=== PATIENT | male | born 1985 | race Two or more races ===

== ENCOUNTER 2019-04-28 16:00 | Inpatient (IN) | payer BC ==
[~2019-04-28] VITALS: Ht 160 cm; Wt 54.4 kg
--- NOTE | 2019-04-28 16:18 | EKG ---
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
[2019-04-28 16:35] LABS: BASO % 0 % (0-3); EOS # 0.5 x10^3/uL (0.0-0.7); EOS % 6 % (0-3); HEMATOCRIT 44.9 % (39.0-53.0); HEMOGLOBIN 15.4 g/dL (13.0-17.5); LYMPH # 2.1 x10^3/uL (1.0-4.8); LYMPH % 26 % (24-48); MEAN CORPUSCULAR HEMOGLOBIN 28 pg (25-35); MEAN CORPUSCULAR HGB CONC 34 g/dL (31-37); MEAN CORPUSCULAR VOLUME 81 fL (79-100); MONO # 0.7 x10^3/uL (0.0-1.1); MONO % 8 % (0-9); NEUT # 4.7 x10^3/uL (1.8-7.7); NEUT % 59 % (31-73); PLATELET COUNT 207 x10^3/uL (140-400); RED BLOOD COUNT 5.58 x10^6/uL (4.30-5.70); RED CELL DISTRIBUTION WIDTH 13.8 % (11.5-14.5); WHITE BLOOD COUNT 7.9 x10^3/uL (4.0-11.0)
[2019-04-28 16:44] LABS: PROTHROMBIN TIME PATIENT 12.7 SEC (11.7-14.0)
[2019-04-28 16:50] LABS: CALCIUM 8.7 mg/dL (8.5-10.1); CREATININE 0.8 mg/dL (0.7-1.3); GFR 111.3; POTASSIUM 3.1 mmol/L (3.5-5.1)
--- NOTE | 2019-04-28 16:52 | PHYS DOC ---
Adult General Chief Complaint Chief Complaint: DIZZY/LIGHT HEADED HPI HPI Patient is a 34 year old male who presents with continued from urgent care today because again EKG on him and it has had possible pericarditis. Patient states she's been having frontal lobe and back of the head pain that is more so with movement. He states that times he has tingling on the bottom of both of his feet but this is more so after he's been sitting for a long period of time. Patient states at times the last week he's had dizziness where the room will be spinning that comes and goes. Patient states that nothing causes the dizziness and it just comes at random. Patient states he also has lower back mid lumbar pain without radiation and is more so when he bends over and tries to stand back up. States he's had a history of a heart block a long time ago and he was on medication for it but they took him off the medication. Patient is a poor historian. Review of Systems Review of Systems Musculoskeletal: low back pain or joint pain [] Neurologic: headache, dizziness, denies focal weakness or sensory changes [] All other systems were reviewed and found to be within normal limits, except as documented in this note. Current Medications Current Medications Current Medications Medications (Trade) Dose Ordered Sig/Clif Start Time Stop Time Status Last Admin Dose Admin Acetaminophen (Tylenol) 650 mg PRN Q4HRS PRN 04/28/19 19:30 04/29/19 19:29 Azithromycin 250 ml @ 250 mls/hr 1X ONCE 04/28/19 18:30 04/28/19 19:29 DC 04/28/19 18:47 250 MLS/HR Ceftriaxone Sodium (Rocephin) 1 gm 1X ONCE 04/28/19 18:30 04/28/19 18:31 DC 04/28/19 18:47 1 GM Diphenhydramine HCl (Benadryl) 25 mg 1X ONCE 04/28/19 17:00 04/28/19 17:01 DC 04/28/19 17:24 25 MG Fentanyl Citrate (Fentanyl 2ml Vial) 50 mcg PRN Q1HR PRN 04/28/19 19:30 04/29/19 19:29 Info (CONTRAST GIVEN -- Rx MONITORING) 1 each PRN DAILY PRN 04/28/19 18:45 04/30/19 18:44 Iohexol (Omnipaque 350 Mg/ml) 90 ml 1X ONCE 04/28/19 18:45 04/28/19 18:46 DC 04/28/19 19:30 90 ML Ketorolac Tromethamine (Toradol 30mg Vial) 30 mg 1X ONCE 04/28/19 18:00 04/28/19 18:01 DC 04/28/19 18:46 30 MG Ondansetron HCl (Zofran) 4 mg PRN Q8HRS PRN 04/28/19 19:30 04/29/19 19:29 Potassium Chloride (Klor-Con) 20 meq 1X ONCE 04/28/19 18:00 04/28/19 18:01 DC 04/28/19 18:47 20 MEQ Prochlorperazine Edisylate (Compazine) 10 mg 1X ONCE 04/28/19 17:00 04/28/19 17:01 DC 04/28/19 17:00 10 MG Sodium Chloride 1,000 ml @ 1,000 mls/hr 1X ONCE 04/28/19 17:00 04/28/19 17:59 DC 04/28/19 17:23 1,000 MLS/HR Allergies Allergies Allergies Coded Allergies Type Severity Reaction Last Updated Verified No Known Drug Allergies 04/28/19 No Physical Exam Physical Exam Constitutional: Well developed, well nourished, no acute distress, non-toxic appearance. [] HENT: Normocephalic, atraumatic, bilateral external ears normal, oropharynx moist, no oral exudates, nose normal. [] Eyes: PERRLA, EOMI, conjunctiva normal, no discharge. [] Neck: Normal range of motion, no tenderness, supple, no stridor. [] Cardiovascular:Heart rate regular rhythm, no murmur [] Lungs & Thorax: Bilateral breath sounds clear to auscultation [] Abdomen: Bowel sounds normal, soft, no tenderness, no masses, no pulsatile masses. [] Skin: Warm, dry, no erythema, no rash. [] Back: No tenderness, no CVA tenderness. [] Extremities: No tenderness, no cyanosis, no clubbing, ROM intact, no edema. [] Neurologic: Alert and oriented X 3, normal motor function, normal sensory function, no focal deficits noted. [] Psychologic: Affect normal, judgement normal, mood normal. Normal Physical exam.[] Current Patient Data Vital Signs Vital Signs Date Time Temp Pulse Resp B/P (MAP) Pulse Ox O2 Delivery O2 Flow Rate FiO2 04/28/19 16:00 98.8 85 16 154/96 (115) 97 Room Air 98.8 Lab Values Laboratory Tests Test 04/28/19 16:10 04/28/19 18:30 White Blood Count 7.9 x10^3/uL (4.0-11.0) Red Blood Count 5.58 x10^6/uL (4.30-5.70) Hemoglobin 15.4 g/dL (13.0-17.5) Hematocrit 44.9 % (39.0-53.0) Mean Corpuscular Volume 81 fL (79-100) Mean Corpuscular Hemoglobin 28 pg (25-35) Mean Corpuscular Hemoglobin Concent 34 g/dL (31-37) Red Cell Distribution Width 13.8 % (11.5-14.5) Platelet Count 207 x10^3/uL (140-400) Neutrophils (%) (Auto) 59 % (31-73) Lymphocytes (%) (Auto) 26 % (24-48) Monocytes (%) (Auto) 8 % (0-9) Eosinophils (%) (Auto) 6 % (0-3) H Basophils (%) (Auto) 0 % (0-3) Neutrophils # (Auto) 4.7 x10^3/uL (1.8-7.7) Lymphocytes # (Auto) 2.1 x10^3/uL (1.0-4.8) Monocytes # (Auto) 0.7 x10^3/uL (0.0-1.1) Eosinophils # (Auto) 0.5 x10^3/uL (0.0-0.7) Basophils # (Auto) 0.0 x10^3/uL (0.0-0.2) Erythrocyte Sedimentation Rate 23 (0-15) H Prothrombin Time 12.7 SEC (11.7-14.0) Prothrombin Time INR 1.0 (0.8-1.1) D-Dimer (Alis) 0.31 ug/mlFEU (0.00-0.50) Sodium Level 139 mmol/L (136-145) Potassium Level 3.1 mmol/L (3.5-5.1) L Chloride Level 103 mmol/L (98-107) Carbon Dioxide Level 25 mmol/L (21-32) Anion Gap 11 (6-14) Blood Urea Nitrogen 8 mg/dL (8-26) Creatinine 0.8 mg/dL (0.7-1.3) Estimated GFR (Cockcroft-Gault) 111.3 BUN/Creatinine Ratio 10 (6-20) Glucose Level 102 mg/dL (70-99) H Calcium Level 8.7 mg/dL (8.5-10.1) Total Bilirubin 0.4 mg/dL (0.2-1.0) Aspartate Amino Transferase (AST) 21 U/L (15-37) Alanine Aminotransferase (ALT) 11 U/L (16-63) L Alkaline Phosphatase 105 U/L (46-116) Troponin I Quantitative < 0.017 ng/mL (0.000-0.055) C-Reactive Protein, Quantitative 8.6 mg/L (0-3.3) H Total Protein 7.9 g/dL (6.4-8.2) Albumin 3.2 g/dL (3.4-5.0) L Albumin/Globulin Ratio 0.7 (1.0-1.7) L Lactic Acid Level 1.3 mmol/L (0.4-2.0) Laboratory Tests 04/28/19 16:10 Laboratory Tests 04/28/19 16:10 EKG EKG Sinus Rhythm and no STEMI[] Interpretation Time: [address] Calderon Radiology/Procedures Radiology/Procedures [] Impressions: [facility] [address] [place] [address] IMAGING REPORT Signed PATIENT: EDA CARO ACCOUNT: [id number] : 1985 LOCATION: ER AGE: 34 SEX: M EXAM STATUS: REG ER ORD. PHYSICIAN: SILVESTRE WOOTEN APRN REASON: PAIN PROCEDURE: LUMBAR SPINE MIN 4V Study: LUMBAR SPINE MIN 4V Indication: Pain. Comparison: None. Findings: Mild ventral wedging of L2 without endplate discontinuity to suggest an acute etiology. Disc spaces are maintained. No advanced facet degeneration. L5 pars defects. Focus of ossification along the L4 spinous process with well-corticated margins. Impression: 1. Chronic-appearing mild ventral wedging of the L2 vertebral body though recommend correlation for pinpoint tenderness. 2. Chronic L5 pars defects without spondylolisthesis of L5 on S1. 3. Well-corticated focus of ossification at the L4 spinous process could be the sequela of remote trauma or developmental. Electronically signed by: JUAN SOLANO MD (04/28/2019 5:17 PM) [facility] DICTATED and SIGNED BY: JUAN SOLANO MD DATE: 04/28/19 1717 [facility] [address] [place] [address] IMAGING REPORT Signed PATIENT: EDA CARO ACCOUNT: [id number] : 1985 LOCATION: ER AGE: 34 SEX: M EXAM STATUS: REG ER ORD. PHYSICIAN: SILVESTRE WOOTEN APRN REASON: HEAD PAIN, NECK PAIN, DIZZY PROCEDURE: CT HEAD AND CERVICAL SPINE WO Exam: CT head and cervical spine without contrast INDICATION: Head pain and neck pain TECHNIQUE: Sequential axial images through the head and cervical spine were obtained without the administration of IV contrast. Comparisons: None FINDINGS: Head: No focal parenchymal lesion or hemorrhage is identified. There is no midline shift or sulcal effacement. No acute vascular territory infarction is identified. Kirkpatrick-white distinction is preserved. The ventricular system is within normal limits without compression hydrocephalus. The basal cisterns are well maintained. The visualized portions of the paranasal sinuses and mastoid air cells are well-pneumatized. No acute fractures. Cervical spine: Vertebral body heights and alignment are well-maintained. Fracture to the cervical spine is not identified. No significant spondylotic changes identified in the cervical spine. There is a partially visualized at least 0.9 cm nodule in the right lung apex. IMPRESSION: 1. No acute intracranial abnormality. 2. Negative CT C-spine for acute traumatic injury. 3. Partially visualized at least 9 mm nodule at the right lung apex. Further evaluation with nonemergent chest CT is recommended. Exposure: One or more of the following in the visualized dose reduction techniques were utilized for this examination: 1. Automated exposure control 2. Adjustment of the MA and/or KV according to patient size Use of iterative of reconstructive technique Electronically signed by: Belinda Chiang MD (04/28/2019 5:07 PM) [facility] DICTATED and SIGNED BY: BELINDA CHIANG MD DATE: 04/28/19 17[id number] [place] [address] IMAGING REPORT Signed PATIENT: EDA CARO ACCOUNT: [id number] : 1985 LOCATION: ER AGE: 34 SEX: M EXAM STATUS: REG ER ORD. PHYSICIAN: SILVESTRE WOOTEN APRN REASON: PAIN PROCEDURE: CHEST PA & LATERAL Study: CHEST PA LATERAL Indication: Pain. Comparison: None. Findings: Hazy opacities at the periphery of the right upper lobe extending to the pleura. No pleural effusion or pneumothorax. Somewhat prominent central vasculature. No displaced rib fracture is seen. No free air under the diaphragm. Impression: Hazy opacities at the periphery of the right upper lobe extending to the pleural margin. The radiographic appearance is nonspecific and could represent infectious infiltrates, pulmonary infarcts or the sequela of a prior infectious or inflammatory insult. Correlation with laboratory analysis and patient history is needed. At a minimum, short-term radiographic follow-up is needed to document stability or resolution. Electronically signed by: JUAN SOLANO MD (04/28/2019 5:11 PM) [facility] DICTATED and SIGNED BY: JUAN SOLANO MD DATE: 04/28/[address] [address] IMAGING REPORT Signed PATIENT: EDA CARO ACCOUNT: [id number] : 1985 LOCATION: ER AGE: 34 SEX: M EXAM STATUS: REG ER ORD. PHYSICIAN: SILVESTRE WOOTNE APRN REASON: abnormal chest xray PROCEDURE: CT ANGIOGRAPHY CHEST Exam: CT of chest with contrast INDICATION: Abnormal chest x-ray TECHNIQUE: Sequential axial images through the chest obtained following the administration of 90 mL of Omni 300 IV contrast. Sagittal and coronal reformatted images were reconstructed from the axial data and reviewed. 3-D reformatted images were reconstructed from the axial data and reviewed. Comparisons: Chest x-ray same day FINDINGS: Visualized portions of the thyroid are unremarkable. Several prominent mildly enlarged prevascular and pretracheal lymph nodes are noted. Heart size is normal. No pericardial effusion. Thoracic aorta has a normal course and caliber. Pulmonary artery is not enlarged. No pulmonary embolus is identified within the main, lobar or segmental pulmonary arteries. Airways are patent. There is nodular opacities at the right upper lobe which are clustered. The largest nodule in the right lung apex is cavitary measuring up to 2.2 cm in diameter. No pneumothorax. No pleural effusion or thickening. Partially visualized cystic lesions at the kidneys bilaterally. No suspicious osseous lesions or acute fractures. IMPRESSION: 1. Numerous pulmonary nodules clustered in the right upper lobe one of which is cavitary. Findings are favored to be infectious rather than malignant in etiology, given distribution. Follow-up imaging posttreatment to ensure resolution is recommended. 2. No pulmonary embolus identified within the main, lobar or segmental pulmonary arteries. Exposure: One or more of the following in the visualized dose reduction techniques were utilized for this examination: 1. Automated exposure control 2. Adjustment of the MA and/or KV according to patient size 3. Use of iterative of reconstructive technique Electronically signed by: Belinda Chiang MD (04/28/2019 7:54 PM) [facility] DICTATED and SIGNED BY: BELINDA CHIANG MD DATE: 04/28/191953 Course & Med Decision Making Course & Med Decision Making Alert and oriented. Ambulatory with a steady gait. No neck stiffness and patient has full range of motion of his neck. Patient at first stated that he had upper neck pain but when asked to point to where his neck pain was he pointed to the back base of the skull. No tenderness to palpation to the neck or his back. No spinal any bony back tenderness. No paraspinal back tenderness. Denies injuries. Patient has frontal lobe headache and headache to the lower back of the skull. Patient denies shortness of breath, chest pain, fever, visual changes, weakness, cough, palpitations, recent illness, abdominal pain, nausea, vomiting, diarrhea. Skin pink warm and dry. Speaks in full Sentences. PERRLA. Moves all extremities equally. Family members in the room interpreting for the patient. Patient states at home he had only been taking Tylenol to help with his pain. Patient states his symptoms have been going on for 1 week. Patient's rating his overall pain an 8 out of 10 at this time. Patient denies any dizziness at this time. EKG and emergency room is sinus rhythm and no STEMI. No extremity swelling. Lungs are clear to auscultation all lobes. Heart rate regular rate and rhythm and no murmurs or abnormal heart sounds. No pain to the chest with palpa tion. He denies any pleuritic chest pain. Vital signs are within normal limits. Patient speaks Lao. Chest xray shows Impression: Hazy opacities at the periphery of the right upper lobe extending to the pleural margin. The radiographic appearance is nonspecific and could represent infectious infiltrates, pulmonary infarcts or the sequela of a prior infectious or inflammatory insult. Correlation with laboratory analysis and patient history is needed. At a minimum, short-term radiographic follow-up is needed to document stability or resolution. CT head and cervical spine: IMPRESSION: 1. No acute intracranial abnormality. 2. Negative CT C-spine for acute traumatic injury. 3. Partially visualized at least 9 mm nodule at the right lung apex. Further evaluation with nonemergent chest CT is recommended. Lumbar spine: Impression: 1. Chronic-appearing mild ventral wedging of the L2 vertebral body though recommend correlation for pinpoint tenderness. 2. Chronic L5 pars defects without spondylolisthesis of L5 on S1. 3. Well-corticated focus of ossification at the L4 spinous process could be the sequela of remote trauma or developmental. Sedimentation rate and CRP are elevated. Chest x-ray is negative as stated above. When orthostatics were being done patient was unable to stand because he states that he feels like he is drunk. Patient states he started feeling that way when he sat up. Layin heart rate, 125/74; sitting 88 heart rate, 137/86. I have started the patient on azithromycin and Rocephin due to possible pneumonia. I consulted with Dr Guzman on this patient he has examined the patient. I have spoken to Dr. Jarquin who states to order a quantitative urine cold blood tests on the patient. Patient is placed on TB precautions. Patient is admitted t o the [facility]. Dragon Disclaimer Dragon Disclaimer This electronic medical record was generated, in whole or in part, using a voice recognition dictation system. NIHSS Stroke Scale NIH Stroke Scale: NIH Stroke Scale Response (Comments) Value Level of Consciousness: 0 Alert/Responsive 0 LOC Questions: 0 Answers both correctly 0 LOC Commands: 0 Performs both tasks 0 Best Gaze: 0 Normal 0 Visual: 0 No visual loss 0 Facial Palsy: 0 Normal, symmetrical 0 Motor - Left Arm 0 No drift 0 Motor - Right Arm 0 No drift 0 Motor - Left Leg 0 No drift 0 Motor: Right Leg 0 No drift 0 Limb Ataxia: 0 Absent 0 Sensory: 0 No loss 0 Best Language: 0 Normal 0 Dysathria: 0 Normal 0 Extinction and Inattention: 0 Normal 0 Total 0 Departure Departure Impression: Primary Impression: Dizziness Additional Impression: Head pain Disposition: 09 ADMITTED INPATIENT Admitting Physician: LEILANI BENÍTEZ) Condition: STABLE Referrals: UNKNOWN PCP NAME (PCP) Problem Qualifiers Additional Impression: Head pain Headache type: unspecified Headache chronicity pattern: acute headache Intractability: not intractable Qualified Codes: R51 - Headache SILVESTRE WOOTEN COUN[employer] Apr 28, 2019 16:52
[2019-04-28] MEDS ORDERED: diphenhydrAMINE 50 MG/ML VIAL IVP ONE (17:00)
[2019-04-28] MEDS ORDERED: PROCHLORPERAZINE 10 MG/2 ML VIAL. IV ONE (17:00)
[2019-04-28] MEDS ORDERED: IV NORMAL SALINE 1000ML BAG 1,000 ML IV ONE (17:00)
[2019-04-28 17:03] LABS: ALBUMIN 3.2 g/dL (3.4-5.0); ALBUMIN/GLOBULIN RATIO 0.7 (1.0-1.7); TOTAL BILIRUBIN 0.4 mg/dL (0.2-1.0); TOTAL PROTEIN 7.9 g/dL (6.4-8.2)
--- NOTE | 2019-04-28 17:10 | RAD ---
Exam: CT head and cervical spine without contrast INDICATION: Head pain and neck pain TECHNIQUE: Sequential axial images through the head and cervical spine were obtained without the administration of IV contrast. Comparisons: None FINDINGS: Head: No focal parenchymal lesion or hemorrhage is identified. There is no midline shift or sulcal effacement. No acute vascular territory infarction is identified. Kirkpatrick-white distinction is preserved. The ventricular system is within normal limits without compression hydrocephalus. The basal cisterns are well maintained. The visualized portions of the paranasal sinuses and mastoid air cells are well-pneumatized. No acute fractures. Cervical spine: Vertebral body heights and alignment are well-maintained. Fracture to the cervical spine is not identified. No significant spondylotic changes identified in the cervical spine. There is a partially visualized at least 0.9 cm nodule in the right lung apex. IMPRESSION: 1. No acute intracranial abnormality. 2. Negative CT C-spine for acute traumatic injury. 3. Partially visualized at least 9 mm nodule at the right lung apex. Further evaluation with nonemergent chest CT is recommended. Exposure: One or more of the following in the visualized dose reduction techniques were utilized for this examination: 1. Automated exposure control 2. Adjustment of the MA and/or KV according to patient size Use of iterative of reconstructive technique Electronically signed by: Belinda Thornton MD (04/28/2019 5:07 PM) [facility]
--- NOTE | 2019-04-28 17:14 | RAD ---
Study: CHEST PA LATERAL Indication: Pain. Comparison: None. Findings: Hazy opacities at the periphery of the right upper lobe extending to the pleura. No pleural effusion or pneumothorax. Somewhat prominent central vasculature. No displaced rib fracture is seen. No free air under the diaphragm. Impression: Hazy opacities at the periphery of the right upper lobe extending to the pleural margin. The radiographic appearance is nonspecific and could represent infectious infiltrates, pulmonary infarcts or the sequela of a prior infectious or inflammatory insult. Correlation with laboratory analysis and patient history is needed. At a minimum, short-term radiographic follow-up is needed to document stability or resolution. Electronically signed by: JUAN SOLANO MD (04/28/2019 5:11 PM) [facility]
--- NOTE | 2019-04-28 17:20 | RAD ---
Study: LUMBAR SPINE MIN 4V Indication: Pain. Comparison: None. Findings: Mild ventral wedging of L2 without endplate discontinuity to suggest an acute etiology. Disc spaces are maintained. No advanced facet degeneration. L5 pars defects. Focus of ossification along the L4 spinous process with well-corticated margins. Impression: 1. Chronic-appearing mild ventral wedging of the L2 vertebral body though recommend correlation for pinpoint tenderness. 2. Chronic L5 pars defects without spondylolisthesis of L5 on S1. 3. Well-corticated focus of ossification at the L4 spinous process could be the sequela of remote trauma or developmental. Electronically signed by: JUAN SOLANO MD (04/28/2019 5:17 PM) [facility]
[2019-04-28] MEDS ORDERED: POTASSIUM CHLORIDE 20 MEQ TABLET.ER. PO ONE (18:00)
[2019-04-28] MEDS ORDERED: KETOROLAC 30 MG/ML VIAL. IVP ONE (18:00)
[2019-04-28] MEDS ORDERED: AZITHRMYCN 500MG IVPB FOR OMNI 250 ML IV ONE (18:30)
[2019-04-28] MEDS ORDERED: cefTRIAXone IV Push 1 GM VIAL. IVP ONE (18:30)
[2019-04-28] MEDS ORDERED: CONTRAST GIVEN. MC PRN (18:45)
[2019-04-28] MEDS ORDERED: IOHEXOL 350 MG/ML 100 ML VIAL. IV ONE (18:45)
[2019-04-28] MEDS ORDERED: fentaNYL PF VIAL 100 MCG/2 ML VIAL IV PRN (19:30)
[2019-04-28] MEDS ORDERED: ONDANSETRON PF 4 MG/2 ML VIAL. IV PRN (19:30)
[2019-04-28] MEDS ORDERED: ACETAMINOPHEN 325 MG TABLET. PO PRN (19:30)
--- NOTE | 2019-04-28 19:57 | RAD ---
Exam: CT of chest with contrast INDICATION: Abnormal chest x-ray TECHNIQUE: Sequential axial images through the chest obtained following the administration of 90 mL of Omni 300 IV contrast. Sagittal and coronal reformatted images were reconstructed from the axial data and reviewed. 3-D reformatted images were reconstructed from the axial data and reviewed. Comparisons: Chest x-ray same day FINDINGS: Visualized portions of the thyroid are unremarkable. Several prominent mildly enlarged prevascular and pretracheal lymph nodes are noted. Heart size is normal. No pericardial effusion. Thoracic aorta has a normal course and caliber. Pulmonary artery is not enlarged. No pulmonary embolus is identified within the main, lobar or segmental pulmonary arteries. Airways are patent. There is nodular opacities at the right upper lobe which are clustered. The largest nodule in the right lung apex is cavitary measuring up to 2.2 cm in diameter. No pneumothorax. No pleural effusion or thickening. Partially visualized cystic lesions at the kidneys bilaterally. No suspicious osseous lesions or acute fractures. IMPRESSION: 1. Numerous pulmonary nodules clustered in the right upper lobe one of which is cavitary. Findings are favored to be infectious rather than malignant in etiology, given distribution. Follow-up imaging posttreatment to ensure resolution is recommended. 2. No pulmonary embolus identified within the main, lobar or segmental pulmonary arteries. Exposure: One or more of the following in the visualized dose reduction techniques were utilized for this examination: 1. Automated exposure control 2. Adjustment of the MA and/or KV according to patient size 3. Use of iterative of reconstructive technique Electronically signed by: Belinda Thornton MD (04/28/2019 7:54 PM) [facility]
[2019-04-28 22:25] VITALS: BP 136/89
[2019-04-29 03:50] VITALS: BP 131/77
[2019-04-29 07:00] VITALS: BP 140/93
--- NOTE | 2019-04-29 07:52 | PDOC1 ---
History and Physical Date of Admission Date of Admission DATE: 04/29/19 TIME: 07:50 Identification/Chief Complaint Chief Complaint SEEN IN ER ,patient denies shortness of breath, chest pain, fever, visual changes, weakness, cough, palpitations, recent illness, abdominal pain, nausea, vomiting, diarrhea. Skin pink warm and dry. Speaks in full Sentences. PERRLA. Moves all extremities equally. Family members in the room interpreting for the patient. Patient states at home he had only been taking Tylenol to help with his pain symptoms have been going on for 1 week. pain an 8 out of 10 at this time. Family History Family History: Hypertension Social History Smoke: No ALCOHOL: none Drugs: None Current Problem List Problem List Problems Medical Problems: (1) Dizziness Status: Acute (2) Head pain Status: Acute Current Medications Current Medications Current Medications Prochlorperazine Edisylate (Compazine) 10 mg 1X ONCE IV Last administered on 04/28/19at 17:00; Start 04/28/19 at 17:00; Stop 04/28/19 at 17:01; Status DC Diphenhydramine HCl (Benadryl) 25 mg 1X ONCE IVP Last administered on 04/28/19at 17:24; Start 04/28/19 at 17:00; Stop 04/28/19 at 17:01; Status DC Sodium Chloride 1,000 ml @ 1,000 mls/hr 1X ONCE IV Last administered on 04/28/19at 17:23; Start 04/28/19 at 17:00; Stop 04/28/19 at 17:59; Status DC Potassium Chloride (Klor-Con) 20 meq 1X ONCE PO Last administered on 04/28/19at 18:47; Start 04/28/19 at 18:00; Stop 04/28/19 at 18:01; Status DC Ketorolac Tromethamine (Toradol 30mg Vial) 30 mg 1X ONCE IVP Last administered on 04/28/19at 18:46; Start 04/28/19 at 18:00; Stop 04/28/19 at 18:01; Status DC Azithromycin 250 ml @ 250 mls/hr 1X ONCE IV Last administered on 04/28/19at 18:47; Start 04/28/19 at 18:30; Stop 04/28/19 at 19:29; Status DC Ceftriaxone Sodium (Rocephin) 1 gm 1X ONCE IVP Last administered on 04/28/19at 18:47; Start 04/28/19 at 18:30; Stop 04/28/19 at 18:31; Status DC Iohexol (Omnipaque 350 Mg/ml) 90 ml 1X ONCE IV Last administered on 04/28/19at 19:30; Start 04/28/19 at 18:45; Stop 04/28/19 at 18:46; Status DC Info (CONTRAST GIVEN -- Rx MONITORING) 1 each PRN DAILY PRN MC SEE COMMENTS; Start 04/28/19 at 18:45; Stop 04/30/19 at 18:44 Ondansetron HCl (Zofran) 4 mg PRN Q8HRS PRN IV NAUSEA/VOMITING; Start 04/28/19 at 19:30; Stop 04/29/19 at 19:29 Fentanyl Citrate (Fentanyl 2ml Vial) 50 mcg PRN Q1HR PRN IV PAIN; Start 04/28/19 at 19:30; Stop 04/29/19 at 19:29 Acetaminophen (Tylenol) 650 mg PRN Q4HRS PRN PO FEVER; Start 04/28/19 at 19:30; Stop 04/29/19 at 19:29 Magnesium Sulfate 100 ml @ 25 mls/hr 1X ONCE IV ; Start 04/29/19 at 09:00; Stop 04/29/19 at 12:59 Allergies Allergies: Coded Allergies: No Known Drug Allergies (Unverified , 04/28/19) ROS Review of System Review of Systems Review of Systems Musculoskeletal: low back pain or joint pain [] Neurologic: headache, dizziness, denies focal weakness or sensory changes [] All other systems were reviewed and found to be within normal limits, except as documented in this note. General: YES: Fatigue Hematological and Lymphatic: No: Bleeding Problems, Blood Clots, Blood Transfusions, Brusing, Night Sweats, Pallor, Swollen Lymph Nodes, Other Respiratory: No: Cough, Hemoptysis, Orthopnea, Pleuritic Pain, Shortness of breath, SOB with excertion, Sputum Changes, Stridor, Tachypnea, Wheezing, Other Gastrointestinal: No Nausea, No Vomiting, No Abdominal Pain, No Diarrhea, No Constipation, No Melena, No Hematochezia, No Other Physical Exam Physical Exam Physical Exam Physical Exam Constitutional: Well developed, well nourished, no acute distress, non-toxic appearance. [] HENT: Normocephalic, atraumatic, bilateral external ears normal, oropharynx mo ist, no oral exudates, nose normal. [] Eyes: PERRLA, EOMI, conjunctiva normal, no discharge. [] Neck: Normal range of motion, no tenderness, supple, no stridor. [] Cardiovascular:Heart rate regular rhythm, no murmur [] Lungs & Thorax: Bilateral breath sounds clear to auscultation [] Abdomen: Bowel sounds normal, soft, no tenderness, no masses, no pulsatile masses. [] Skin: Warm, dry, no erythema, no rash. [] Back: No tenderness, no CVA tenderness. [] Extremities: No tenderness, no cyanosis, no clubbing, ROM intact, no edema. [] Neurologic: Alert and oriented X 3, normal motor function, normal sensory function, no focal deficits noted. [] Psychologic: Affect normal, judgement normal, mood normal. General: No acute distress HEENT: EOMI, Mucous membr. moist/pink Abdomen: Soft Neuro: Normal speech, Cranial nerves 3-12 NL Psych/Mental Status: Mental status NL, Mood NL Vitals Vitals Vital Signs Date Time Temp Pulse Resp B/P (MAP) Pulse Ox O2 Delivery O2 Flow Rate FiO2 04/29/19 03:50 98.2 66 17 131/77 (95) 98 Room Air 98.2 Labs Labs Laboratory Tests Test 04/28/19 16:10 04/28/19 18:30 White Blood Count 7.9 x10^3/uL (4.0-11.0) Red Blood Count 5.58 x10^6/uL (4.30-5.70) Hemoglobin 15.4 g/dL (13.0-17.5) Hematocrit 44.9 % (39.0-53.0) Mean Corpuscular Volume 81 fL (79-100) Mean Corpuscular Hemoglobin 28 pg (25-35) Mean Corpuscular Hemoglobin Concent 34 g/dL (31-37) Red Cell Distribution Width 13.8 % (11.5-14.5) Platelet Count 207 x10^3/uL (140-400) Neutrophils (%) (Auto) 59 % (31-73) Lymphocytes (%) (Auto) 26 % (24-48) Monocytes (%) (Auto) 8 % (0-9) Eosinophils (%) (Auto) 6 % (0-3) Basophils (%) (Auto) 0 % (0-3) Neutrophils # (Auto) 4.7 x10^3/uL (1.8-7.7) Lymphocytes # (Auto) 2.1 x10^3/uL (1.0-4.8) Monocytes # (Auto) 0.7 x10^3/uL (0.0-1.1) Eosinophils # (Auto) 0.5 x10^3/uL (0.0-0.7) Basophils # (Auto) 0.0 x10^3/uL (0.0-0.2) Erythrocyte Sedimentation Rate 23 (0-15) Prothrombin Time 12.7 SEC (11.7-14.0) Prothromb Time International Ratio 1.0 (0.8-1.1) D-Dimer (Alis) 0.31 ug/mlFEU (0.00-0.50) Sodium Level 139 mmol/L (136-145) Potassium Level 3.1 mmol/L (3.5-5.1) Chloride Level 103 mmol/L (98-107) Carbon Dioxide Level 25 mmol/L (21-32) Anion Gap 11 (6-14) Blood Urea Nitrogen 8 mg/dL (8-26) Creatinine 0.8 mg/dL (0.7-1.3) Estimated GFR (Cockcroft-Gault) 111.3 BUN/Creatinine Ratio 10 (6-20) Glucose Level 102 mg/dL (70-99) Calcium Level 8.7 mg/dL (8.5-10.1) Magnesium Level 1.7 mg/dL (1.8-2.4) Total Bilirubin 0.4 mg/dL (0.2-1.0) Aspartate Amino Transf (AST/SGOT) 21 U/L (15-37) Alanine Aminotransferase (ALT/SGPT) 11 U/L (16-63) Alkaline Phosphatase 105 U/L (46-116) Troponin I Quantitative < 0.017 ng/mL (0.000-0.055) C-Reactive Protein, Quantitative 8.6 mg/L (0-3.3) Total Protein 7.9 g/dL (6.4-8.2) Albumin 3.2 g/dL (3.4-5.0) Albumin/Globulin Ratio 0.7 (1.0-1.7) Lactic Acid Level 1.3 mmol/L (0.4-2.0) Laboratory Tests Test 04/28/19 16:10 04/28/19 18:30 White Blood Count 7.9 x10^3/uL (4.0-11.0) Red Blood Count 5.58 x10^6/uL (4.30-5.70) Hemoglobin 15.4 g/dL (13.0-17.5) Hematocrit 44.9 % (39.0-53.0) Mean Corpuscular Volume 81 fL (79-100) Mean Corpuscular Hemoglobin 28 pg (25-35) Mean Corpuscular Hemoglobin Concent 34 g/dL (31-37) Red Cell Distribution Width 13.8 % (11.5-14.5) Platelet Count 207 x10^3/uL (140-400) Neutrophils (%) (Auto) 59 % (31-73) Lymphocytes (%) (Auto) 26 % (24-48) Monocytes (%) (Auto) 8 % (0-9) Eosinophils (%) (Auto) 6 % (0-3) Basophils (%) (Auto) 0 % (0-3) Neutrophils # (Auto) 4.7 x10^3/uL (1.8-7.7) Lymphocytes # (Auto) 2.1 x10^3/uL (1.0-4.8) Monocytes # (Auto) 0.7 x10^3/uL (0.0-1.1) Eosinophils # (Auto) 0.5 x10^3/uL (0.0-0.7) Basophils # (Auto) 0.0 x10^3/uL (0.0-0.2) Erythrocyte Sedimentation Rate 23 (0-15) Prothrombin Time 12.7 SEC (11.7-14.0) Prothromb Time International Ratio 1.0 (0.8-1.1) D-Dimer (Alis) 0.31 ug/mlFEU (0.00-0.50) Sodium Level 139 mmol/L (136-145) Potassium Level 3.1 mmol/L (3.5-5.1) Chloride Level 103 mmol/L (98-107) Carbon Dioxide Level 25 mmol/L (21-32) Anion Gap 11 (6-14) Blood Urea Nitrogen 8 mg/dL (8-26) Creatinine 0.8 mg/dL (0.7-1.3) Estimated GFR (Cockcroft-Gault) 111.3 BUN/Creatinine Ratio 10 (6-20) Glucose Level 102 mg/dL (70-99) Calcium Level 8.7 mg/dL (8.5-10.1) Magnesium Level 1.7 mg/dL (1.8-2.4) Total Bilirubin 0.4 mg/dL (0.2-1.0) Aspartate Amino Transf (AST/SGOT) 21 U/L (15-37) Alanine Aminotransferase (ALT/SGPT) 11 U/L (16-63) Alkaline Phosphatase 105 U/L (46-116) Troponin I Quantitative < 0.017 ng/mL (0.000-0.055) C-Reactive Protein, Quantitative 8.6 mg/L (0-3.3) Total Protein 7.9 g/dL (6.4-8.2) Albumin 3.2 g/dL (3.4-5.0) Albumin/Globulin Ratio 0.7 (1.0-1.7) Lactic Acid Level 1.3 mmol/L (0.4-2.0) Images Images Study: CHEST PA LATERAL Indication: Pain. Comparison: None. Findings: Hazy opacities at the periphery of the right upper lobe extending to the pleura. No pleural effusion or pneumothorax. Somewhat prominent central vasculature. No displaced rib fracture is seen. No free air under the diaphragm. Impression: Hazy opacities at the periphery of the right upper lobe extending to the pleural margin. The radiographic appearance is nonspecific and could represent infectious infiltrates, pulmonary infarcts or the sequela of a prior infectious or inflammatory insult. Correlation with laboratory analysis and patient history is needed. At a minimum, short-term radiographic follow-up is needed to document stability or resolution. Electronically signed by: JUAN SOLANO MD (04/28/2019 5:11 PM) [facility] DICTATED and SIGNED BY: JUAN SOLANO MD DATE: 04/28/19 1711 Exam: CT of chest with contrast INDICATION: Abnormal chest x-ray TECHNIQUE: Sequential axial images through the chest obtained following the administration of 90 mL of Omni 300 IV contrast. Sagittal and coronal reformatted images were reconstructed from the axial data and reviewed. 3-D reformatted images were reconstructed from the axial data and reviewed. Comparisons: Chest x-ray same day FINDINGS: Visualized portions of the thyroid are unremarkable. Several prominent mildly enlarged prevascular and pretracheal lymph nodes are noted. Heart size is normal. No pericardial effusion. Thoracic aorta has a normal course and caliber. Pulmonary artery is not enlarged. No pulmonary embolus is identified within the main, lobar or segmental pulmonary arteries. Airways are patent. There is nodular opacities at the right upper lobe which are clustered. The largest nodule in the right lung apex is cavitary measuring up to 2.2 cm in diameter. No pneumothorax. No pleural effusion or thickening. Partially visualized cystic lesions at the kidneys bilaterally. No suspicious osseous lesions or acute fractures. IMPRESSION: 1. Numerous pulmonary nodules clustered in the right upper lobe one of which is cavitary. Findings are favored to be infectious rather than malignant in etiology, given distribution. Follow-up imaging posttreatment to ensure resolution is recommended. 2. No pulmonary embolus identified within the main, lobar or segmental pulmonary arteries. VTE Prophylaxis Ordered VTE Prophylaxis Devices: No VTE Pharmacological Prophylaxi: Yes Assessment/Plan Assessment/Plan IMPRESSION: 1. pulmonary nodules clustered in the right upper lobe one of which is cavitary. //favored to be infectious PLAN ADMIT ID CONSULT PULM CONSULT TB TESTING BRONCHOSCOPY CT CHESt/ ABD/ PELVIS dvt prophylaxis iv rocephin, zithromax 74 MIN PT EXAM, CHART REVIEW, > 50% OF TIME spent with pt exam, chart review, pt care coordination NASRA GAN MD Apr 29, 2019 07:52
[2019-04-29 08:29] LABS: CALCIUM 8.1 mg/dL (8.5-10.1); CREATININE 0.7 mg/dL (0.7-1.3); GFR 129.9; POTASSIUM 3.7 mmol/L (3.5-5.1)
[2019-04-29] MEDS ORDERED: MAGNESIUM SULFATE 4GM 100 ML IV ONE (09:00)
[2019-04-29] MEDS ORDERED: POTASSIUM CHLORIDE 20 MEQ TABLET.ER. PO ONE (09:00)
[2019-04-29] MEDS ORDERED: IOHEXOL 300 MG/ML 100ML VIAL. IV ONE (09:30)
[2019-04-29] MEDS ORDERED: IOHEXOL 240 MG/ML 50ML VIAL. PO ONE (09:30)
[2019-04-29] MEDS ORDERED: CONTRAST GIVEN. MC PRN (09:30)
--- NOTE | 2019-04-29 09:36 | CONS ---
DATE OF CONSULTATION: PULMONARY CONSULTATION ATTENDING PHYSICIAN: Vinicio Morris MD REASON FOR CONSULTATION: Abnormal CT chest, pneumonia, cavitary nodules. HISTORY OF PRESENT ILLNESS: The patient is a 34-year-old male from [facility] who does not speak [place]. It was difficult to obtain much history from the patient and I was able to get hold of his attending anesthesiologist who can speak a little bit [place]. According to him, the patient was brought into the hospital as he was complaining of dizziness. He does not complain of much cough, fever or night sweats. He does not know whether he had a PPD done when he arrived in [place] 3 years ago. There are no obvious TB exposures. The patient underwent chest x-ray, which was abnormal with infiltrate in the right upper lobe. As a result, he underwent CTA chest. He had numerous nodules in the right upper lobe, largest of them is in the right lung apex, which is cavitary in about 2.2 cm in size. The patient was started on antibiotic Rocephin along with Zithromax. I have been asked to see him for further evaluation. PAST MEDICAL HISTORY: Significant for some chronic low back pain. PAST SURGICAL HISTORY: No surgeries. ALLERGIES: None. MEDICATIONS: Reviewed as listed in the MRAD. REVIEW OF SYSTEMS: Ten-point systems were obtained. Pertinent positives discussed in my history of present illness, otherwise noncontributory. SOCIAL HISTORY: No significant tobacco history. PHYSICAL EXAMINATION: VITAL SIGNS: Reviewed. He is afebrile. Blood pressure is stable. HEENT: Sclerae nonicteric. NECK: Supple. LUNGS: Clear. CARDIOVASCULAR: Regular rate and rhythm. ABDOMEN: Soft. EXTREMITIES: With no pitting edema. LABORATORY DATA: Reviewed. White cell count 7.9, hemoglobin 15.4, platelets are 207. Sed rate is 23. BUN and creatinine normal. Sodium 143. Troponin less than 0.017. C-reactive protein is 8.6. D-dimer 0.31. IMPRESSION: Multiple right upper lobe nodules, largest of them is 2.2 cm in size and is cavitary. This is a patient who presents with dizziness and headache. There is a paucity of detailed history due to language barrier. However, the differential diagnosis would certainly include infectious etiology such as tuberculosis, cavitary Staph pneumonia, etc.; however, noninfectious etiologies would also include pulmonary vasculitis/Tiffanie's granulomatosis. At this time, he would benefit from bronchoscopy to obtain cultures and I would recommend keep him in respiratory isolation. Alternate option would be to do a CT-guided biopsy of the cavitary nodule. RECOMMENDATIONS: 1. Continue respiratory isolation. 2. Discussed with the patient's landcare facilitator and then he agrees to proceed with bronchoscopy. 3. Would recommend connective tissue workup as an outpatient as it is not permitted while in the hospital. 4. Obtain CT abdomen and pelvis . CT of the head with no malignancy. 5. Continue broad-spectrum antibiotics. 6. ID consult.d/w DR EDUARDO 7. Discussed with RN. We will follow along with you. GENEVIEVE CHAIREZ MD DR: LATOYA/nelly JOB#: [id number] / [id number] TOMMY
[2019-04-29 11:00] VITALS: BP 146/92
--- NOTE | 2019-04-29 11:40 | PDOC ---
Infectious Disease Note Vital Sign Vital Signs Vital Signs Date Time Temp Pulse Resp B/P (MAP) Pulse Ox O2 Delivery O2 Flow Rate FiO2 04/29/19 11:00 98.5 72 16 146/92 (110) 98 Room Air 98.5 Labs Lab Laboratory Tests Test 04/28/19 16:10 04/28/19 18:30 04/29/19 04:45 White Blood Count 7.9 x10^3/uL (4.0-11.0) Red Blood Count 5.58 x10^6/uL (4.30-5.70) Hemoglobin 15.4 g/dL (13.0-17.5) Hematocrit 44.9 % (39.0-53.0) Mean Corpuscular Volume 81 fL (79-100) Mean Corpuscular Hemoglobin 28 pg (25-35) Mean Corpuscular Hemoglobin Concent 34 g/dL (31-37) Red Cell Distribution Width 13.8 % (11.5-14.5) Platelet Count 207 x10^3/uL (140-400) Neutrophils (%) (Auto) 59 % (31-73) Lymphocytes (%) (Auto) 26 % (24-48) Monocytes (%) (Auto) 8 % (0-9) Eosinophils (%) (Auto) 6 % (0-3) Basophils (%) (Auto) 0 % (0-3) Neutrophils # (Auto) 4.7 x10^3/uL (1.8-7.7) Lymphocytes # (Auto) 2.1 x10^3/uL (1.0-4.8) Monocytes # (Auto) 0.7 x10^3/uL (0.0-1.1) Eosinophils # (Auto) 0.5 x10^3/uL (0.0-0.7) Basophils # (Auto) 0.0 x10^3/uL (0.0-0.2) Erythrocyte Sedimentation Rate 23 (0-15) Prothrombin Time 12.7 SEC (11.7-14.0) Prothromb Time International Ratio 1.0 (0.8-1.1) D-Dimer (Alis) 0.31 ug/mlFEU (0.00-0.50) Sodium Level 139 mmol/L (136-145) 143 mmol/L (136-145) Potassium Level 3.1 mmol/L (3.5-5.1) 3.7 mmol/L (3.5-5.1) Chloride Level 103 mmol/L (98-107) 109 mmol/L (98-107) Carbon Dioxide Level 25 mmol/L (21-32) 26 mmol/L (21-32) Anion Gap 11 (6-14) 8 (6-14) Blood Urea Nitrogen 8 mg/dL (8-26) 8 mg/dL (8-26) Creatinine 0.8 mg/dL (0.7-1.3) 0.7 mg/dL (0.7-1.3) Estimated GFR (Cockcroft-Gault) 111.3 129.9 BUN/Creatinine Ratio 10 (6-20) Glucose Level 102 mg/dL (70-99) 89 mg/dL (70-99) Calcium Level 8.7 mg/dL (8.5-10.1) 8.1 mg/dL (8.5-10.1) Magnesium Level 1.7 mg/dL (1.8-2.4) Total Bilirubin 0.4 mg/dL (0.2-1.0) Aspartate Amino Transf (AST/SGOT) 21 U/L (15-37) Alanine Aminotransferase (ALT/SGPT) 11 U/L (16-63) Alkaline Phosphatase 105 U/L (46-116) Troponin I Quantitative < 0.017 ng/mL (0.000-0.055) C-Reactive Protein, Quantitative 8.6 mg/L (0-3.3) Total Protein 7.9 g/dL (6.4-8.2) Albumin 3.2 g/dL (3.4-5.0) Albumin/Globulin Ratio 0.7 (1.0-1.7) Lactic Acid Level 1.3 mmol/L (0.4-2.0) Objective Assessment pt seen, consult dictated Plan Plan of Care / ALISA EDUARDO MD Apr 29, 2019 11:40
[2019-04-29] MEDS ORDERED: LIDOCAINE 1% Multi-Dose 20 ML VIAL. INJ PRN (11:45)
[2019-04-29] MEDS ORDERED: LIDOCAINE 4% TOPICAL 50 ML SOLUTION. MM PRN (11:45)
[2019-04-29] MEDS ORDERED: EPINEPHrine 1 MG/ML VIAL INJ PRN (11:45)
[2019-04-29] MEDS ORDERED: LIDOCAINE 2% VISCOUS 100 ML BOTTLE. MM PRN (11:45)
[2019-04-29] MEDS ORDERED: ALBUTEROL SULFATE 2.5 MG/3 ML NEBU. NEB PRN (11:45)
[2019-04-29] MEDS ORDERED: guaiFENesin ORAL 200 MG/10 ML LIQUID. PO PRN (13:30)
[2019-04-29] MEDS ORDERED: LORazepam 0.5 MG TABLET PO PRN (13:30)
[2019-04-29] MEDS ORDERED: DOCUSATE SODIUM 100 MG CAPSULE. PO PRN (13:30)
[2019-04-29] MEDS ORDERED: ONDANSETRON PF 4 MG/2 ML VIAL. IV PRN (13:30)
[2019-04-29] MEDS ORDERED: ZOLPIDEM 5 MG TABLET. PO PRN (13:30)
[2019-04-29] MEDS ORDERED: cloNIDine HCL 0.1 MG TABLET PO PRN (13:30)
[2019-04-29] MEDS: IPRATRPIUM/ALBUTEROL 0.5/2.5MG 3 ML NEBU. NEB SCH ×3 (13:30→19:59)
[2019-04-29] MEDS ORDERED: 0.9 % SODIUM CHLORIDE 10 ML DISP.SYRIN. IV PRN (13:30)
[2019-04-29] MEDS ORDERED: MAG HYDROX/ALUMINUM HYD/SIMETH 30 ML ORAL.SUSP PO PRN (13:30)
--- NOTE | 2019-04-29 14:37 | RAD ---
EXAM: CT Abdomen and Pelvis with IV contrast CLINICAL HISTORY: Lung nodules, evaluate for malignancy COMPARISON: none TECHNIQUE: Helical CT of the abdomen and pelvis was performed following the administration of intravenous contrast. Axial, coronal and sagittal reformatted images were generated. PQRS compliance statement - One or more of the following individualized dose reduction techniques were utilized for this study: 1. Automated exposure control 2. Adjustment of the mA and/or kV according to patient size 3. Use of iterative reconstruction technique FINDINGS: Lower chest: Lung bases are essentially clear accounting for motion degradation. Abdomen and Pelvis: Subcentimeter hypodense hepatic lesions are too small to accurately characterize. Gallbladder is normal. No biliary ductal dilatation. Pancreas is unremarkable. Adrenal glands are normal. Symmetric nephrograms. Multiple bilateral renal cystic lesions are seen. Additional and numerous bilateral hypodense renal lesions are too small to characterize. Punctate calcifications left upper pole likely scarring/atelectasis. No hydronephrosis or hydroureter. Bladder is unremarkable. Moderate colonic stool content is seen. Appendix is normal. No small or large bowel dilatation. No evidence of bowel obstruction. No abdominal or pelvic lymphadenopathy. No abdominal or pelvic ascites. Bones: Mild wedging of the L2 vertebral body may represent physiologic wedging. Otherwise osseous structures are grossly unremarkable. IMPRESSION: 1. Numerous bilateral hypodense renal lesions are seen, the larger lesions represent cysts, the smaller lesions are too small to accurately characterize. Findings may be seen with polycystic kidney disease. 2. No abdominal or pelvic lymphadenopathy. Electronically signed by: Dannie He MD (04/29/2019 2:34 PM) [id number]
[2019-04-29 15:00] VITALS: BP 139/90
--- NOTE | 2019-04-29 16:25 | NUR ---
SW following pt for dc planning. Chart reviewed. Pt lives at home with family. ID and Pulmonary following. SW will be available as needed.
[2019-04-29] MEDS: IV NORMAL SALINE 1000ML BAG 1,000 ML IV SCH (17:21)
[2019-04-29 19:25] VITALS: BP 137/90
--- NOTE | 2019-04-29 23:24 | CONS ---
DATE OF CONSULTATION: 04/29/2019 REQUESTING PHYSICIAN: Dr. Collado. REASON FOR CONSULTATION: Pulmonary cavitary nodular lesion or pneumonia. HISTORY OF PRESENT ILLNESS: This is a 34-year-old gentleman from [facility]. He is originally [place] who is living in [facility], now he is [place] the [place], presented to the Urgent Care with neck pain, some shortness of breath. The patient was asked to come to the hospital and he got admitted. The patient was found to have a cavitary nodular lesions in the lung, the patient has weight loss. The patient denies any fever, denies any nausea, vomiting, diarrhea. The patient has been now admitted and workup has been ordered. The patient also is supposed to get a bronchoscopy, and the patient has been put on Rocephin and azithromycin. The patient is not able to say how much weight loss he has. In [facility], the patient was told that he had lung, liver and kidney problem, although there is no specific diagnosis that he knows that was given. PAST MEDICAL HISTORY: As I mentioned in the HPI. SOCIAL HISTORY: Negative for smoking, alcohol or drug use. 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 CURRENT MEDICATIONS: Reviewed. PHYSICAL EXAMINATION: GENERAL: Alert and oriented gentleman, not in any distress. VITAL SIGNS: Stable, afebrile. HEENT: NAD. NECK: Supple, no JVP, no lymphadenopathy. LUNGS: Clear. HEART: S1, S2 regular. ABDOMEN: Benign. EXTREMITIES: No edema, cyanosis. SKIN: Unremarkable. NEUROLOGIC: The patient is neurologically alert, awake and appropriate. No focal neurologic deficit. LABORATORY DATA: White count is 7.9, hemoglobin 15.4, platelets are normal. Eosinophils 6%. ESR is 23, BUN and creatinine is normal. Liver functions normal. CT scan of the chest showed multiple pulmonary nodules cluster in the right upper lobe with cavitation. CT abdomen and pelvis is done, results are pending. IMPRESSION: 1. 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 2. Weight loss. 3. Neck and back problems, chronic. RECOMMENDATIONS: Bronchoscopy with bacterial, fungal and AFB stain and culture. Supportive care and we will continue to follow. Discussed with Dr. Nicolas. Thank you very much, Dr. Collado, for giving me the opportunity to participate in this patient's care. ALISA EDUARDO MD DR: MOHAMUD/nelly JOB#: [id number] / [id number] TOMMY
[2019-04-29 23:30] VITALS: BP 139/92
[2019-04-30] MEDS: IV NORMAL SALINE 1000ML BAG 1,000 ML IV SCH ×3 (03:13→21:30)
[2019-04-30 03:35] VITALS: BP 131/87
[2019-04-30 04:02] LABS: BASO % 0 % (0-3); EOS # 0.3 x10^3/uL (0.0-0.7); EOS % 5 % (0-3); HEMATOCRIT 42.1 % (39.0-53.0); HEMOGLOBIN 14.3 g/dL (13.0-17.5); LYMPH # 1.7 x10^3/uL (1.0-4.8); LYMPH % 25 % (24-48); MEAN CORPUSCULAR HEMOGLOBIN 27 pg (25-35); MEAN CORPUSCULAR HGB CONC 34 g/dL (31-37); MEAN CORPUSCULAR VOLUME 81 fL (79-100); MONO # 0.5 x10^3/uL (0.0-1.1); MONO % 7 % (0-9); NEUT # 4.1 x10^3/uL (1.8-7.7); NEUT % 62 % (31-73); PLATELET COUNT 181 x10^3/uL (140-400); RED CELL DISTRIBUTION WIDTH 13.7 % (11.5-14.5); WHITE BLOOD COUNT 6.5 x10^3/uL (4.0-11.0)
[2019-04-30 04:21] LABS: ALBUMIN 2.8 g/dL (3.4-5.0)
[2019-04-30 04:22] LABS: ALBUMIN/GLOBULIN RATIO 0.7 (1.0-1.7); CALCIUM 7.9 mg/dL (8.5-10.1); CREATININE 0.8 mg/dL (0.7-1.3); GFR 111.3; POTASSIUM 3.5 mmol/L (3.5-5.1); TOTAL BILIRUBIN 0.5 mg/dL (0.2-1.0)
[2019-04-30 07:00] VITALS: BP 124/83
[2019-04-30] MEDS ORDERED: IV RINGERS,LACTATED 1000ML 1,000 ML IV SCH (07:00)
[2019-04-30] MEDS ORDERED: EPINEPHrine 1 MG/ML VIAL ONE (07:15)
[2019-04-30] MEDS ORDERED: LIDOCAINE 2% VISCOUS 100 ML BOTTLE. ONE (07:15)
[2019-04-30] MEDS ORDERED: LIDOCAINE 1% Multi-Dose 20 ML VIAL. ONE (07:15)
[2019-04-30] MEDS ORDERED: LIDOCAINE 4% TOPICAL 50 ML SOLUTION. ONE (07:15)
--- NOTE | 2019-04-30 07:22 | PDOC ---
PROGRESS NOTES History of Present Illness History of Present Illness VTE Prophylaxis Ordered VTE Prophylaxis Devices: No VTE Pharmacological Prophylaxi: Yes Assessment/Plan Assessment/Plan IMPRESSION: 1. pulmonary nodules clustered in the right upper lobe one of which is cavitary. //favored to be infectious r/o TB 2. severe protein-caloric malnutrition PLAN ADMIT ID CONSULT PULM CONSULT TB TESTING BRONCHOSCOPY planned CT CHESt/ ABD/ PELVIS dvt prophylaxis iv rocephin, zithromax 38 MIN PT EXAM, CHART REVIEW, > 50% OF TIME spent with pt exam, chart review, pt care coordination Vitals Vitals Vital Signs Date Time Temp Pulse Resp B/P (MAP) Pulse Ox O2 Delivery O2 Flow Rate FiO2 04/30/19 03:35 98.4 64 18 131/87 (102) 98 Room Air 98.4 Physical Exam General: Alert, Oriented X3, Cooperative, No acute distress Heart: Regular rate, Normal S1 Abdomen: Normal bowel sounds, Soft, No tenderness, No hepatosplenomegaly Extremities: No cyanosis Labs LABS PATIENT: EDA CARO ACCOUNT: [id number] : 1985 LOCATION: [address] [place] [address] AGE: 34 SEX: M EXAM STATUS: ADM IN ORD. PHYSICIAN: GENEVIEVE CHAIREZ MD REASON: lung nodules, r/o malignancy PROCEDURE: CT ABD PELV W/ IV CONTRST ONLY EXAM: CT Abdomen and Pelvis with IV contrast CLINICAL HISTORY: Lung nodules, evaluate for malignancy COMPARISON: none TECHNIQUE: Helical CT of the abdomen and pelvis was performed following the administration of intravenous contrast. Axial, coronal and sagittal reformatted images were generated. PQRS compliance statement - One or more of the following individualized dose reduction techniques were utilized for this study: 1. Automated exposure control 2. Adjustment of the mA and/or kV according to patient size 3. Use of iterative reconstruction technique FINDINGS: Lower chest: Lung bases are essentially clear accounting for motion degradation. Abdomen and Pelvis: Subcentimeter hypodense hepatic lesions are too small to accurately characterize. Gallbladder is normal. No biliary ductal dilatation. Pancreas is unremarkable. Adrenal glands are normal. Symmetric nephrograms. Multiple bilateral renal cystic lesions are seen. Additional and numerous bilateral hypodense renal lesions are too small to characterize. Punctate calcifications left upper pole likely scarring/atelectasis. No hydronephrosis or hydroureter. Bladder is unremarkable. Moderate colonic stool content is seen. Appendix is normal. No small or large bowel dilatation. No evidence of bowel obstruction. No abdominal or pelvic lymphadenopathy. No abdominal or pelvic ascites. Bones: Mild wedging of the L2 vertebral body may represent physiologic wedging. Otherwise osseous structures are grossly unremarkable. IMPRESSION: 1. Numerous bilateral hypodense renal lesions are seen, the larger lesions represent cysts, the smaller lesions are too small to accurately characterize. Findings may be seen with polycystic kidney disease. 2. No abdominal or pelvic lymphadenopathy. Electronically signed by: Dannie He MD (04/29/2019 2:34 PM) [id number] PATIENT: EDA CARO ACCOUNT: [id number] : 1985 LOC: [address] [place] [address] AGE: 34 SEX: M STATUS: ADM IN LOCATION: [address] [place] [address] DATE OF SURGERY: BRONCHOSCOPY NOTE INDICATIONS: Possible TB. DESCRIPTION OF PROCEDURE: Informed consent was obtained from the patient's family and consent was obtained. Propofol was used by Anesthesia for sedation. Bronch was introduced through the left nostril. The upper airway was passed. Vocal cords moves equally with respiration. Trachea was entered. No tracheal lesions seen. Right lung was examined, no endobronchial lesions or purulent secretions seen in the right upper lobe, lower lobe or right middle lobe. Bronchoalveolar lavage performed from multiple subsegments of the right upper lobe. Bronch was introduced in the left lung. No purulent secretions seen. No endobronchial lesion seen. IMPRESSION: 1. No endobronchial lesion seen. 2. No mucosal abnormality seen. 3. Bronchoalveolar lavage performed from multiple subsegments of right upper lobe and sent for appropriate studies. GENEVIEVE CHAIREZ MD DR: LATOYA/nelly JOB#: [id number] / [id number] Laboratory Tests Test 04/30/19 03:40 White Blood Count 6.5 x10^3/uL (4.0-11.0) Red Blood Count 5.20 x10^6/uL (4.30-5.70) Hemoglobin 14.3 g/dL (13.0-17.5) Hematocrit 42.1 % (39.0-53.0) Mean Corpuscular Volume 81 fL (79-100) Mean Corpuscular Hemoglobin 27 pg (25-35) Mean Corpuscular Hemoglobin Concent 34 g/dL (31-37) Red Cell Distribution Width 13.7 % (11.5-14.5) Platelet Count 181 x10^3/uL (140-400) Neutrophils (%) (Auto) 62 % (31-73) Lymphocytes (%) (Auto) 25 % (24-48) Monocytes (%) (Auto) 7 % (0-9) Eosinophils (%) (Auto) 5 % (0-3) Basophils (%) (Auto) 0 % (0-3) Neutrophils # (Auto) 4.1 x10^3/uL (1.8-7.7) Lymphocytes # (Auto) 1.7 x10^3/uL (1.0-4.8) Monocytes # (Auto) 0.5 x10^3/uL (0.0-1.1) Eosinophils # (Auto) 0.3 x10^3/uL (0.0-0.7) Basophils # (Auto) 0.0 x10^3/uL (0.0-0.2) Sodium Level 139 mmol/L (136-145) Potassium Level 3.5 mmol/L (3.5-5.1) Chloride Level 105 mmol/L (98-107) Carbon Dioxide Level 24 mmol/L (21-32) Anion Gap 10 (6-14) Blood Urea Nitrogen 11 mg/dL (8-26) Creatinine 0.8 mg/dL (0.7-1.3) Estimated GFR (Cockcroft-Gault) 111.3 BUN/Creatinine Ratio 14 (6-20) Glucose Level 91 mg/dL (70-99) Calcium Level 7.9 mg/dL (8.5-10.1) Total Bilirubin 0.5 mg/dL (0.2-1.0) Aspartate Amino Transf (AST/SGOT) 14 U/L (15-37) Alanine Aminotransferase (ALT/SGPT) 14 U/L (16-63) Alkaline Phosphatase 85 U/L (46-116) Total Protein 7.0 g/dL (6.4-8.2) Albumin 2.8 g/dL (3.4-5.0) Albumin/Globulin Ratio 0.7 (1.0-1.7) Assessment and Plan Assessmemt and Plan Problems Medical Problems: (1) Dizziness Status: Acute (2) Head pain Status: Acute Comment Review of Relevant I have reviewed the following items analilia (where applicable) has been applied. Labs Laboratory Tests Test 04/28/19 16:10 04/28/19 18:30 04/29/19 04:45 04/30/19 03:40 White Blood Count 7.9 x10^3/uL (4.0-11.0) 6.5 x10^3/uL (4.0-11.0) Red Blood Count 5.58 x10^6/uL (4.30-5.70) 5.20 x10^6/uL (4.30-5.70) Hemoglobin 15.4 g/dL (13.0-17.5) 14.3 g/dL (13.0-17.5) Hematocrit 44.9 % (39.0-53.0) 42.1 % (39.0-53.0) Mean Corpuscular Volume 81 fL (79-100) 81 fL (79-100) Mean Corpuscular Hemoglobin 28 pg (25-35) 27 pg (25-35) Mean Corpuscular Hemoglobin Concent 34 g/dL (31-37) 34 g/dL (31-37) Red Cell Distribution Width 13.8 % (11.5-14.5) 13.7 % (11.5-14.5) Platelet Count 207 x10^3/uL (140-400) 181 x10^3/uL (140-400) Neutrophils (%) (Auto) 59 % (31-73) 62 % (31-73) Lymphocytes (%) (Auto) 26 % (24-48) 25 % (24-48) Monocytes (%) (Auto) 8 % (0-9) 7 % (0-9) Eosinophils (%) (Auto) 6 % (0-3) 5 % (0-3) Basophils (%) (Auto) 0 % (0-3) 0 % (0-3) Neutrophils # (Auto) 4.7 x10^3/uL (1.8-7.7) 4.1 x10^3/uL (1.8-7.7) Lymphocytes # (Auto) 2.1 x10^3/uL (1.0-4.8) 1.7 x10^3/uL (1.0-4.8) Monocytes # (Auto) 0.7 x10^3/uL (0.0-1.1) 0.5 x10^3/uL (0.0-1.1) Eosinophils # (Auto) 0.5 x10^3/uL (0.0-0.7) 0.3 x10^3/uL (0.0-0.7) Basophils # (Auto) 0.0 x10^3/uL (0.0-0.2) 0.0 x10^3/uL (0.0-0.2) Erythrocyte Sedimentation Rate 23 (0-15) Prothrombin Time 12.7 SEC (11.7-14.0) Prothromb Time International Ratio 1.0 (0.8-1.1) D-Dimer (Alis) 0.31 ug/mlFEU (0.00-0.50) Sodium Level 139 mmol/L (136-145) 143 mmol/L (136-145) 139 mmol/L (136-145) Potassium Level 3.1 mmol/L (3.5-5.1) 3.7 mmol/L (3.5-5.1) 3.5 mmol/L (3.5-5.1) Chloride Level 103 mmol/L (98-107) 109 mmol/L (98-107) 105 mmol/L (98-107) Carbon Dioxide Level 25 mmol/L (21-32) 26 mmol/L (21-32) 24 mmol/L (21-32) Anion Gap 11 (6-14) 8 (6-14) 10 (6-14) Blood Urea Nitrogen 8 mg/dL (8-26) 8 mg/dL (8-26) 11 mg/dL (8-26) Creatinine 0.8 mg/dL (0.7-1.3) 0.7 mg/dL (0.7-1.3) 0.8 mg/dL (0.7-1.3) Estimated GFR (Cockcroft-Gault) 111.3 129.9 111.3 BUN/Creatinine Ratio 10 (6-20) 14 (6-20) Glucose Level 102 mg/dL (70-99) 89 mg/dL (70-99) 91 mg/dL (70-99) Calcium Level 8.7 mg/dL (8.5-10.1) 8.1 mg/dL (8.5-10.1) 7.9 mg/dL (8.5-10.1) Magnesium Level 1.7 mg/dL (1.8-2.4) Total Bilirubin 0.4 mg/dL (0.2-1.0) 0.5 mg/dL (0.2-1.0) Aspartate Amino Transf (AST/SGOT) 21 U/L (15-37) 14 U/L (15-37) Alanine Aminotransferase (ALT/SGPT) 11 U/L (16-63) 14 U/L (16-63) Alkaline Phosphatase 105 U/L (46-116) 85 U/L (46-116) Troponin I Quantitative < 0.017 ng/mL (0.000-0.055) C-Reactive Protein, Quantitative 8.6 mg/L (0-3.3) Total Protein 7.9 g/dL (6.4-8.2) 7.0 g/dL (6.4-8.2) Albumin 3.2 g/dL (3.4-5.0) 2.8 g/dL (3.4-5.0) Albumin/Globulin Ratio 0.7 (1.0-1.7) 0.7 (1.0-1.7) Lactic Acid Level 1.3 mmol/L (0.4-2.0) Laboratory Tests Test 04/30/19 03:40 White Blood Count 6.5 x10^3/uL (4.0-11.0) Red Blood Count 5.20 x10^6/uL (4.30-5.70) Hemoglobin 14.3 g/dL (13.0-17.5) Hematocrit 42.1 % (39.0-53.0) Mean Corpuscular Volume 81 fL (79-100) Mean Corpuscular Hemoglobin 27 pg (25-35) Mean Corpuscular Hemoglobin Concent 34 g/dL (31-37) Red Cell Distribution Width 13.7 % (11.5-14.5) Platelet Count 181 x10^3/uL (140-400) Neutrophils (%) (Auto) 62 % (31-73) Lymphocytes (%) (Auto) 25 % (24-48) Monocytes (%) (Auto) 7 % (0-9) Eosinophils (%) (Auto) 5 % (0-3) Basophils (%) (Auto) 0 % (0-3) Neutrophils # (Auto) 4.1 x10^3/uL (1.8-7.7) Lymphocytes # (Auto) 1.7 x10^3/uL (1.0-4.8) Monocytes # (Auto) 0.5 x10^3/uL (0.0-1.1) Eosinophils # (Auto) 0.3 x10^3/uL (0.0-0.7) Basophils # (Auto) 0.0 x10^3/uL (0.0-0.2) Sodium Level 139 mmol/L (136-145) Potassium Level 3.5 mmol/L (3.5-5.1) Chloride Level 105 mmol/L (98-107) Carbon Dioxide Level 24 mmol/L (21-32) Anion Gap 10 (6-14) Blood Urea Nitrogen 11 mg/dL (8-26) Creatinine 0.8 mg/dL (0.7-1.3) Estimated GFR (Cockcroft-Gault) 111.3 BUN/Creatinine Ratio 14 (6-20) Glucose Level 91 mg/dL (70-99) Calcium Level 7.9 mg/dL (8.5-10.1) Total Bilirubin 0.5 mg/dL (0.2-1.0) Aspartate Amino Transf (AST/SGOT) 14 U/L (15-37) Alanine Aminotransferase (ALT/SGPT) 14 U/L (16-63) Alkaline Phosphatase 85 U/L (46-116) Total Protein 7.0 g/dL (6.4-8.2) Albumin 2.8 g/dL (3.4-5.0) Albumin/Globulin Ratio 0.7 (1.0-1.7) Microbiology 04/28/19 Blood Culture - Preliminary, Resulted NO GROWTH AFTER 1 DAY Medications Current Medications Prochlorperazine Edisylate (Compazine) 10 mg 1X ONCE IV Last administered on 04/28/19at 17:00; Start 04/28/19 at 17:00; Stop 04/28/19 at 17:01; Status DC Diphenhydramine HCl (Benadryl) 25 mg 1X ONCE IVP Last administered on 04/28/19at 17:24; Start 04/28/19 at 17:00; Stop 04/28/19 at 17:01; Status DC Sodium Chloride 1,000 ml @ 1,000 mls/hr 1X ONCE IV Last administered on 04/28/19at 17:23; Start 04/28/19 at 17:00; Stop 04/28/19 at 17:59; Status DC Potassium Chloride (Klor-Con) 20 meq 1X ONCE PO Last administered on 04/28/19at 18:47; Start 04/28/19 at 18:00; Stop 04/28/19 at 18:01; Status DC Ketorolac Tromethamine (Toradol 30mg Vial) 30 mg 1X ONCE IVP Last administered on 04/28/19at 18:46; Start 04/28/19 at 18:00; Stop 04/28/19 at 18:01; Status DC Azithromycin 250 ml @ 250 mls/hr 1X ONCE IV Last administered on 04/28/19at 18:47; Start 04/28/19 at 18:30; Stop 04/28/19 at 19:29; Status DC Ceftriaxone Sodium (Rocephin) 1 gm 1X ONCE IVP Last administered on 04/28/19at 18:47; Start 04/28/19 at 18:30; Stop 04/28/19 at 18:31; Status DC Iohexol (Omnipaque 350 Mg/ml) 90 ml 1X ONCE IV Last administered on 04/28/19at 19:30; Start 04/28/19 at 18:45; Stop 04/28/19 at 18:46; Status DC Info (CONTRAST GIVEN -- Rx MONITORING) 1 each PRN DAILY PRN MC SEE COMMENTS; Start 04/28/19 at 18:45; Stop 04/29/19 at 09:29; Status DC Ondansetron HCl (Zofran) 4 mg PRN Q8HRS PRN IV NAUSEA/VOMITING; Start 04/28/19 at 19:30; Stop 04/29/19 at 13:28; Status DC Fentanyl Citrate (Fentanyl 2ml Vial) 50 mcg PRN Q1HR PRN IV PAIN; Start 04/28/19 at 19:30; Stop 04/29/19 at 19:29; Status DC Acetaminophen (Tylenol) 650 mg PRN Q4HRS PRN PO FEVER; Start 04/28/19 at 19:30; Stop 04/29/19 at 19:29; Status DC Magnesium Sulfate 100 ml @ 25 mls/hr 1X ONCE IV Last administered on at 08:59; Start 04/29/19 at 09:00; Stop 04/29/19 at 12:59; Status DC Potassium Chloride (Klor-Con) 40 meq 1X ONCE PO Last administered on 04/29/19at 08:56; Start 04/29/19 at 09:00; Stop 04/29/19 at 09:01; Status DC Iohexol (Omnipaque 300 Mg/ml) 75 ml 1X ONCE IV Last administered on 04/29/19at 09:30; Start 04/29/19 at 09:30; Stop 04/29/19 at 09:31; Status DC Iohexol (Omnipaque 240 Mg/ml) 30 ml 1X ONCE PO ; Start 04/29/19 at 09:30; Stop 04/29/19 at 09:31; Status DC Info (CONTRAST GIVEN -- Rx MONITORING) 1 each PRN DAILY PRN MC SEE COMMENTS; Start 04/29/19 at 09:30; Stop 05/01/19 at 09:29 Albuterol Sulfate (Ventolin Neb Soln) 2.5 mg PRN 1X PRN NEB SHORTNESS OF BREATH; Start 04/29/19 at 11:45; Stop 04/30/19 at 11:44 Lidocaine HCl (Lidocaine 2% Viscous) 100 ml PRN 1X PRN MM MOUTH PAIN; Start 04/29/19 at 11:45; Stop 04/30/19 at 11:44 Lidocaine HCl (Lidocaine 1% 20ml Vial) 20 ml PRN 1X PRN INJ SEE COMMENTS; Start 04/29/19 at 11:45; Stop 04/30/19 at 11:44 Epinephrine HCl (Adrenalin) 1 mg PRN 1X PRN INJ SEE COMMENTS; Start 04/29/19 at 11:45; Stop 04/30/19 at 11:44 Lidocaine HCl 50 ml PRN 1X PRN MM SEE COMMENTS; Start 04/29/19 at 11:45; Stop 04/30/19 at 11:44 Ringer's Solution 1,000 ml @ 50 mls/hr Q20H IV ; Start 04/30/19 at 07:00; Stop 04/30/19 at 18:59 Sodium Chloride (Normal Saline Flush) 3 ml QSHIFT PRN IV AFTER MEDS AND BLOOD DRAWS; Start 04/29/19 at 13:30 Sodium Chloride 1,000 ml @ 100 mls/hr Q10H IV Last administered on 04/30/19at 03:13; Start 04/29/19 at 13:20 Ondansetron HCl (Zofran) 4 mg PRN Q4HRS PRN IV NAUSEA/VOMITING; Start 04/29/19 at 13:30 Zolpidem Tartrate (Ambien) 5 mg PRN QHS PRN PO INSOMNIA; Start 04/29/19 at 13:30 Acetaminophen (Tylenol) 650 mg PRN Q4HRS PRN PO TEMP OVER 100.4F OR MILD PAIN; Start 04/29/19 at 13:30 Al Hydroxide/Mg Hydroxide (Mylanta Plus Xs) 30 ml PRN DAILY PRN PO HEARTBURN / GAS; Start 04/29/19 at 13:30 Clonidine HCl (Catapres) 0.1 mg PRN Q6HRS PRN PO SBP>160 OR DBP>90; Start 04/29/19 at 13:30 Docusate Sodium (Colace) 100 mg PRN BID PRN PO HARD STOOLS; Start 04/29/19 at 13:30 Albuterol/ Ipratropium (Duoneb) 3 ml Q4H NEB Last administered on 04/29/19at 19:59; Start 04/29/19 at 13:30; Stop 04/29/19 at 20:06; Status DC Guaifenesin (Robitussin) 200 mg PRN Q4HRS PRN PO COUGH; Start 04/29/19 at 13:30 Lorazepam (Ativan) 0.5 mg PRN Q4HRS PRN PO ANXIETY / AGITATION; Start 04/29/19 at 13:30 Enoxaparin Sodium (Lovenox 40mg Syringe) 40 mg DAILY SQ ; Start 04/30/19 at 09:00 Albuterol/ Ipratropium (Duoneb) 3 ml QID NEB ; Start 04/30/19 at 09:00 Epinephrine HCl (Adrenalin) 1 mg STK-MED ONCE .ROUTE ; Start 04/30/19 at 07:15; Stop 04/30/19 at 07:15; Status DC Lidocaine HCl (Lidocaine 1% 20ml Vial) 20 ml STK-MED ONCE .ROUTE ; Start 04/30/19 at 07:15; Stop 04/30/19 at 07:15; Status DC Lidocaine HCl (Lidocaine 2% Viscous) 100 ml STK-MED ONCE .ROUTE ; Start 04/30/19 at 07:15; Stop 04/30/19 at 07:15; Status DC Lidocaine HCl 50 ml STK-MED ONCE .ROUTE ; Start 04/30/19 at 07:15; Stop 04/30/19 at 07:15; Status DC Vitals/I & O Vital Sign - Last 24 Hours 04/29/19 04/29/19 04/29/19 04/29/19 08:00 11:00 15:00 15:56 Temp 98.5 98.8 98.5 98.8 Pulse 72 80 Resp 16 B/P (MAP) 146/92 (110) 139/90 (106) Pulse Ox 98 98 98 O2 Delivery Room Air Room Air Room Air Room Air 04/29/19 04/29/19 04/29/19 04/29/19 19:25 20:00 20:30 23:30 Temp 98.5 98.3 98.5 98.3 Pulse 75 66 Resp 18 18 B/P (MAP) 137/90 (106) 139/92 (108) Pulse Ox 99 99 99 O2 Delivery Room Air Room Air Room Air Room Air 04/30/19 03:35 Temp 98.4 98.4 Pulse 64 Resp 18 B/P (MAP) 131/87 (102) Pulse Ox 98 O2 Delivery Room Air Intake and Output 04/29/19 04/29/19 04/30/19 15:00 23:00 07:00 Intake Total 300 ml 1434 ml Output Total 800 ml 750 ml Balance 300 ml -800 ml 684 ml NASRA GAN MD Apr 30, 2019 07:22
[2019-04-30] MEDS: IPRATRPIUM/ALBUTEROL 0.5/2.5MG 3 ML NEBU. NEB SCH ×4 (08:09→21:00)
[2019-04-30] MEDS: ENOXAPARIN 40 MG/0.4 ML SYRINGE. SQ SCH (09:00)
--- NOTE | 2019-04-30 09:58 | OP ---
DATE OF SURGERY: BRONCHOSCOPY NOTE INDICATIONS: Possible TB. DESCRIPTION OF PROCEDURE: Informed consent was obtained from the patient's family and consent was obtained. Propofol was used by Anesthesia for sedation. Bronch was introduced through the left nostril. The upper airway was passed. Vocal cords moves equally with respiration. Trachea was entered. No tracheal lesions seen. Right lung was examined, no endobronchial lesions or purulent secretions seen in the right upper lobe, lower lobe or right middle lobe. Bronchoalveolar lavage performed from multiple subsegments of the right upper lobe. Bronch was introduced in the left lung. No purulent secretions seen. No endobronchial lesion seen. IMPRESSION: 1. No endobronchial lesion seen. 2. No mucosal abnormality seen. 3. Bronchoalveolar lavage performed from multiple subsegments of right upper lobe and sent for appropriate studies. GENEVIEVE CHAIREZ MD DR: LATOYA/nelly JOB#: [id number] / [id number]
[2019-04-30 11:00] VITALS: BP 137/87
--- NOTE | 2019-04-30 11:40 | PDOC ---
PULMONARY PROGRESS NOTES Subjective no soa no fever Vitals Vital Signs Date Time Temp Pulse Resp B/P (MAP) Pulse Ox O2 Delivery O2 Flow Rate FiO2 04/30/19 10:00 115 16 136/92 95 Room Air 04/30/19 09:45 98.2 6 98.2 General: Alert, No acute distress Lungs: Clear Cardiovascular: S1 Abdomen: Soft Neuro Exam: Alert Extremities: No Edema Skin: Warm Labs Laboratory Tests Test 04/28/19 16:10 04/28/19 18:30 04/29/19 04:45 04/30/19 03:40 White Blood Count 7.9 x10^3/uL (4.0-11.0) 6.5 x10^3/uL (4.0-11.0) Red Blood Count 5.58 x10^6/uL (4.30-5.70) 5.20 x10^6/uL (4.30-5.70) Hemoglobin 15.4 g/dL (13.0-17.5) 14.3 g/dL (13.0-17.5) Hematocrit 44.9 % (39.0-53.0) 42.1 % (39.0-53.0) Mean Corpuscular Volume 81 fL (79-100) 81 fL (79-100) Mean Corpuscular Hemoglobin 28 pg (25-35) 27 pg (25-35) Mean Corpuscular Hemoglobin Concent 34 g/dL (31-37) 34 g/dL (31-37) Red Cell Distribution Width 13.8 % (11.5-14.5) 13.7 % (11.5-14.5) Platelet Count 207 x10^3/uL (140-400) 181 x10^3/uL (140-400) Neutrophils (%) (Auto) 59 % (31-73) 62 % (31-73) Lymphocytes (%) (Auto) 26 % (24-48) 25 % (24-48) Monocytes (%) (Auto) 8 % (0-9) 7 % (0-9) Eosinophils (%) (Auto) 6 % (0-3) 5 % (0-3) Basophils (%) (Auto) 0 % (0-3) 0 % (0-3) Neutrophils # (Auto) 4.7 x10^3/uL (1.8-7.7) 4.1 x10^3/uL (1.8-7.7) Lymphocytes # (Auto) 2.1 x10^3/uL (1.0-4.8) 1.7 x10^3/uL (1.0-4.8) Monocytes # (Auto) 0.7 x10^3/uL (0.0-1.1) 0.5 x10^3/uL (0.0-1.1) Eosinophils # (Auto) 0.5 x10^3/uL (0.0-0.7) 0.3 x10^3/uL (0.0-0.7) Basophils # (Auto) 0.0 x10^3/uL (0.0-0.2) 0.0 x10^3/uL (0.0-0.2) Erythrocyte Sedimentation Rate 23 (0-15) Prothrombin Time 12.7 SEC (11.7-14.0) Prothromb Time International Ratio 1.0 (0.8-1.1) D-Dimer (Alis) 0.31 ug/mlFEU (0.00-0.50) Sodium Level 139 mmol/L (136-145) 143 mmol/L (136-145) 139 mmol/L (136-145) Potassium Level 3.1 mmol/L (3.5-5.1) 3.7 mmol/L (3.5-5.1) 3.5 mmol/L (3.5-5.1) Chloride Level 103 mmol/L (98-107) 109 mmol/L (98-107) 105 mmol/L (98-107) Carbon Dioxide Level 25 mmol/L (21-32) 26 mmol/L (21-32) 24 mmol/L (21-32) Anion Gap 11 (6-14) 8 (6-14) 10 (6-14) Blood Urea Nitrogen 8 mg/dL (8-26) 8 mg/dL (8-26) 11 mg/dL (8-26) Creatinine 0.8 mg/dL (0.7-1.3) 0.7 mg/dL (0.7-1.3) 0.8 mg/dL (0.7-1.3) Estimated GFR (Cockcroft-Gault) 111.3 129.9 111.3 BUN/Creatinine Ratio 10 (6-20) 14 (6-20) Glucose Level 102 mg/dL (70-99) 89 mg/dL (70-99) 91 mg/dL (70-99) Calcium Level 8.7 mg/dL (8.5-10.1) 8.1 mg/dL (8.5-10.1) 7.9 mg/dL (8.5-10.1) Magnesium Level 1.7 mg/dL (1.8-2.4) Total Bilirubin 0.4 mg/dL (0.2-1.0) 0.5 mg/dL (0.2-1.0) Aspartate Amino Transf (AST/SGOT) 21 U/L (15-37) 14 U/L (15-37) Alanine Aminotransferase (ALT/SGPT) 11 U/L (16-63) 14 U/L (16-63) Alkaline Phosphatase 105 U/L (46-116) 85 U/L (46-116) Troponin I Quantitative < 0.017 ng/mL (0.000-0.055) C-Reactive Protein, Quantitative 8.6 mg/L (0-3.3) Total Protein 7.9 g/dL (6.4-8.2) 7.0 g/dL (6.4-8.2) Albumin 3.2 g/dL (3.4-5.0) 2.8 g/dL (3.4-5.0) Albumin/Globulin Ratio 0.7 (1.0-1.7) 0.7 (1.0-1.7) Lactic Acid Level 1.3 mmol/L (0.4-2.0) Laboratory Tests Test 04/30/19 03:40 White Blood Count 6.5 x10^3/uL (4.0-11.0) Red Blood Count 5.20 x10^6/uL (4.30-5.70) Hemoglobin 14.3 g/dL (13.0-17.5) Hematocrit 42.1 % (39.0-53.0) Mean Corpuscular Volume 81 fL (79-100) Mean Corpuscular Hemoglobin 27 pg (25-35) Mean Corpuscular Hemoglobin Concent 34 g/dL (31-37) Red Cell Distribution Width 13.7 % (11.5-14.5) Platelet Count 181 x10^3/uL (140-400) Neutrophils (%) (Auto) 62 % (31-73) Lymphocytes (%) (Auto) 25 % (24-48) Monocytes (%) (Auto) 7 % (0-9) Eosinophils (%) (Auto) 5 % (0-3) Basophils (%) (Auto) 0 % (0-3) Neutrophils # (Auto) 4.1 x10^3/uL (1.8-7.7) Lymphocytes # (Auto) 1.7 x10^3/uL (1.0-4.8) Monocytes # (Auto) 0.5 x10^3/uL (0.0-1.1) Eosinophils # (Auto) 0.3 x10^3/uL (0.0-0.7) Basophils # (Auto) 0.0 x10^3/uL (0.0-0.2) Sodium Level 139 mmol/L (136-145) Potassium Level 3.5 mmol/L (3.5-5.1) Chloride Level 105 mmol/L (98-107) Carbon Dioxide Level 24 mmol/L (21-32) Anion Gap 10 (6-14) Blood Urea Nitrogen 11 mg/dL (8-26) Creatinine 0.8 mg/dL (0.7-1.3) Estimated GFR (Cockcroft-Gault) 111.3 BUN/Creatinine Ratio 14 (6-20) Glucose Level 91 mg/dL (70-99) Calcium Level 7.9 mg/dL (8.5-10.1) Total Bilirubin 0.5 mg/dL (0.2-1.0) Aspartate Amino Transf (AST/SGOT) 14 U/L (15-37) Alanine Aminotransferase (ALT/SGPT) 14 U/L (16-63) Alkaline Phosphatase 85 U/L (46-116) Total Protein 7.0 g/dL (6.4-8.2) Albumin 2.8 g/dL (3.4-5.0) Albumin/Globulin Ratio 0.7 (1.0-1.7) Impression . IMPRESSION: Multiple right upper lobe nodules, largest of them is 2.2 cm in size and is cavitary. This is a patient who presents with dizziness and headache. There is a paucity of detailed history due to language barrier. However, the differential diagnosis would certainly include infectious etiology such as tuberculosis, cavitary Staph pneumonia, etc.; however, noninfectious etiologies would also include pulmonary vasculitis/Tiffanie's granulomatosis. At this time, he would benefit from bronchoscopy to obtain cultures and I would recommend keep him in respiratory isolation. Alternate option would be to do a CT-guided biopsy of the cavitary nodule. Plan . 1. Continue respiratory isolation. 2. 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 3. Would recommend connective tissue workup as an outpatient as it is not permitted while in the hospital. 4. CT abdomen and pelvis with renal cysts. ? polycystic kidney disease. consider renal consult . will leave up to PCP 5. Continue broad-spectrum antibiotics. 6. ID consult.d/w DR EDUARDO 7. Discussed with RN. We will follow along with you. GENEVIEVE CHAIREZ MD Apr 30, 2019 11:40
--- NOTE | 2019-04-30 11:58 | PDOC ---
Infectious Disease Note Subjective Subjective pt is feeling good ROS ROS no n/v/d/ Vital Sign Vital Signs Vital Signs Date Time Temp Pulse Resp B/P (MAP) Pulse Ox O2 Delivery O2 Flow Rate FiO2 04/30/19 10:00 115 16 136/92 95 Room Air 04/30/19 09:45 98.2 6 98.2 Physical Exam PHYSICAL EXAM GENERAL: Alert and oriented gentleman, not in any distress. VITAL SIGNS: Stable, afebrile. HEENT: NAD. NECK: Supple, no JVP, no lymphadenopathy. LUNGS: Clear. HEART: S1, S2 regular. ABDOMEN: Benign. EXTREMITIES: No edema, cyanosis. SKIN: Unremarkable. NEUROLOGIC: The patient is neurologically alert, awake and appropriate. No focal neurologic deficit. Labs Lab Laboratory Tests Test 04/30/19 03:40 White Blood Count 6.5 x10^3/uL (4.0-11.0) Red Blood Count 5.20 x10^6/uL (4.30-5.70) Hemoglobin 14.3 g/dL (13.0-17.5) Hematocrit 42.1 % (39.0-53.0) Mean Corpuscular Volume 81 fL (79-100) Mean Corpuscular Hemoglobin 27 pg (25-35) Mean Corpuscular Hemoglobin Concent 34 g/dL (31-37) Red Cell Distribution Width 13.7 % (11.5-14.5) Platelet Count 181 x10^3/uL (140-400) Neutrophils (%) (Auto) 62 % (31-73) Lymphocytes (%) (Auto) 25 % (24-48) Monocytes (%) (Auto) 7 % (0-9) Eosinophils (%) (Auto) 5 % (0-3) Basophils (%) (Auto) 0 % (0-3) Neutrophils # (Auto) 4.1 x10^3/uL (1.8-7.7) Lymphocytes # (Auto) 1.7 x10^3/uL (1.0-4.8) Monocytes # (Auto) 0.5 x10^3/uL (0.0-1.1) Eosinophils # (Auto) 0.3 x10^3/uL (0.0-0.7) Basophils # (Auto) 0.0 x10^3/uL (0.0-0.2) Sodium Level 139 mmol/L (136-145) Potassium Level 3.5 mmol/L (3.5-5.1) Chloride Level 105 mmol/L (98-107) Carbon Dioxide Level 24 mmol/L (21-32) Anion Gap 10 (6-14) Blood Urea Nitrogen 11 mg/dL (8-26) Creatinine 0.8 mg/dL (0.7-1.3) Estimated GFR (Cockcroft-Gault) 111.3 BUN/Creatinine Ratio 14 (6-20) Glucose Level 91 mg/dL (70-99) Calcium Level 7.9 mg/dL (8.5-10.1) Total Bilirubin 0.5 mg/dL (0.2-1.0) Aspartate Amino Transf (AST/SGOT) 14 U/L (15-37) Alanine Aminotransferase (ALT/SGPT) 14 U/L (16-63) Alkaline Phosphatase 85 U/L (46-116) Total Protein 7.0 g/dL (6.4-8.2) Albumin 2.8 g/dL (3.4-5.0) Albumin/Globulin Ratio 0.7 (1.0-1.7) Micro Microbiology 04/28/19 Blood Culture - Preliminary, Resulted NO GROWTH AFTER 1 DAY Objective Assessment 1. Multiple nodular cavitary lesion in the right upper lobe etiology, possibilities are tuberculosis versus melioidosis, especially [place]. 2. Weight loss. 3. Neck and back problems, chronic. Plan Plan of Care bronch done, culture pending d/w ALISA Mata MD Apr 30, 2019 11:58
[2019-04-30] MEDS ORDERED: PROPOFOL 10 MG/ML (20ML) VIAL. IV ONE (12:00)
[2019-04-30 15:00] VITALS: BP 139/91
[2019-04-30] MEDS: AZITHROMYCIN 500 MG in IV NORMAL SALINE 250ML 250 ML IV SCH (16:00)
[2019-04-30] MEDS: cefTRIAXone IV Push 1 GM VIAL. IVP SCH (16:00)
[2019-04-30 20:00] VITALS: BP 147/85
[2019-04-30 23:49] VITALS: BP 144/92
[2019-05-01 03:00] VITALS: BP 141/95
[2019-05-01 07:50] VITALS: BP 135/82
[2019-05-01] MEDS: IPRATRPIUM/ALBUTEROL 0.5/2.5MG 3 ML NEBU. NEB SCH ×4 (07:50→20:59)
--- NOTE | 2019-05-01 07:54 | PDOC ---
PROGRESS NOTES History of Present Illness History of Present Illness VTE Prophylaxis Ordered VTE Prophylaxis Devices: No VTE Pharmacological Prophylaxi: Yes Assessment/Plan Assessment/Plan IMPRESSION: 1. pulmonary nodules clustered in the right upper lobe one of which is cavitary. //favored to be infectious r/o TB 2. severe protein-caloric malnutrition 3. POSSIBLE POLYCYSTIC KIDNEY DISEASE PLAN ADMIT ID CONSULT PULM CONSULT TB TESTING BRONCHOSCOPY 04/30 CT CHESt/ ABD/ PELVIS dvt prophylaxis iv rocephin, zithromax NEPHROLOGY consult 28 MIN PT EXAM, CHART REVIEW, > 50% OF TIME spent with pt exam, chart review, pt care coordination Vitals Vitals Vital Signs Date Time Temp Pulse Resp B/P (MAP) Pulse Ox O2 Delivery O2 Flow Rate FiO2 05/01/19 03:00 98.7 84 16 141/95 (110) 97 Room Air 98.7 04/30/19 09:45 6 Physical Exam Physical Exam GENERAL: Alert and oriented gentleman, not in any distress. VITAL SIGNS: Stable, afebrile. HEENT: NAD. NECK: Supple, no JVP, no lymphadenopathy. LUNGS: Clear. HEART: S1, S2 regular. ABDOMEN: Benign. EXTREMITIES: No edema, cyanosis. SKIN: Unremarkable. NEUROLOGIC: The patient is neurologically alert, awake and appropriate. No focal neurologic deficit. General: Alert, Oriented X3, Cooperative, No acute distress Heart: Regular rate, Normal S1 Lungs: Clear Abdomen: Normal bowel sounds, Soft, No tenderness, No hepatosplenomegaly Extremities: No cyanosis Assessment and Plan Assessmemt and Plan Problems Medical Problems: (1) Dizziness Status: Acute (2) Head pain Status: Acute Comment Review of Relevant I have reviewed the following items analilia (where applicable) has been applied. Labs Laboratory Tests Test 04/30/19 03:40 White Blood Count 6.5 x10^3/uL (4.0-11.0) Red Blood Count 5.20 x10^6/uL (4.30-5.70) Hemoglobin 14.3 g/dL (13.0-17.5) Hematocrit 42.1 % (39.0-53.0) Mean Corpuscular Volume 81 fL (79-100) Mean Corpuscular Hemoglobin 27 pg (25-35) Mean Corpuscular Hemoglobin Concent 34 g/dL (31-37) Red Cell Distribution Width 13.7 % (11.5-14.5) Platelet Count 181 x10^3/uL (140-400) Neutrophils (%) (Auto) 62 % (31-73) Lymphocytes (%) (Auto) 25 % (24-48) Monocytes (%) (Auto) 7 % (0-9) Eosinophils (%) (Auto) 5 % (0-3) Basophils (%) (Auto) 0 % (0-3) Neutrophils # (Auto) 4.1 x10^3/uL (1.8-7.7) Lymphocytes # (Auto) 1.7 x10^3/uL (1.0-4.8) Monocytes # (Auto) 0.5 x10^3/uL (0.0-1.1) Eosinophils # (Auto) 0.3 x10^3/uL (0.0-0.7) Basophils # (Auto) 0.0 x10^3/uL (0.0-0.2) Sodium Level 139 mmol/L (136-145) Potassium Level 3.5 mmol/L (3.5-5.1) Chloride Level 105 mmol/L (98-107) Carbon Dioxide Level 24 mmol/L (21-32) Anion Gap 10 (6-14) Blood Urea Nitrogen 11 mg/dL (8-26) Creatinine 0.8 mg/dL (0.7-1.3) Estimated GFR (Cockcroft-Gault) 111.3 BUN/Creatinine Ratio 14 (6-20) Glucose Level 91 mg/dL (70-99) Calcium Level 7.9 mg/dL (8.5-10.1) Total Bilirubin 0.5 mg/dL (0.2-1.0) Aspartate Amino Transf (AST/SGOT) 14 U/L (15-37) Alanine Aminotransferase (ALT/SGPT) 14 U/L (16-63) Alkaline Phosphatase 85 U/L (46-116) Total Protein 7.0 g/dL (6.4-8.2) Albumin 2.8 g/dL (3.4-5.0) Albumin/Globulin Ratio 0.7 (1.0-1.7) Microbiology 04/30/19 - Final, Complete 04/28/19 Blood Culture - Preliminary, Resulted NO GROWTH AFTER 2 DAYS Medications Current Medications Prochlorperazine Edisylate (Compazine) 10 mg 1X ONCE IV Last administered on 04/28/19 17:00; Start 04/28/19 at 17:00; Stop 04/28/19 at 17:01; Status DC Diphenhydramine HCl (Benadryl) 25 mg 1X ONCE IVP Last administered on 04/28/19 17:24; Start 04/28/19 at 17:00; Stop 04/28/19 at 17:01; Status DC Sodium Chloride 1,000 ml @ 1,000 mls/hr 1X ONCE IV Last administered on at 17:23; Start 04/28/19 at 17:00; Stop 04/28/19 at 17:59; Status DC Potassium Chloride (Klor-Con) 20 meq 1X ONCE PO Last administered on 04/28/19 18:47; Start 04/28/19 at 18:00; Stop 04/28/19 at 18:01; Status DC Ketorolac Tromethamine (Toradol 30mg Vial) 30 mg 1X ONCE IVP Last administered on 04/28/19at 18:46; Start 04/28/19 at 18:00; Stop 04/28/19 at 18:01; Status DC Azithromycin 250 ml @ 250 mls/hr 1X ONCE IV Last administered on 04/28/19at 18:47; Start 04/28/19 at 18:30; Stop 04/28/19 at 19:29; Status DC Ceftriaxone Sodium (Rocephin) 1 gm 1X ONCE IVP Last administered on 04/28/19at 18:47; Start 04/28/19 at 18:30; Stop 04/28/19 at 18:31; Status DC Iohexol (Omnipaque 350 Mg/ml) 90 ml 1X ONCE IV Last administered on 04/28/19 19:30; Start 04/28/19 at 18:45; Stop 04/28/19 at 18:46; Status DC Info (CONTRAST GIVEN -- Rx MONITORING) 1 each PRN DAILY PRN MC SEE COMMENTS; Start 04/28/19 at 18:45; Stop 04/29/19 at 09:29; Status DC Ondansetron HCl (Zofran) 4 mg PRN Q8HRS PRN IV NAUSEA/VOMITING; Start 04/28/19 at 19:30; Stop 04/29/19 at 13:28; Status DC Fentanyl Citrate (Fentanyl 2ml Vial) 50 mcg PRN Q1HR PRN IV PAIN; Start 04/28/19 at 19:30; Stop 04/29/19 at 19:29; Status DC Acetaminophen (Tylenol) 650 mg PRN Q4HRS PRN PO FEVER; Start 04/28/19 at 19:30; Stop 04/29/19 at 19:29; Status DC Magnesium Sulfate 100 ml @ 25 mls/hr 1X ONCE IV Last administered on 04/29/19at 08:59; Start 04/29/19 at 09:00; Stop 04/29/19 at 12:59; Status DC Potassium Chloride (Klor-Con) 40 meq 1X ONCE PO Last administered on 04/29/19at 08:56; Start 04/29/19 at 09:00; Stop 04/29/19 at 09:01; Status DC Iohexol (Omnipaque 300 Mg/ml) 75 ml 1X ONCE IV Last administered on 04/29/19at 09:30; Start 04/29/19 at 09:30; Stop 04/29/19 at 09:31; Status DC Iohexol (Omnipaque 240 Mg/ml) 30 ml 1X ONCE PO ; Start 04/29/19 at 09:30; Stop 04/29/19 at 09:31; Status DC Info (CONTRAST GIVEN -- Rx MONITORING) 1 each PRN DAILY PRN MC SEE COMMENTS; Start 04/29/19 at 09:30; Stop 05/01/19 at 09:29 Albuterol Sulfate (Ventolin Neb Soln) 2.5 mg PRN 1X PRN NEB SHORTNESS OF BREATH Last administered on 04/30/19at 08:59; Start 04/29/19 at 11:45; Stop 04/30/19 at 11:44; Status DC Lidocaine HCl (Lidocaine 2% Viscous) 100 ml PRN 1X PRN MM MOUTH PAIN Last administered on 04/30/19at 09:00; Start 04/29/19 at 11:45; Stop 04/30/19 at 11:44; Status DC Lidocaine HCl (Lidocaine 1% 20ml Vial) 20 ml PRN 1X PRN INJ SEE COMMENTS Last administered on 04/30/19at 09:00; Start 04/29/19 at 11:45; Stop 04/30/19 at 11:44; Status DC Epinephrine HCl (Adrenalin) 1 mg PRN 1X PRN INJ SEE COMMENTS; Start 04/29/19 at 11:45; Stop 04/30/19 at 11:44; Status DC Lidocaine HCl 50 ml PRN 1X PRN MM SEE COMMENTS Last administered on 04/30/19at 09:00; Start 04/29/19 at 11:45; Stop 04/30/19 at 11:44; Status DC Ringer's Solution 1,000 ml @ 50 mls/hr Q20H IV Last administered on 04/30/19at 08:00; Start 04/30/19 at 07:00; Stop 04/30/19 at 18:59; Status DC Sodium Chloride (Normal Saline Flush) 3 ml QSHIFT PRN IV AFTER MEDS AND BLOOD DRAWS; Start 04/29/19 at 13:30 Sodium Chloride 1,000 ml @ 100 mls/hr Q10H IV Last administered on 04/30/19at 21:30; Start 04/29/19 at 13:20 Ondansetron HCl (Zofran) 4 mg PRN Q4HRS PRN IV NAUSEA/VOMITING; Start 04/29/19 at 13:30 Zolpidem Tartrate (Ambien) 5 mg PRN QHS PRN PO INSOMNIA; Start 04/29/19 at 13:30 Acetaminophen (Tylenol) 650 mg PRN Q4HRS PRN PO TEMP OVER 100.4F OR MILD PAIN; Start 04/29/19 at 13:30 Al Hydroxide/Mg Hydroxide (Mylanta Plus Xs) 30 ml PRN DAILY PRN PO HEARTBURN / GAS; Start 04/29/19 at 13:30 Clonidine HCl (Catapres) 0.1 mg PRN Q6HRS PRN PO SBP>160 OR DBP>90; Start 04/29/19 at 13:30 Docusate Sodium (Colace) 100 mg PRN BID PRN PO HARD STOOLS; Start 04/29/19 at 13:30 Albuterol/ Ipratropium (Duoneb) 3 ml Q4H NEB Last administered on 04/29/19at 19:59; Start 04/29/19 at 13:30; Stop 04/29/19 at 20:06; Status DC Guaifenesin (Robitussin) 200 mg PRN Q4HRS PRN PO COUGH; Start 04/29/19 at 13:30 Lorazepam (Ativan) 0.5 mg PRN Q4HRS PRN PO ANXIETY / AGITATION; Start 04/29/19 at 13:30 Enoxaparin Sodium (Lovenox 40mg Syringe) 40 mg DAILY SQ Last administered on 04/30/19at 09:00; Start 04/30/19 at 09:00 Albuterol/ Ipratropium (Duoneb) 3 ml QID NEB Last administered on 05/01/19at 07:50; Start 04/30/19 at 09:00 Epinephrine HCl (Adrenalin) 1 mg STK-MED ONCE .ROUTE ; Start 04/30/19 at 07:15; Stop 04/30/19 at 07:15; Status DC Lidocaine HCl (Lidocaine 1% 20ml Vial) 20 ml STK-MED ONCE .ROUTE ; Start 04/30/19 at 07:15; Stop 04/30/19 at 07:15; Status DC Lidocaine HCl (Lidocaine 2% Viscous) 100 ml STK-MED ONCE .ROUTE ; Start 04/30/19 at 07:15; Stop 04/30/19 at 07:15; Status DC Lidocaine HCl 50 ml STK-MED ONCE .ROUTE ; Start 04/30/19 at 07:15; Stop 04/30/19 at 07:15; Status DC Propofol (Diprivan) 400 mg STK-MED ONCE IV ; Start 04/30/19 at 12:00; Stop 04/30/19 at 13:32; Status DC Azithromycin 500 mg/Sodium Chloride 250 ml @ 250 mls/hr Q24H IV Last administered on 04/30/19at 16:00; Start 04/30/19 at 16:00 Ceftriaxone Sodium (Rocephin) 1 gm Q24H IVP Last administered on 04/30/19at 16:00; Start 04/30/19 at 16:00 Vitals/I & O Vital Sign - Last 24 Hours 04/30/19 04/30/19 04/30/19 04/30/19 08:09 08:26 09:10 09:45 Temp 97.9 98.2 97.9 98.2 Pulse 68 108 Resp 20 16 B/P (MAP) 113/69 Pulse Ox 99 96 99 O2 Delivery Room Air Room Air Simple Mask O2 Flow Rate 6 04/30/19 04/30/19 04/30/19 04/30/19 10:00 11:00 12:04 15:00 Temp 98.3 98.5 98.3 98.5 Pulse 115 81 74 Resp 16 17 18 B/P (MAP) 136/92 137/87 (104) 139/91 (107) Pulse Ox 95 98 98 O2 Delivery Room Air Room Air Room Air Room Air 04/30/19 04/30/19 04/30/19 04/30/19 15:38 20:00 20:00 21:15 Temp 98.5 98.5 Pulse 76 Resp 16 B/P (MAP) 147/85 (105) Pulse Ox 97 98 O2 Delivery Room Air Room Air Room Air Room Air 04/30/19 05/01/19 23:49 03:00 Temp 98.3 98.7 98.3 98.7 Pulse 61 84 Resp 16 16 B/P (MAP) 144/92 (109) 141/95 (110) Pulse Ox 96 97 O2 Delivery Room Air Room Air Intake and Output 04/30/19 04/30/19 05/01/19 15:00 23:00 07:00 Intake Total 500 ml 900 ml 500 ml Output Total 1000 ml Balance 500 ml 900 ml -500 ml NASRA GAN MD May 01, 2019 07:54
[2019-05-01] MEDS: ENOXAPARIN 40 MG/0.4 ML SYRINGE. SQ SCH (09:00)
[2019-05-01] MEDS: IV NORMAL SALINE 1000ML BAG 1,000 ML IV SCH ×2 (09:00→21:25)
--- NOTE | 2019-05-01 10:42 | PDOC ---
PULMONARY PROGRESS NOTES Subjective no soa no fever Vitals Vital Signs Date Time Temp Pulse Resp B/P (MAP) Pulse Ox O2 Delivery O2 Flow Rate FiO2 05/01/19 07:54 97 Room Air 05/01/19 07:50 98.1 99 18 135/82 (99) 98.1 04/30/19 09:45 6 General: Alert, No acute distress Lungs: Clear Cardiovascular: S1 Abdomen: Soft Neuro Exam: Alert Extremities: No Edema Skin: Warm Labs Laboratory Tests Test 04/30/19 03:40 White Blood Count 6.5 x10^3/uL (4.0-11.0) Red Blood Count 5.20 x10^6/uL (4.30-5.70) Hemoglobin 14.3 g/dL (13.0-17.5) Hematocrit 42.1 % (39.0-53.0) Mean Corpuscular Volume 81 fL (79-100) Mean Corpuscular Hemoglobin 27 pg (25-35) Mean Corpuscular Hemoglobin Concent 34 g/dL (31-37) Red Cell Distribution Width 13.7 % (11.5-14.5) Platelet Count 181 x10^3/uL (140-400) Neutrophils (%) (Auto) 62 % (31-73) Lymphocytes (%) (Auto) 25 % (24-48) Monocytes (%) (Auto) 7 % (0-9) Eosinophils (%) (Auto) 5 % (0-3) Basophils (%) (Auto) 0 % (0-3) Neutrophils # (Auto) 4.1 x10^3/uL (1.8-7.7) Lymphocytes # (Auto) 1.7 x10^3/uL (1.0-4.8) Monocytes # (Auto) 0.5 x10^3/uL (0.0-1.1) Eosinophils # (Auto) 0.3 x10^3/uL (0.0-0.7) Basophils # (Auto) 0.0 x10^3/uL (0.0-0.2) Sodium Level 139 mmol/L (136-145) Potassium Level 3.5 mmol/L (3.5-5.1) Chloride Level 105 mmol/L (98-107) Carbon Dioxide Level 24 mmol/L (21-32) Anion Gap 10 (6-14) Blood Urea Nitrogen 11 mg/dL (8-26) Creatinine 0.8 mg/dL (0.7-1.3) Estimated GFR (Cockcroft-Gault) 111.3 BUN/Creatinine Ratio 14 (6-20) Glucose Level 91 mg/dL (70-99) Calcium Level 7.9 mg/dL (8.5-10.1) Total Bilirubin 0.5 mg/dL (0.2-1.0) Aspartate Amino Transf (AST/SGOT) 14 U/L (15-37) Alanine Aminotransferase (ALT/SGPT) 14 U/L (16-63) Alkaline Phosphatase 85 U/L (46-116) Total Protein 7.0 g/dL (6.4-8.2) Albumin 2.8 g/dL (3.4-5.0) Albumin/Globulin Ratio 0.7 (1.0-1.7) Impression . IMPRESSION: 1. Multiple right upper lobe nodules, largest of them is 2.2 cm in size and is cavitary. differential diagnosis would certainly include infectious etiology such as tuberculosis ( Although I doubt it in the absence of any fevers), cavitary pneumonia, ? melioidosis etc.; however, noninfectious etiologies would also include pulmonary vasculitis/Tiffanie's granulomatosis etc 2. s/p bronchoscopy , follow cultures and I would recommend keep him in respiratory isolation till AFB smear neg. Plan . 1. Continue respiratory isolation till AFB smear negative 2. s/p bronchoscopy. P results 3. Would recommend connective tissue workup as an outpatient as it is not permitted while in the hospital if diagnosis is still not established. 4. CT abdomen and pelvis with renal cysts. ? polycystic kidney disease. consider renal consult . will leave up to PCP 5. Continue broad-spectrum antibiotics per ID 6. repeat ct chest Sunday. If no improvement, consider ct guided bx of cavitary nodule 7. Discussed with RN / GENEVIEVE Nolen MD May 01, 2019 10:42
--- NOTE | 2019-05-01 11:19 | PDOC2 ---
CONSULT Date of Consult Date of Consult DATE: 05/01/19 TIME: 11:18 Reason for Consult Reason for Consult: Possible polycystic kidney disease Referring Physician Referring Physician: Tobias Source Source: Chart review History of Present Illness Reason for Visit: Patient is a 34-year-old gentleman who is off [place] descent is a poor historian and is not aware of his health issues. I reviewed his electronic records. It appears to be a suspicion for ongoing pneumonia and TB's been ruled out. He initially presented from urgent care with EKG changes suggestive of pericarditis. He also had headache. He received Toradol in the ER. Abdominal CT was done which showed : 1. Numerous bilateral hypodense renal lesions are seen, the larger lesions represent cysts, the smaller lesions are too small to accurately characterize. Findings may be seen with polycystic kidney disease. 2. No abdominal or pelvic lymphadenopathy. In this setting we were asked to see him for possible polycystic kidney disease and patient is not aware of family history of polycystic kidney disease Past Medical History Past Medical History Patient denies any known health problems other than chronic low back pain Family History Family History: Hypertension Social History No ALCOHOL: none Drugs: None Current Problem List Problem List Problems Medical Problems: (1) Dizziness Status: Acute (2) Head pain Status: Acute Current Medications Current Medications Current Medications Prochlorperazine Edisylate (Compazine) 10 mg 1X ONCE IV Last administered on 04/28/19at 17:00; Start 04/28/19 at 17:00; Stop 04/28/19 at 17:01; Status DC Diphenhydramine HCl (Benadryl) 25 mg 1X ONCE IVP Last administered on 04/28/19at 17:24; Start 04/28/19 at 17:00; Stop 04/28/19 at 17:01; Status DC Sodium Chloride 1,000 ml @ 1,000 mls/hr 1X ONCE IV Last administered on 04/28/19at 17:23; Start 04/28/19 at 17:00; Stop 04/28/19 at 17:59; Status DC Potassium Chloride (Klor-Con) 20 meq 1X ONCE PO Last administered on 04/28/19at 18:47; Start 04/28/19 at 18:00; Stop 04/28/19 at 18:01; Status DC Ketorolac Tromethamine (Toradol 30mg Vial) 30 mg 1X ONCE IVP Last administered on 04/28/19at 18:46; Start 04/28/19 at 18:00; Stop 04/28/19 at 18:01; Status DC Azithromycin 250 ml @ 250 mls/hr 1X ONCE IV Last administered on 04/28/19at 18:47; Start 04/28/19 at 18:30; Stop 04/28/19 at 19:29; Status DC Ceftriaxone Sodium (Rocephin) 1 gm 1X ONCE IVP Last administered on 04/28/19at 18:47; Start 04/28/19 at 18:30; Stop 04/28/19 at 18:31; Status DC Iohexol (Omnipaque 350 Mg/ml) 90 ml 1X ONCE IV Last administered on 04/28/19at 19:30; Start 04/28/19 at 18:45; Stop 04/28/19 at 18:46; Status DC Info (CONTRAST GIVEN -- Rx MONITORING) 1 each PRN DAILY PRN MC SEE COMMENTS; Start 04/28/19 at 18:45; Stop 04/29/19 at 09:29; Status DC Ondansetron HCl (Zofran) 4 mg PRN Q8HRS PRN IV NAUSEA/VOMITING; Start 04/28/19 at 19:30; Stop 04/29/19 at 13:28; Status DC Fentanyl Citrate (Fentanyl 2ml Vial) 50 mcg PRN Q1HR PRN IV PAIN; Start 04/28/19 at 19:30; Stop 04/29/19 at 19:29; Status DC Acetaminophen (Tylenol) 650 mg PRN Q4HRS PRN PO FEVER; Start 04/28/19 at 19:30; Stop 04/29/19 at 19:29; Status DC Magnesium Sulfate 100 ml @ 25 mls/hr 1X ONCE IV Last administered on 04/29/19at 08:59; Start 04/29/19 at 09:00; Stop 04/29/19 at 12:59; Status DC Potassium Chloride (Klor-Con) 40 meq 1X ONCE PO Last administered on 04/29/19at 08:56; Start 04/29/19 at 09:00; Stop 04/29/19 at 09:01; Status DC Iohexol (Omnipaque 300 Mg/ml) 75 ml 1X ONCE IV Last administered on 04/29/19at 09:30; Start 04/29/19 at 09:30; Stop 04/29/19 at 09:31; Status DC Iohexol (Omnipaque 240 Mg/ml) 30 ml 1X ONCE PO ; Start 04/29/19 at 09:30; Stop 04/29/19 at 09:31; Status DC Info (CONTRAST GIVEN -- Rx MONITORING) 1 each PRN DAILY PRN MC SEE COMMENTS; Start 04/29/19 at 09:30; Stop 05/01/19 at 09:29; Status DC Albuterol Sulfate (Ventolin Neb Soln) 2.5 mg PRN 1X PRN NEB SHORTNESS OF BREATH Last administered on 04/30/19at 08:59; Start 04/29/19 at 11:45; Stop 04/30/19 at 11:44; Status DC Lidocaine HCl (Lidocaine 2% Viscous) 100 ml PRN 1X PRN MM MOUTH PAIN Last administered on 04/30/19at 09:00; Start 04/29/19 at 11:45; Stop 04/30/19 at 11:44; Status DC Lidocaine HCl (Lidocaine 1% 20ml Vial) 20 ml PRN 1X PRN INJ SEE COMMENTS Last administered on 04/30/19at 09:00; Start 04/29/19 at 11:45; Stop 04/30/19 at 11:44; Status DC Epinephrine HCl (Adrenalin) 1 mg PRN 1X PRN INJ SEE COMMENTS; Start 04/29/19 at 11:45; Stop 04/30/19 at 11:44; Status DC Lidocaine HCl 50 ml PRN 1X PRN MM SEE COMMENTS Last administered on 04/30/19at 09:00; Start 04/29/19 at 11:45; Stop 04/30/19 at 11:44; Status DC Ringer's Solution 1,000 ml @ 50 mls/hr Q20H IV Last administered on 04/30/19at 08:00; Start 04/30/19 at 07:00; Stop 04/30/19 at 18:59; Status DC Sodium Chloride (Normal Saline Flush) 3 ml QSHIFT PRN IV AFTER MEDS AND BLOOD DRAWS; Start 04/29/19 at 13:30 Sodium Chloride 1,000 ml @ 100 mls/hr Q10H IV Last administered on 04/30/19at 21:30; Start 04/29/19 at 13:20 Ondansetron HCl (Zofran) 4 mg PRN Q4HRS PRN IV NAUSEA/VOMITING; Start 04/29/19 at 13:30 Zolpidem Tartrate (Ambien) 5 mg PRN QHS PRN PO INSOMNIA; Start 04/29/19 at 13:30 Acetaminophen (Tylenol) 650 mg PRN Q4HRS PRN PO TEMP OVER 100.4F OR MILD PAIN; Start 04/29/19 at 13:30 Al Hydroxide/Mg Hydroxide (Mylanta Plus Xs) 30 ml PRN DAILY PRN PO HEARTBURN / GAS; Start 04/29/19 at 13:30 Clonidine HCl (Catapres) 0.1 mg PRN Q6HRS PRN PO SBP>160 OR DBP>90; Start 04/29/19 at 13:30 Docusate Sodium (Colace) 100 mg PRN BID PRN PO HARD STOOLS; Start 04/29/19 at 13:30 Albuterol/ Ipratropium (Duoneb) 3 ml Q4H NEB Last administered on 04/29/19at 19:59; Start 04/29/19 at 13:30; Stop 04/29/19 at 20:06; Status DC Guaifenesin (Robitussin) 200 mg PRN Q4HRS PRN PO COUGH; Start 04/29/19 at 13:30 Lorazepam (Ativan) 0.5 mg PRN Q4HRS PRN PO ANXIETY / AGITATION; Start 04/29/19 at 13:30 Enoxaparin Sodium (Lovenox 40mg Syringe) 40 mg DAILY SQ Last administered on 04/30/19at 09:00; Start 04/30/19 at 09:00 Albuterol/ Ipratropium (Duoneb) 3 ml QID NEB Last administered on 05/01/19at 07:50; Start 04/30/19 at 09:00 Epinephrine HCl (Adrenalin) 1 mg STK-MED ONCE .ROUTE ; Start 04/30/19 at 07:15; Stop 04/30/19 at 07:15; Status DC Lidocaine HCl (Lidocaine 1% 20ml Vial) 20 ml STK-MED ONCE .ROUTE ; Start 04/30/19 at 07:15; Stop 04/30/19 at 07:15; Status DC Lidocaine HCl (Lidocaine 2% Viscous) 100 ml STK-MED ONCE .ROUTE ; Start 04/30/19 at 07:15; Stop 04/30/19 at 07:15; Status DC Lidocaine HCl 50 ml STK-MED ONCE .ROUTE ; Start 04/30/19 at 07:15; Stop 04/30/19 at 07:15; Status DC Propofol (Diprivan) 400 mg STK-MED ONCE IV ; Start 04/30/19 at 12:00; Stop 04/30/19 at 13:32; Status DC Azithromycin 500 mg/Sodium Chloride 250 ml @ 250 mls/hr Q24H IV Last administered on 04/30/19at 16:00; Start 04/30/19 at 16:00 Ceftriaxone Sodium (Rocephin) 1 gm Q24H IVP Last administered on 04/30/19at 16:00; Start 04/30/19 at 16:00 Lactobacillus Rhamnosus (Culturelle) 1 cap BID PO ; Start 05/01/19 at 10:00 Allergies Allergies: Coded Allergies: No Known Drug Allergies (Unverified , 04/30/19) ROS Review of System Negative review of systems Physical Exam Physical Exam GEN: Awake, Oriented x ?, In no distress EYES: Vision Unchanged, Conjunctiva Normal EN: No EN Drainage, Mucous Membranes moist NECK: no JVD, no JVP, Supple, no Thyromegaly CVS: S1S2, no Murmur, No Gallop, No Rub,no Edema RESP: no Rales, no Rhonchi,no Acc. Muscle Use GI: BS + ve, NO Bruit, Non Tender, Non Distended : no CVA tenderness, no Suprapubic Tenderness Vital Signs Vital Signs Date Time Temp Pulse Resp B/P (MAP) Pulse Ox O2 Delivery O2 Flow Rate FiO2 05/01/19 08:00 Room Air 05/01/19 07:54 97 05/01/19 07:50 98.1 99 18 135/82 (99) 98.1 04/30/19 09:45 6 Assessment & Plan CT abdomen and pelvis appearance of possible polycystic kidney disease. Patient is not aware of family history of the same. No intervention required at this time. Renal function is good. He will need serial imaging to confirm these findings, monitor size of kidneys and will benefit from outpatient follow-up with us. Please call with questions concerns Labs Labs Laboratory Tests Test 04/30/19 03:40 White Blood Count 6.5 x10^3/uL (4.0-11.0) Red Blood Count 5.20 x10^6/uL (4.30-5.70) Hemoglobin 14.3 g/dL (13.0-17.5) Hematocrit 42.1 % (39.0-53.0) Mean Corpuscular Volume 81 fL (79-100) Mean Corpuscular Hemoglobin 27 pg (25-35) Mean Corpuscular Hemoglobin Concent 34 g/dL (31-37) Red Cell Distribution Width 13.7 % (11.5-14.5) Platelet Count 181 x10^3/uL (140-400) Neutrophils (%) (Auto) 62 % (31-73) Lymphocytes (%) (Auto) 25 % (24-48) Monocytes (%) (Auto) 7 % (0-9) Eosinophils (%) (Auto) 5 % (0-3) Basophils (%) (Auto) 0 % (0-3) Neutrophils # (Auto) 4.1 x10^3/uL (1.8-7.7) Lymphocytes # (Auto) 1.7 x10^3/uL (1.0-4.8) Monocytes # (Auto) 0.5 x10^3/uL (0.0-1.1) Eosinophils # (Auto) 0.3 x10^3/uL (0.0-0.7) Basophils # (Auto) 0.0 x10^3/uL (0.0-0.2) Sodium Level 139 mmol/L (136-145) Potassium Level 3.5 mmol/L (3.5-5.1) Chloride Level 105 mmol/L (98-107) Carbon Dioxide Level 24 mmol/L (21-32) Anion Gap 10 (6-14) Blood Urea Nitrogen 11 mg/dL (8-26) Creatinine 0.8 mg/dL (0.7-1.3) Estimated GFR (Cockcroft-Gault) 111.3 BUN/Creatinine Ratio 14 (6-20) Glucose Level 91 mg/dL (70-99) Calcium Level 7.9 mg/dL (8.5-10.1) Total Bilirubin 0.5 mg/dL (0.2-1.0) Aspartate Amino Transf (AST/SGOT) 14 U/L (15-37) Alanine Aminotransferase (ALT/SGPT) 14 U/L (16-63) Alkaline Phosphatase 85 U/L (46-116) Total Protein 7.0 g/dL (6.4-8.2) Albumin 2.8 g/dL (3.4-5.0) Albumin/Globulin Ratio 0.7 (1.0-1.7) Review All relevant outside records, renal labs, imaging studies, telemetry/EKG's were reviewed. Images Images IMPRESSION: 1. Numerous bilateral hypodense renal lesions are seen, the larger lesions represent cysts, the smaller lesions are too small to accurately characterize. Findings may be seen with polycystic kidney disease. 2. No abdominal or pelvic lymphadenopathy. CARRIE EDUARDO MD May 01, 2019 11:18
[2019-05-01 11:40] VITALS: BP 143/89
[2019-05-01] MEDS: LACTOBACILLUS RHAMNOSUS GG 1 CAPSULE. PO SCH ×2 (15:00→21:25)
[2019-05-01 15:13] VITALS: BP 138/93
[2019-05-01] MEDS: AZITHROMYCIN 500 MG in IV NORMAL SALINE 250ML 250 ML IV SCH (16:30)
[2019-05-01] MEDS: cefTRIAXone IV Push 1 GM VIAL. IVP SCH (16:30)
[2019-05-01 19:45] VITALS: BP 143/94
[2019-05-01 23:00] VITALS: BP 147/93
--- NOTE | 2019-05-01 23:03 | NUR ---
Patient transferred to room 402. Report given to MIGUELINA Avelar. All patient's belongings with patient at time to transfer. No complaints from patient at this time.
--- NOTE | 2019-05-01 23:07 | NUR ---
Pt. arrived on unit at 2245 from 6S. Pt. is A&O, on room air and is pleasant. Does not complain of anything.
[2019-05-02] MEDS: ACETAMINOPHEN 325 MG TABLET. PO PRN ×3 (00:26→20:57)
[2019-05-02] MEDS: IV NORMAL SALINE 1000ML BAG 1,000 ML IV SCH ×3 (01:20→14:58)
[2019-05-02 03:00] VITALS: BP 128/78
--- NOTE | 2019-05-02 05:03 | NUR ---
Blue phone is being used for better patient care.
[2019-05-02 07:15] VITALS: BP 131/84
--- NOTE | 2019-05-02 07:36 | PDOC ---
PROGRESS NOTES Chief Complaint Chief Complaint Assessment/Plan 1. pulmonary nodules clustered in the right upper lobe one of which is cavitary. 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 severe protein-caloric malnutrition 3. POSSIBLE POLYCYSTIC KIDNEY DISEASE PLAN ADMIT ID CONSULT PULM CONSULT TB TESTING BRONCHOSCOPY 04/30 CT CHESt/ ABD/ PELVIS dvt prophylaxis iv rocephin, zithromax NEPHROLOGY consult 28 MIN PT EXAM, CHART REVIEW, > 50% OF TIME spent with pt exam, chart review, pt care coordination History of Present Illness History of Present Illness Mr Belcher is a 34-year-old male from [facility] who does not speak [place]. It was difficult to obtain much history from the patient and I was able to get hold of his rn medical inpatient services who can speak a little bit [place]. According to him, the patient was brought into the hospital as he was complaining of dizziness. He does not complain of much cough, fever or night sweats. He does not know whether he had a PPD done when he arrived in [place] 3 years ago. There are no obvious TB exposures. The patient underwent chest x-ray, which was abnormal with infiltrate in the right upper lobe. As a result, he underwent CTA chest. He had numerous nodules in the right upper lobe, largest of them is in the right lung apex, which is cavitary in about 2.2 cm in size. The patient was started on antibiotic Rocephin along with Zithromax. He underwent bronchoscopy 04/30/19 with acid fast staining, being seen by pulmonology and ID. He states he has been told he has kidney, liver, and lung disease previously. Feeling somewhat better today. Still with cough and headache as well as abdominal pain. Vitals Vitals Vital Signs Date Time Temp Pulse Resp B/P (MAP) Pulse Ox O2 Delivery O2 Flow Rate FiO2 05/02/19 03:00 98.3 72 18 128/78 (95) 96 Room Air 98.3 Physical Exam Physical Exam GENERAL: Alert and oriented gentleman, not in any distress. VITAL SIGNS: Stable, afebrile. HEENT: NAD. NECK: Supple, no JVP, no lymphadenopathy. LUNGS: Clear. HEART: S1, S2 regular. ABDOMEN: Benign. EXTREMITIES: No edema, cyanosis. SKIN: Unremarkable. NEUROLOGIC: The patient is neurologically alert, awake and appropriate. No focal neurologic deficit. General: Alert, Oriented X3, Cooperative, No acute distress Heart: Regular rate, Normal S1 Lungs: Clear Abdomen: Normal bowel sounds, Soft, No tenderness, No hepatosplenomegaly Extremities: No cyanosis Assessment and Plan Assessmemt and Plan Problems Medical Problems: (1) Dizziness Status: Acute (2) Head pain Status: Acute Comment Review of Relevant I have reviewed the following items analilia (where applicable) has been applied. Labs Microbiology 04/30/19 - Final, Complete 04/28/19 Blood Culture - Preliminary, Resulted NO GROWTH AFTER 3 DAYS Medications Current Medications Prochlorperazine Edisylate (Compazine) 10 mg 1X ONCE IV Last administered on 04/28/19at 17:00; Start 04/28/19 at 17:00; Stop 04/28/19 at 17:01; Status DC Diphenhydramine HCl (Benadryl) 25 mg 1X ONCE IVP Last administered on 04/28/19at 17:24; Start 04/28/19 at 17:00; Stop 04/28/19 at 17:01; Status DC Sodium Chloride 1,000 ml @ 1,000 mls/hr 1X ONCE IV Last administered on 04/28/19at 17:23; Start 04/28/19 at 17:00; Stop 04/28/19 at 17:59; Status DC Potassium Chloride (Klor-Con) 20 meq 1X ONCE PO Last administered on 04/28/19at 18:47; Start 04/28/19 at 18:00; Stop 04/28/19 at 18:01; Status DC Ketorolac Tromethamine (Toradol 30mg Vial) 30 mg 1X ONCE IVP Last administered on 04/28/19at 18:46; Start 04/28/19 at 18:00; Stop 04/28/19 at 18:01; Status DC Azithromycin 250 ml @ 250 mls/hr 1X ONCE IV Last administered on 04/28/19at 18:47; Start 04/28/19 at 18:30; Stop 04/28/19 at 19:29; Status DC Ceftriaxone Sodium (Rocephin) 1 gm 1X ONCE IVP Last administered on 04/28/19at 18:47; Start 04/28/19 at 18:30; Stop 04/28/19 at 18:31; Status DC Iohexol (Omnipaque 350 Mg/ml) 90 ml 1X ONCE IV Last administered on 04/28/19at 19:30; Start 04/28/19 at 18:45; Stop 04/28/19 at 18:46; Status DC Info (CONTRAST GIVEN -- Rx MONITORING) 1 each PRN DAILY PRN MC SEE COMMENTS; Start 04/28/19 at 18:45; Stop 04/29/19 at 09:29; Status DC Ondansetron HCl (Zofran) 4 mg PRN Q8HRS PRN IV NAUSEA/VOMITING; Start 04/28/19 at 19:30; Stop 04/29/19 at 13:28; Status DC Fentanyl Citrate (Fentanyl 2ml Vial) 50 mcg PRN Q1HR PRN IV PAIN; Start 04/28/19 at 19:30; Stop 04/29/19 at 19:29; Status DC Acetaminophen (Tylenol) 650 mg PRN Q4HRS PRN PO FEVER; Start 04/28/19 at 19:30; Stop 04/29/19 at 19:29; Status DC Magnesium Sulfate 100 ml @ 25 mls/hr 1X ONCE IV Last administered on 04/29/19at 08:59; Start 04/29/19 at 09:00; Stop 04/29/19 at 12:59; Status DC Potassium Chloride (Klor-Con) 40 meq 1X ONCE PO Last administered on 04/29/19at 08:56; Start 04/29/19 at 09:00; Stop 04/29/19 at 09:01; Status DC Iohexol (Omnipaque 300 Mg/ml) 75 ml 1X ONCE IV Last administered on 04/29/19at 09:30; Start 04/29/19 at 09:30; Stop 04/29/19 at 09:31; Status DC Iohexol (Omnipaque 240 Mg/ml) 30 ml 1X ONCE PO ; Start 04/29/19 at 09:30; Stop 04/29/19 at 09:31; Status DC Info (CONTRAST GIVEN -- Rx MONITORING) 1 each PRN DAILY PRN MC SEE COMMENTS; Start 04/29/19 at 09:30; Stop 05/01/19 at 09:29; Status DC Albuterol Sulfate (Ventolin Neb Soln) 2.5 mg PRN 1X PRN NEB SHORTNESS OF BREATH Last administered on 04/30/19at 08:59; Start 04/29/19 at 11:45; Stop 04/30/19 at 11:44; Status DC Lidocaine HCl (Lidocaine 2% Viscous) 100 ml PRN 1X PRN MM MOUTH PAIN Last administered on 04/30/19at 09:00; Start 04/29/19 at 11:45; Stop 04/30/19 at 11 :44; Status DC Lidocaine HCl (Lidocaine 1% 20ml Vial) 20 ml PRN 1X PRN INJ SEE COMMENTS Last administered on 04/30/19at 09:00; Start 04/29/19 at 11:45; Stop 04/30/19 at 11:44; Status DC Epinephrine HCl (Adrenalin) 1 mg PRN 1X PRN INJ SEE COMMENTS; Start 04/29/19 at 11:45; Stop 04/30/19 at 11:44; Status DC Lidocaine HCl 50 ml PRN 1X PRN MM SEE COMMENTS Last administered on 04/30/19at 09:00; Start 04/29/19 at 11:45; Stop 04/30/19 at 11:44; Status DC Ringer's Solution 1,000 ml @ 50 mls/hr Q20H IV Last administered on 04/30/19at 08:00; Start 04/30/19 at 07:00; Stop 04/30/19 at 18:59; Status DC Sodium Chloride (Normal Saline Flush) 3 ml QSHIFT PRN IV AFTER MEDS AND BLOOD DRAWS; Start 04/29/19 at 13:30 Sodium Chloride 1,000 ml @ 100 mls/hr Q10H IV Last administered on 05/01/19at 21:25; Start 04/29/19 at 13:20 Ondansetron HCl (Zofran) 4 mg PRN Q4HRS PRN IV NAUSEA/VOMITING; Start 04/29/19 at 13:30 Zolpidem Tartrate (Ambien) 5 mg PRN QHS PRN PO INSOMNIA; Start 04/29/19 at 13:30 Acetaminophen (Tylenol) 650 mg PRN Q4HRS PRN PO TEMP OVER 100.4F OR MILD PAIN Last administered on 05/02/19at 00:26; Start 04/29/19 at 13:30 Al Hydroxide/Mg Hydroxide (Mylanta Plus Xs) 30 ml PRN DAILY PRN PO HEARTBURN / GAS; Start 04/29/19 at 13:30 Clonidine HCl (Catapres) 0.1 mg PRN Q6HRS PRN PO SBP>160 OR DBP>90; Start 04/29/19 at 13:30 Docusate Sodium (Colace) 100 mg PRN BID PRN PO HARD STOOLS; Start 04/29/19 at 13:30 Albuterol/ Ipratropium (Duoneb) 3 ml Q4H NEB Last administered on 04/29/19at 19:59; Start 04/29/19 at 13:30; Stop 04/29/19 at 20:06; Status DC Guaifenesin (Robitussin) 200 mg PRN Q4HRS PRN PO COUGH; Start 04/29/19 at 13:30 Lorazepam (Ativan) 0.5 mg PRN Q4HRS PRN PO ANXIETY / AGITATION; Start 04/29/19 at 13:30 Enoxaparin Sodium (Lovenox 40mg Syringe) 40 mg DAILY SQ Last administered on 05/01/19at 09:00; Start 04/30/19 at 09:00 Albuterol/ Ipratropium (Duoneb) 3 ml QID NEB Last administered on 05/01/19at 20:59; Start 04/30/19 at 09:00 Epinephrine HCl (Adrenalin) 1 mg STK-MED ONCE .ROUTE ; Start 04/30/19 at 07:15; Stop 04/30/19 at 07:15; Status DC Lidocaine HCl (Lidocaine 1% 20ml Vial) 20 ml STK-MED ONCE .ROUTE ; Start 04/30/19 at 07:15; Stop 04/30/19 at 07:15; Status DC Lidocaine HCl (Lidocaine 2% Viscous) 100 ml STK-MED ONCE .ROUTE ; Start 04/30/19 at 07:15; Stop 04/30/19 at 07:15; Status DC Lidocaine HCl 50 ml STK-MED ONCE .ROUTE ; Start 04/30/19 at 07:15; Stop 04/30/19 at 07:15; Status DC Propofol (Diprivan) 400 mg STK-MED ONCE IV ; Start 04/30/19 at 12:00; Stop 04/30/19 at 13:32; Status DC Azithromycin 500 mg/Sodium Chloride 250 ml @ 250 mls/hr Q24H IV Last administered on 05/01/19at 16:30; Start 04/30/19 at 16:00 Ceftriaxone Sodium (Rocephin) 1 gm Q24H IVP Last administered on 05/01/19at 16:30; Start 04/30/19 at 16:00 Lactobacillus Rhamnosus (Culturelle) 1 cap BID PO Last administered on 05/01/19at 21:25; Start 05/01/19 at 10:00 Vitals/I & O Vital Sign - Last 24 Hours 05/01/19 05/01/19 05/01/19 05/01/19 07:50 07:54 08:00 11:40 Temp 98.1 98.6 98.1 98.6 Pulse 99 99 Resp 18 18 B/P (MAP) 135/82 (99) 143/89 (107) Pulse Ox 99 97 97 O2 Delivery Room Air Room Air Room Air Room Air 05/01/19 05/01/19 05/01/19 05/01/19 11:46 15:13 15:33 19:45 Temp 98.5 98.3 98.5 98.3 Pulse 103 74 Resp 18 20 B/P (MAP) 138/93 (108) 143/94 (110) Pulse Ox 98 98 98 98 O2 Delivery Room Air Room Air Room Air Room Air 05/01/19 05/01/19 05/01/19 05/02/19 20:05 21:07 23:00 03:00 Temp 98.5 98.3 98.5 98.3 Pulse 81 72 Resp 18 18 B/P (MAP) 147/93 (111) 128/78 (95) Pulse Ox 100 98 96 O2 Delivery Room Air Room Air Room Air Room Air Intake and Output 05/01/19 05/01/19 05/02/19 15:00 23:00 07:00 Intake Total 800 ml 850 ml 120 ml Output Total 1600 ml 600 ml Balance -800 ml 250 ml 120 ml MARTHA MARCOS MD May 02, 2019 07:36
[2019-05-02] MEDS: LACTOBACILLUS RHAMNOSUS GG 1 CAPSULE. PO SCH ×2 (07:58→20:57)
[2019-05-02] MEDS: ENOXAPARIN 40 MG/0.4 ML SYRINGE. SQ SCH (07:58)
--- NOTE | 2019-05-02 08:30 | RAD ---
Indication: Lung nodules. Pneumonia. TECHNIQUE:Portable AP chest X-ray COMPARISON: CT from 04/28/2019. FINDINGS: Heart is normal in size. Cavitating mass and focal opacity is seen in the right upper lobe better seen on CT from 04/28 2019. Heart is normal in size. Left lung is clear. No pneumothorax or pleural effusion. Visualized bony thorax within normal limits. IMPRESSION: Stable right upper lobe cavitating mass and small area of consolidation when compared to previous CT from 04/28/2019. Electronically signed by: Homero Fajardo DO (05/02/2019 8:27 AM) [id number]
--- NOTE | 2019-05-02 08:51 | PDOC ---
Infectious Disease Note Subjective Subjective pt is feeling good ROS ROS no n/v/d/ Vital Sign Vital Signs Vital Signs Date Time Temp Pulse Resp B/P (MAP) Pulse Ox O2 Delivery O2 Flow Rate FiO2 05/02/19 08:00 Room Air 05/02/19 07:15 98.3 72 20 131/84 (100) 97 98.3 Physical Exam PHYSICAL EXAM GENERAL: Alert and oriented gentleman, not in any distress. VITAL SIGNS: Stable, afebrile. HEENT: NAD. NECK: Supple, no JVP, no lymphadenopathy. LUNGS: Clear. HEART: S1, S2 regular. ABDOMEN: Benign. EXTREMITIES: No edema, cyanosis. SKIN: Unremarkable. NEUROLOGIC: The patient is neurologically alert, awake and appropriate. No focal neurologic deficit. Labs Micro Microbiology 04/28/19 Blood Culture - Preliminary, Resulted NO GROWTH AFTER 1 DAY Objective Assessment 1. Multiple nodular cavitary lesion in the right upper lobe etiology, possibilities are tuberculosis versus melioidosis, especially [place] is [place]. 2. Weight loss. 3. Neck and back problems, chronic. Plan Plan of Care bronch done, culture pending, AFB stain pending d/w dr Nicolas cont antibiotics ALISA EDUARDO MD May 02, 2019 08:51
[2019-05-02] MEDS: IPRATRPIUM/ALBUTEROL 0.5/2.5MG 3 ML NEBU. NEB SCH ×4 (09:00→19:41)
[2019-05-02 11:15] VITALS: BP 128/79
--- NOTE | 2019-05-02 11:31 | PDOC ---
PULMONARY PROGRESS NOTES Subjective no soa no fever Vitals Vital Signs Date Time Temp Pulse Resp B/P (MAP) Pulse Ox O2 Delivery O2 Flow Rate FiO2 05/02/19 11:27 Room Air 05/02/19 11:15 97.6 70 18 128/79 (95) 96 97.6 General: Alert, No acute distress Lungs: Clear Cardiovascular: S1 Abdomen: Soft Neuro Exam: Alert Extremities: No Edema Skin: Warm Impression . IMPRESSION: 1. Multiple right upper lobe nodules, largest of them is 2.2 cm in size and is cavitary. differential diagnosis would certainly include infectious etiology such as tuberculosis ( Although I doubt it in the absence of any fevers), cavitary pneumonia, ? melioidosis etc.; however, noninfectious etiologies would also include pulmonary vasculitis/Tiffanie's granulomatosis etc 2. s/p bronchoscopy , follow cultures and I would recommend keep him in respiratory isolation till AFB smear neg. Plan . 1. Continue respiratory isolation till AFB smear negative 2. s/p bronchoscopy. P results 3. Would recommend connective tissue workup as an outpatient as it is not permitted while in the hospital if diagnosis is still not established. 4. CT abdomen and pelvis with renal cysts. ? polycystic kidney disease. consider renal consult . will leave up to PCP 5. Continue broad-spectrum antibiotics per ID 6. repeat ct chest Sunday. If no improvement, consider ct guided bx of cavitary nodule. cxr today with no change 7. Discussed with RN / GENEVIEVE Nolen MD May 02, 2019 11:31
[2019-05-02] MEDS: AZITHROMYCIN 500 MG in IV NORMAL SALINE 250ML 250 ML IV SCH (14:56)
[2019-05-02] MEDS: cefTRIAXone IV Push 1 GM VIAL. IVP SCH (14:56)
[2019-05-02 15:15] VITALS: BP 126/84
--- NOTE | 2019-05-02 19:06 | PATHOLOGY ---
Note [facility] Accession Number: [id number] TESTS RESULT FLAG UNITS REF RANGE LAB Clinician Provided Cytology Information No. of containers..01 Other (Miscellaneous) Source: RUL BAL DIAGNOSIS: 02 RUL BAL NEGATIVE FOR MALIGNANT CELLS. BRONCHIAL EPITHELIAL CELLS AND PULMONARY MACROPHAGES PRESENT. Signed out by: Nestor Reyes MD, Pathologist NPI- [id number] Performed by: Sallie Campos, [employer] ([facility]) Gross description: 01 3 ML, COLORLESS, CLEAR /LCS 06/03/1840 0000 Local FLAG LEGEND: L-Low Normal,H-High Normal,LL-Alert Low,HH-Alert High <-Panic Low,>-Panic High,A-Abnormal,AA-Critical Abnormal Performed at: [address] [place] [address] Henry Chopra MD, 02 [facility] [address] [place] [address] Nestor Reyes MD, Specimen Comment: A courtesy copy of this report has been sent to [phone] Specimen Comment: [id number] Specimen Comment: Report sent to / DR MARCOS Specimen Comment: Report sent to Performed at: [address] [place] [address] [address], [place], [place] [id number] MD Henry Chopra MD Phone: [phone]
[2019-05-02 19:15] VITALS: BP 130/78
[2019-05-02 23:03] VITALS: BP 118/78
[2019-05-03 03:01] VITALS: BP 110/70
[2019-05-03] MEDS: IV NORMAL SALINE 1000ML BAG 1,000 ML IV SCH ×2 (03:30→13:03)
[2019-05-03] MEDS: IPRATRPIUM/ALBUTEROL 0.5/2.5MG 3 ML NEBU. NEB SCH ×4 (06:58→20:44)
[2019-05-03 07:00] VITALS: BP 142/86
[2019-05-03] MEDS: ACETAMINOPHEN 325 MG TABLET. PO PRN (07:56)
[2019-05-03] MEDS: LACTOBACILLUS RHAMNOSUS GG 1 CAPSULE. PO SCH ×2 (07:56→20:58)
[2019-05-03] MEDS: ENOXAPARIN 40 MG/0.4 ML SYRINGE. SQ SCH (08:01)
--- NOTE | 2019-05-03 08:25 | PDOC ---
PROGRESS NOTES Chief Complaint Chief Complaint Assessment/Plan 1. pulmonary nodules clustered in the right upper lobe one of which is cavitary. 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 severe protein-caloric malnutrition 3. POSSIBLE POLYCYSTIC KIDNEY DISEASE PLAN ADMIT ID CONSULT PULM CONSULT TB TESTING BRONCHOSCOPY 04/30 CT CHESt/ ABD/ PELVIS dvt prophylaxis iv rocephin, zithromax NEPHROLOGY consult 28 MIN PT EXAM, CHART REVIEW, > 50% OF TIME spent with pt exam, chart review, pt care coordination History of Present Illness History of Present Illness Mr Belcher is a 34-year-old male from [facility] who does not speak [place]. It was difficult to obtain much history from the patient and I was able to get hold of his steeler who can speak a little bit [place]. According to him, the patient was brought into the hospital as he was complaining of dizziness. He does not complain of much cough, fever or night sweats. He does not know whether he had a PPD done when he arrived in [place] 3 years ago. There are no obvious TB exposures. The patient underwent chest x-ray, which was abnormal with infiltrate in the right upper lobe. As a result, he underwent CTA chest. He had numerous nodules in the right upper lobe, largest of them is in the right lung apex, which is cavitary in about 2.2 cm in size. The patient was started on antibiotic Rocephin along with Zithromax. He underwent bronchoscopy 04/30/19 with acid fast staining, being seen by pulmonology and ID. He states he has been told he has kidney, liver, and lung disease previously. Feeling somewhat better today. Still with cough and headache as well as abdominal pain. Vitals Vitals Vital Signs Date Time Temp Pulse Resp B/P (MAP) Pulse Ox O2 Delivery O2 Flow Rate FiO2 05/03/19 08:00 Room Air 05/03/19 07:00 98.4 85 16 142/86 (104) 96 98.4 Physical Exam Physical Exam GENERAL: Alert and oriented gentleman, not in any distress. VITAL SIGNS: Stable, afebrile. HEENT: NAD. NECK: Supple, no JVP, no lymphadenopathy. LUNGS: Clear. HEART: S1, S2 regular. ABDOMEN: Benign. EXTREMITIES: No edema, cyanosis. SKIN: Unremarkable. NEUROLOGIC: The patient is neurologically alert, awake and appropriate. No focal neurologic deficit. General: Alert, Oriented X3, Cooperative, No acute distress Heart: Regular rate, Normal S1 Lungs: Clear Abdomen: Normal bowel sounds, Soft, No tenderness, No hepatosplenomegaly Extremities: No cyanosis Assessment and Plan Assessmemt and Plan Problems Medical Problems: (1) Dizziness Status: Acute (2) Head pain Status: Acute Comment Review of Relevant I have reviewed the following items analilia (where applicable) has been applied. Labs Microbiology 04/30/19 - Final, Complete 04/28/19 Blood Culture - Preliminary, Resulted NO GROWTH AFTER 4 DAYS Medications Current Medications Prochlorperazine Edisylate (Compazine) 10 mg 1X ONCE IV Last administered on 04/28/19at 17:00; Start 04/28/19 at 17:00; Stop 04/28/19 at 17:01; Status DC Diphenhydramine HCl (Benadryl) 25 mg 1X ONCE IVP Last administered on 04/28/19at 17:24; Start 04/28/19 at 17:00; Stop 04/28/19 at 17:01; Status DC Sodium Chloride 1,000 ml @ 1,000 mls/hr 1X ONCE IV Last administered on 04/28/19at 17:23; Start 04/28/19 at 17:00; Stop 04/28/19 at 17:59; Status DC Potassium Chloride (Klor-Con) 20 meq 1X ONCE PO Last administered on 04/28/19at 18:47; Start 04/28/19 at 18:00; Stop 04/28/19 at 18:01; Status DC Ketorolac Tromethamine (Toradol 30mg Vial) 30 mg 1X ONCE IVP Last administered on 04/28/19at 18:46; Start 04/28/19 at 18:00; Stop 04/28/19 at 18:01; Status DC Azithromycin 250 ml @ 250 mls/hr 1X ONCE IV Last administered on 04/28/19at 18:47; Start 04/28/19 at 18:30; Stop 04/28/19 at 19:29; Status DC Ceftriaxone Sodium (Rocephin) 1 gm 1X ONCE IVP Last administered on 04/28/19at 18:47; Start 04/28/19 at 18:30; Stop 04/28/19 at 18:31; Status DC Iohexol (Omnipaque 350 Mg/ml) 90 ml 1X ONCE IV Last administered on 04/28/19at 19:30; Start 04/28/19 at 18:45; Stop 04/28/19 at 18:46; Status DC Info (CONTRAST GIVEN -- Rx MONITORING) 1 each PRN DAILY PRN MC SEE COMMENTS; Start 04/28/19 at 18:45; Stop 04/29/19 at 09:29; Status DC Ondansetron HCl (Zofran) 4 mg PRN Q8HRS PRN IV NAUSEA/VOMITING; Start 04/28/19 at 19:30; Stop 04/29/19 at 13:28; Status DC Fentanyl Citrate (Fentanyl 2ml Vial) 50 mcg PRN Q1HR PRN IV PAIN; Start 04/28/19 at 19:30; Stop 04/29/19 at 19:29; Status DC Acetaminophen (Tylenol) 650 mg PRN Q4HRS PRN PO FEVER; Start 04/28/19 at 19:30; Stop 04/29/19 at 19:29; Status DC Magnesium Sulfate 100 ml @ 25 mls/hr 1X ONCE IV Last administered on 04/29/19at 08:59; Start 04/29/19 at 09:00; Stop 04/29/19 at 12:59; Status DC Potassium Chloride (Klor-Con) 40 meq 1X ONCE PO Last administered on 04/29/19at 08:56; Start 04/29/19 at 09:00; Stop 04/29/19 at 09:01; Status DC Iohexol (Omnipaque 300 Mg/ml) 75 ml 1X ONCE IV Last administered on 04/29/19at 09:30; Start 04/29/19 at 09:30; Stop 04/29/19 at 09:31; Status DC Iohexol (Omnipaque 240 Mg/ml) 30 ml 1X ONCE PO ; Start 04/29/19 at 09:30; Stop 04/29/19 at 09:31; Status DC Info (CONTRAST GIVEN -- Rx MONITORING) 1 each PRN DAILY PRN MC SEE COMMENTS; Start 04/29/19 at 09:30; Stop 05/01/19 at 09:29; Status DC Albuterol Sulfate (Ventolin Neb Soln) 2.5 mg PRN 1X PRN NEB SHORTNESS OF BREATH Last administered on 04/30/19at 08:59; Start 04/29/19 at 11:45; Stop 04/30/19 at 11:44; Status DC Lidocaine HCl (Lidocaine 2% Viscous) 100 ml PRN 1X PRN MM MOUTH PAIN Last administered on 04/30/19at 09:00; Start 04/29/19 at 11:45; Stop 04/30/19 at 11:44; Status DC Lidocaine HCl (Lidocaine 1% 20ml Vial) 20 ml PRN 1X PRN INJ SEE COMMENTS Last administered on 04/30/19at 09:00; Start 04/29/19 at 11:45; Stop 04/30/19 at 11:44; Status DC Epinephrine HCl (Adrenalin) 1 mg PRN 1X PRN INJ SEE COMMENTS; Start 04/29/19 at 11:45; Stop 04/30/19 at 11:44; Status DC Lidocaine HCl 50 ml PRN 1X PRN MM SEE COMMENTS Last administered on 04/30/19at 09:00; Start 04/29/19 at 11:45; Stop 04/30/19 at 11:44; Status DC Ringer's Solution 1,000 ml @ 50 mls/hr Q20H IV Last administered on 04/30/19at 08:00; Start 04/30/19 at 07:00; Stop 04/30/19 at 18:59; Status DC Sodium Chloride (Normal Saline Flush) 3 ml QSHIFT PRN IV AFTER MEDS AND BLOOD DRAWS; Start 04/29/19 at 13:30 Sodium Chloride 1,000 ml @ 100 mls/hr Q10H IV Last administered on 05/03/19at 03:30; Start 04/29/19 at 13:20 Ondansetron HCl (Zofran) 4 mg PRN Q4HRS PRN IV NAUSEA/VOMITING; Start 04/29/19 at 13:30 Zolpidem Tartrate (Ambien) 5 mg PRN QHS PRN PO INSOMNIA; Start 04/29/19 at 13:30 Acetaminophen (Tylenol) 650 mg PRN Q4HRS PRN PO TEMP OVER 100.4F OR MILD PAIN Last administered on 05/03/19at 07:56; Start 04/29/19 at 13:30 Al Hydroxide/Mg Hydroxide (Mylanta Plus Xs) 30 ml PRN DAILY PRN PO HEARTBURN / GAS; Start 04/29/19 at 13:30 Clonidine HCl (Catapres) 0.1 mg PRN Q6HRS PRN PO SBP>160 OR DBP>90; Start 04/29/19 at 13:30 Docusate Sodium (Colace) 100 mg PRN BID PRN PO HARD STOOLS; Start 04/29/19 at 13:30 Albuterol/ Ipratropium (Duoneb) 3 ml Q4H NEB Last administered on 04/29/19at 19:59; Start 04/29/19 at 13:30; Stop 04/29/19 at 20:06; Status DC Guaifenesin (Robitussin) 200 mg PRN Q4HRS PRN PO COUGH; Start 04/29/19 at 13:30 Lorazepam (Ativan) 0.5 mg PRN Q4HRS PRN PO ANXIETY / AGITATION; Start 04/29/19 at 13:30 Enoxaparin Sodium (Lovenox 40mg Syringe) 40 mg DAILY SQ Last administered on 05/03/19at 08:01; Start 04/30/19 at 09:00 Albuterol/ Ipratropium (Duoneb) 3 ml QID NEB Last administered on 05/03/19at 06:58; Start 04/30/19 at 09:00 Epinephrine HCl (Adrenalin) 1 mg STK-MED ONCE .ROUTE ; Start 04/30/19 at 07:15; Stop 04/30/19 at 07:15; Status DC Lidocaine HCl (Lidocaine 1% 20ml Vial) 20 ml STK-MED ONCE .ROUTE ; Start 04/30/19 at 07:15; Stop 04/30/19 at 07:15; Status DC Lidocaine HCl (Lidocaine 2% Viscous) 100 ml STK-MED ONCE .ROUTE ; Start 04/30/19 at 07:15; Stop 04/30/19 at 07:15; Status DC Lidocaine HCl 50 ml STK-MED ONCE .ROUTE ; Start 04/30/19 at 07:15; Stop 04/30/19 at 07:15; Status DC Propofol (Diprivan) 400 mg STK-MED ONCE IV ; Start 04/30/19 at 12:00; Stop 04/30/19 at 13:32; Status DC Azithromycin 500 mg/Sodium Chloride 250 ml @ 250 mls/hr Q24H IV Last administered on 05/02/19at 14:56; Start 04/30/19 at 16:00 Ceftriaxone Sodium (Rocephin) 1 gm Q24H IVP Last administered on 05/02/19at 14:56; Start 04/30/19 at 16:00 Lactobacillus Rhamnosus (Culturelle) 1 cap BID PO Last administered on 05/03/19at 07:56; Start 05/01/19 at 10:00 Vitals/I & O Vital Sign - Last 24 Hours 05/02/19 05/02/19 05/02/19 05/02/19 09:09 11:15 11:27 15:15 Temp 97.6 98.2 97.6 98.2 Pulse 70 74 Resp 18 20 B/P (MAP) 128/79 (95) 126/84 (98) Pulse Ox 99 96 99 O2 Delivery Room Air Room Air Room Air Room Air 05/02/19 05/02/19 05/02/19 05/02/19 15:47 19:15 19:42 20:02 Temp 98.2 98.2 Pulse 77 Resp 16 B/P (MAP) 130/78 (95) Pulse Ox 97 O2 Delivery Room Air Room Air Room Air Room Air 05/02/19 05/02/19 05/03/19 05/03/19 22:35 23:03 03:01 06:59 Temp 98.7 97.8 98.7 97.8 Pulse 77 63 Resp 18 16 B/P (MAP) 118/78 (91) 110/70 (83) Pulse Ox 96 96 O2 Delivery Room Air Room Air Room Air Room Air 05/03/19 05/03/19 07:00 08:00 Temp 98.4 98.4 Pulse 85 Resp 16 B/P (MAP) 142/86 (104) Pulse Ox 96 O2 Delivery Room Air Room Air Intake and Output0 05/02/19 05/02/19 05/03/19 15:00 23:00 07:00 Intake Total 520 ml 360 ml 1510 ml Output Total 300 ml 200 ml 750 ml Balance 220 ml 160 ml 760 ml MARTHA MARCOS MD May 03, 2019 08:25
--- NOTE | 2019-05-03 10:32 | PDOC ---
Infectious Disease Note Subjective Subjective Doing ok No N/V/SOA/F/C Vital Sign Vital Signs Vital Signs Date Time Temp Pulse Resp B/P (MAP) Pulse Ox O2 Delivery O2 Flow Rate FiO2 05/03/19 08:00 Room Air 05/03/19 07:00 98.4 85 16 142/86 (104) 96 98.4 Physical Exam PHYSICAL EXAM GENERAL: Propped up in bed, alert, NAD HEENT: Pupils equal, oral cavity pink, mosist. No lesions NECK: Supple, no JVP, no lymphadenopathy. LUNGS: Diminished aeration right lung hendrickson, nonlabored HEART: S1, S2 regular. ABDOMEN: Soft and nontender EXTREMITIES: No edema, cyanosis. SKIN: without rash NEUROLOGIC: Alert, appropriate PIV Labs Micro BRONCHIAL GRAM STAIN Final WBCS FEW ORGANISMS NONE SEEN 04/28/19 Blood Culture - Preliminary, Resulted NO GROWTH AFTER 4 DAYS Objective Assessment 1. Multiple nodular cavitary lesion in the right upper lobe etiology, possibilities are tuberculosis versus melioidosis, especially [place] is [place]. -s/o bronchoscopy, 04/30. 2. Weight loss. 3. Neck and back problems, chronic. 4. ? polycystic kidney disease on CT Plan Plan of Care culture pending, AFB stain pending, T-spot pending Rocephin, azithromycin Probiotics Attending Co-Sign The patient was seen and interviewed as well as examined at the bedside. The chart was reviewed. The case was discussed. Agree with the plan of care. MARC LEMUS APRN May 03, 2019 10:32 ALISA EDUARDO MD May 03, 2019 13:44
[2019-05-03 11:00] VITALS: BP 139/88
--- NOTE | 2019-05-03 14:11 | PDOC ---
PULMONARY PROGRESS NOTES Subjective no soa no fever Vitals Vital Signs Date Time Temp Pulse Resp B/P (MAP) Pulse Ox O2 Delivery O2 Flow Rate FiO2 05/03/19 11:23 Room Air 05/03/19 11:00 97.9 75 16 139/88 (105) 98 97.9 General: Alert, No acute distress Lungs: Clear Cardiovascular: S1 Abdomen: Soft Neuro Exam: Alert Extremities: No Edema Skin: Warm Labs culture of bronchoscopy specimen returned normal claudia cytology on bronchoscopy specimen negative for malignant cells Impression . IMPRESSION: 1. Multiple right upper lobe nodules, largest of them is 2.2 cm in size and is cavitary. differential diagnosis would certainly include infectious etiology such as tuberculosis ( Although I doubt it in the absence of any fevers), See comment below. cavitary pneumonia, ? melioidosis etc.; however, noninfectious etiologies would also include pulmonary vasculitis/Tiffanie's granulomatosis etc 2. s/p bronchoscopy , follow cultures and I would recommend keep him in respiratory isolation till AFB smear neg. Comment:I believe the thick walled cavity is in keeping with an active process, despite the fact that he is relatively asymptomatic. The radiographic appearance and overall clinical picture is much more indicative of infectious process rather than neoplasm or Tiffanie's. While TB is possible, the imaging is not typical (despite upper lobe cavity), and as noted he is relatively asymptomatic. I believe the clinical picture and radiographic picture favor melioidosis. TB nucleic amplification test (such as XPERT) on BAL and/or sputum are more sensitive than AFB smear. If he is negative on AFB smear and/or nucleic amplification, he does not need isolation. I would also comment that most active cavitary TB is smear positive. I also know that there are specific culures for melioidosis, but I do not know availability or utility. I would de carlo to ID regarding that. I believe that an acceptable alternative if his bronchoscopy is non-diagnostic is to empirically treat him for melioidosis and follow CT. Plan . 1. Continue respiratory isolation till AFB smear negative 2. s/p bronchoscopy. P results 3. Would recommend connective tissue workup as an outpatient as it is not permitted while in the hospital if diagnosis is still not established. 4. CT abdomen and pelvis with renal cysts. ? polycystic kidney disease. consider renal consult . will leave up to PCP 5. Continue broad-spectrum antibiotics per ID 6. repeat ct chest Sunday. If no improvement, consider ct guided bx of cavitary nodule versus empiric therapy. Comment:I believe the thick walled cavity is in keeping with an active process, despite the fact that he is relatively asymptomatic. The radiographic appearance and overall clinical picture is much more indicative of infectious process rather than neoplasm or Tiffanie's. While TB is possible, the imaging is not typical (despite upper lobe cavity), and as noted he is relatively asymptomatic. I believe the clinical picture and radiographic picture favor melioidosis. TB nucleic amplification test (such as XPERT) on BAL and/or sputum are more sens itive than AFB smear. If he is negative on AFB smear and/or nucleic amplification, he does not need isolation. I would also comment that most active cavitary TB is smear positive. I also know that there are specific culures for melioidosis, but I do not know availability or utility. I would defer to ID regarding that. I believe that an acceptable alternative if his bronchoscopy is non-diagnostic is to empirically treat him for melioidosis and follow CT. MYCHAL MAK MD May 03, 2019 14:11
[2019-05-03] MEDS: cefTRIAXone IV Push 1 GM VIAL. IVP SCH (14:59)
[2019-05-03 15:00] VITALS: BP 135/82
[2019-05-03 19:00] VITALS: BP 149/100
[2019-05-03 23:00] VITALS: BP 138/86
[2019-05-04 02:35] VITALS: BP 144/84
[2019-05-04] MEDS: IV NORMAL SALINE 1000ML BAG 1,000 ML IV SCH ×3 (03:32→17:43)
[2019-05-04 07:00] VITALS: BP 136/84
[2019-05-04] MEDS: IPRATRPIUM/ALBUTEROL 0.5/2.5MG 3 ML NEBU. NEB SCH ×4 (07:19→19:40)
[2019-05-04] MEDS: LACTOBACILLUS RHAMNOSUS GG 1 CAPSULE. PO SCH ×2 (08:01→21:05)
[2019-05-04] MEDS: ENOXAPARIN 40 MG/0.4 ML SYRINGE. SQ SCH (08:02)
--- NOTE | 2019-05-04 10:45 | PDOC ---
Infectious Disease Note Subjective Subjective Doing ok No issues raised Eating 100% meals Vital Sign Vital Signs Vital Signs Date Time Temp Pulse Resp B/P (MAP) Pulse Ox O2 Delivery O2 Flow Rate FiO2 05/04/19 07:29 Room Air 05/04/19 07:00 97.8 89 18 136/84 (101) 97 97.8 Physical Exam PHYSICAL EXAM GENERAL: Propped up in bed, alert, NAD HEENT: Pupils equal, oral cavity pink, mosist. No lesions NECK: Supple, no JVP, no lymphadenopathy. LUNGS: Diminished aeration right lung hendrickson, nonlabored HEART: S1, S2 regular. ABDOMEN: Soft and nontender EXTREMITIES: No edema, cyanosis. SKIN: without rash NEUROLOGIC: Alert, appropriate PIV Labs Micro BRONCH RES 1 Preliminary Routine respiratory claudia AFB CULTURE GRAM STAIN Final Negative 04/28/19 Blood Culture - Preliminary, Resulted NO GROWTH AFTER 5 DAYS Objective Assessment 1. Multiple nodular cavitary lesion in the right upper lobe etiology, possibilities are tuberculosis versus melioidosis, especially he is from [place]. -s/o bronchoscopy, 04/30. AF stain neg. bacterial culture neg 2. Weight loss. 3. Neck and back problems, chronic. 4. ? polycystic kidney disease on CT Plan Plan of Care T-spot pending CT chest 05/05 Continue Rocephin Off azithromycin Probiotics D/w nursing Attending Co-Sign The patient was seen and interviewed as well as examined at the bedside. The chart was reviewed. The case was discussed. Agree with the plan of care. MARC LEMUS APRN May 04, 2019 10:45 ALISA EDUARDO MD May 04, 2019 13:14
[2019-05-04 11:00] VITALS: BP 145/90
--- NOTE | 2019-05-04 13:07 | NUR ---
Received notification from Dr. Viral Regan that patient no longer needs to be in droplet isolation precautions.
--- NOTE | 2019-05-04 13:07 | PDOC ---
PULMONARY PROGRESS NOTES Subjective no soa no fever Vitals Vital Signs Date Time Temp Pulse Resp B/P (MAP) Pulse Ox O2 Delivery O2 Flow Rate FiO2 05/04/19 11:09 97 Room Air 05/04/19 11:00 97.9 95 16 145/90 (108) 97.9 General: Alert, No acute distress Lungs: Clear Cardiovascular: S1 Abdomen: Soft Neuro Exam: Alert Extremities: No Edema Skin: Warm Impression . IMPRESSION: 1. Multiple right upper lobe nodules, largest of them is 2.2 cm in size and is cavitary. differential diagnosis would certainly include infectious etiology such as tuberculosis ( Although I doubt it in the absence of any fevers), See comment below. cavitary pneumonia, ? melioidosis etc.; however, noninfectious etiologies would also include pulmonary vasculitis/Tiffanie's granulomatosis etc 2. s/p bronchoscopy , follow cultures and I would recommend keep him in respiratory isolation till AFB smear neg. Comment:I believe the thick walled cavity is in keeping with an active process, despite the fact that he is relatively asymptomatic. The radiographic appearance and overall clinical picture is much more indicative of infectious pr ocess rather than neoplasm or Tiffanie's. While TB is possible, the imaging is not typical (despite upper lobe cavity), and as noted he is relatively asymptomatic. I believe the clinical picture and radiographic picture favor melioidosis. TB nucleic amplification test (such as XPERT) on BAL and/or sputum are more sensitive than AFB smear. If he is negative on AFB smear and/or nucleic amplification, he does not need isolation. I would also comment that most active cavitary TB is smear positive. I also know that there are specific culures for melioidosis, but I do not know availability or utility. I would defer to ID regarding that. I believe that an acceptable alternative if his bronchoscopy is non-diagnostic is to empirically treat him for melioidosis and follow CT. Plan . 1. Continue respiratory isolation till AFB smear negative 2. s/p bronchoscopy. P results 3. Would recommend connective tissue workup as an outpatient as it is not permitted while in the hospital if diagnosis is still not established. 4. CT abdomen and pelvis with renal cysts. ? polycystic kidney disease. consider renal consult . will leave up to PCP 5. Continue broad-spectrum antibiotics per ID 6. repeat ct chest Sunday. If no improvement, consider ct guided bx of cavitary nodule versus empiric therapy. Comment:I believe the thick walled cavity is in keeping with an active process, despite the fact that he is relatively asymptomatic. The radiographic appearance and overall clinical picture is much more indicative of infectious process rather than neoplasm or Tiffanie's. While TB is possible, the imaging is not typical (despite upper lobe cavity), and as noted he is relatively asymptomatic. I believe the clinical picture and radiographic picture favor melioidosis. Discussed with Dr. Regan TB nucleic amplification test (such as XPERT) on BAL and/or sputum are more sensitive than AFB smear. If he is negative on AFB smear and/or nucleic amplification, he does not need isolation. I would also comment that most active cavitary TB is smear positive. I also know that there are specific culures for melioidosis, but I do not know availability or utility. I would defer to ID regarding that. I believe that an acceptable alternative if his bronchoscopy is non-diagnostic is to empirically treat him for melioidosis and follow CT. MYCHAL MAK MD May 04, 2019 13:07
[2019-05-04] MEDS: cefTRIAXone IV Push 1 GM VIAL. IVP SCH (14:59)
[2019-05-04 15:00] VITALS: BP 118/76
--- NOTE | 2019-05-04 15:33 | PDOC ---
PROGRESS NOTES Chief Complaint Chief Complaint Assessment/Plan pulmonary nodules clustered in the right upper lobe one of which is cavitary. 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 According to him, the patient was brought into the hospital as he was complaining of dizziness. He does not complain of much cough, fever or night sweats. He does not know whether he had a PPD done when he arrived in [place] 3 years ago. There are no obvious TB exposures. The patient underwent chest x-ray, which was abnormal with infiltrate in the right upper lobe. As a result, he underwent CTA chest. He had numerous nodules in the right upper lobe, largest of them is in the right lung apex, which is cavitary in about 2.2 cm in size. The patient was started on antibiotic Rocephin along with Zithromax. He underwent bronchoscopy 04/30/19 with acid fast staining, being seen by pulmonology and ID. He states he has been told he has kidney, liver, and lung disease previously. Feeling somewhat better today. Still with cough and headache as well as abdominal pain. Vitals Vitals Vital Signs Date Time Temp Pulse Resp B/P (MAP) Pulse Ox O2 Delivery O2 Flow Rate FiO2 05/04/19 11:09 97 Room Air 05/04/19 11:00 97.9 95 16 145/90 (108) 97.9 Physical Exam Physical Exam GENERAL: Propped up in bed, alert, NAD HEENT: Pupils equal, oral cavity pink, mosist. No lesions NECK: Supple, no JVP, no lymphadenopathy. LUNGS: Diminished aeration right lung hendricskon, nonlabored HEART: S1, S2 regular. ABDOMEN: Soft and nontender EXTREMITIES: No edema, cyanosis. SKIN: without rash NEUROLOGIC: Alert, appropriate PIV General: Alert, Oriented X3, Cooperative, No acute distress Heart: Regular rate, Normal S1 Lungs: Clear Abdomen: Normal bowel sounds, Soft, No tenderness, No hepatosplenomegaly Extremities: No cyanosis Assessment and Plan Assessmemt and Plan Problems Medical Problems: (1) Dizziness Status: Acute (2) Head pain Status: Acute Comment Review of Relevant I have reviewed the following items analilia (where applicable) has been applied. Labs Microbiology 04/30/19 AFB Specimen Processing Tissue - Final, Resulted 04/30/19 Acid Fast Bacilli Culture, Resulted Pending 04/30/19 Gram Stain - Final, Resulted 04/30/19 Fungal Culture, Resulted Pending 04/30/19 Fungal Culture Result 1, Resulted Pending 04/28/19 Blood Culture - Final, Complete NO GROWTH AFTER 5 DAYS Medications Current Medications Prochlorperazine Edisylate (Compazine) 10 mg 1X ONCE IV Last administered on 04/28/19at 17:00; Start 04/28/19 at 17:00; Stop 04/28/19 at 17:01; Status DC Diphenhydramine HCl (Benadryl) 25 mg 1X ONCE IVP Last administered on 04/28/19at 17:24; Start 04/28/19 at 17:00; Stop 04/28/19 at 17:01; Status DC Sodium Chloride 1,000 ml @ 1,000 mls/hr 1X ONCE IV Last administered on 04/28/19at 17:23; Start 04/28/19 at 17:00; Stop 04/28/19 at 17:59; Status DC Potassium Chloride (Klor-Con) 20 meq 1X ONCE PO Last administered on 04/28/19at 18:47; Start 04/28/19 at 18:00; Stop 04/28/19 at 18:01; Status DC Ketorolac Tromethamine (Toradol 30mg Vial) 30 mg 1X ONCE IVP Last administered on 04/28/19at 18:46; Start 04/28/19 at 18:00; Stop 04/28/19 at 18:01; Status DC Azithromycin 250 ml @ 250 mls/hr 1X ONCE IV Last administered on 04/28/19at 18:47; Start 04/28/19 at 18:30; Stop 04/28/19 at 19:29; Status DC Ceftriaxone Sodium (Rocephin) 1 gm 1X ONCE IVP Last administered on 04/28/19at 18:47; Start 04/28/19 at 18:30; Stop 04/28/19 at 18:31; Status DC Iohexol (Omnipaque 350 Mg/ml) 90 ml 1X ONCE IV Last administered on 04/28/19at 19:30; Start 04/28/19 at 18:45; Stop 04/28/19 at 18:46; Status DC Info (CONTRAST GIVEN -- Rx MONITORING) 1 each PRN DAILY PRN MC SEE COMMENTS; Start 04/28/19 at 18:45; Stop 04/29/19 at 09:29; Status DC Ondansetron HCl (Zofran) 4 mg PRN Q8HRS PRN IV NAUSEA/VOMITING; Start 04/28/19 at 19:30; Stop 04/29/19 at 13:28; Status DC Fentanyl Citrate (Fentanyl 2ml Vial) 50 mcg PRN Q1HR PRN IV PAIN; Start 04/28/19 at 19:30; Stop 04/29/19 at 19:29; Status DC Acetaminophen (Tylenol) 650 mg PRN Q4HRS PRN PO FEVER; Start 04/28/19 at 19:30; Stop 04/29/19 at 19:29; Status DC Magnesium Sulfate 100 ml @ 25 mls/hr 1X ONCE IV Last administered on 04/29/19at 08:59; Start 04/29/19 at 09:00; Stop 04/29/19 at 12:59; Status DC Potassium Chloride (Klor-Con) 40 meq 1X ONCE PO Last administered on 04/29/19at 08:56; Start 04/29/19 at 09:00; Stop 04/29/19 at 09:01; Status DC Iohexol (Omnipaque 300 Mg/ml) 75 ml 1X ONCE IV Last administered on 04/29/19at 09:30; Start 04/29/19 at 09:30; Stop 04/29/19 at 09:31; Status DC Iohexol (Omnipaque 240 Mg/ml) 30 ml 1X ONCE PO ; Start 04/29/19 at 09:30; Stop 04/29/19 at 09:31; Status DC Info (CONTRAST GIVEN -- Rx MONITORING) 1 each PRN DAILY PRN MC SEE COMMENTS; Start 04/29/19 at 09:30; Stop 05/01/19 at 09:29; Status DC Albuterol Sulfate (Ventolin Neb Soln) 2.5 mg PRN 1X PRN NEB SHORTNESS OF BREATH Last administered on 04/30/19at 08:59; Start 04/29/19 at 11:45; Stop 04/30/19 at 11:44; Status DC Lidocaine HCl (Lidocaine 2% Viscous) 100 ml PRN 1X PRN MM MOUTH PAIN Last administered on 04/30/19at 09:00; Start 04/29/19 at 11:45; Stop 04/30/19 at 11:44; Status DC Lidocaine HCl (Lidocaine 1% 20ml Vial) 20 ml PRN 1X PRN INJ SEE COMMENTS Last administered on 04/30/19at 09:00; Start 04/29/19 at 11:45; Stop 04/30/19 at 11:44; Status DC Epinephrine HCl (Adrenalin) 1 mg PRN 1X PRN INJ SEE COMMENTS; Start 04/29/19 at 11:45; Stop 04/30/19 at 11:44; Status DC Lidocaine HCl 50 ml PRN 1X PRN MM SEE COMMENTS Last administered on 04/30/19at 09:00; Start 04/29/19 at 11:45; Stop 04/30/19 at 11:44; Status DC Ringer's Solution 1,000 ml @ 50 mls/hr Q20H IV Last administered on 04/30/19at 08:00; Start 04/30/19 at 07:00; Stop 04/30/19 at 18:59; Status DC Sodium Chloride (Normal Saline Flush) 3 ml QSHIFT PRN IV AFTER MEDS AND BLOOD DRAWS; Start 04/29/19 at 13:30 Sodium Chloride 1,000 ml @ 100 mls/hr Q10H IV Last administered on 05/04/19at 10:58; Start 04/29/19 at 13:20 Ondansetron HCl (Zofran) 4 mg PRN Q4HRS PRN IV NAUSEA/VOMITING; Start 04/29/19 at 13:30 Zolpidem Tartrate (Ambien) 5 mg PRN QHS PRN PO INSOMNIA; Start 04/29/19 at 13:30 Acetaminophen (Tylenol) 650 mg PRN Q4HRS PRN PO TEMP OVER 100.4F OR MILD PAIN Last administered on 05/03/19at 07:56; Start 04/29/19 at 13:30 Al Hydroxide/Mg Hydroxide (Mylanta Plus Xs) 30 ml PRN DAILY PRN PO HEARTBURN / GAS; Start 04/29/19 at 13:30 Clonidine HCl (Catapres) 0.1 mg PRN Q6HRS PRN PO SBP>160 OR DBP>90; Start 04/29/19 at 13:30 Docusate Sodium (Colace) 100 mg PRN BID PRN PO HARD STOOLS; Start 04/29/19 at 13:30 Albuterol/ Ipratropium (Duoneb) 3 ml Q4H NEB Last administered on 04/29/19at 19:59; Start 04/29/19 at 13:30; Stop 04/29/19 at 20:06; Status DC Guaifenesin (Robitussin) 200 mg PRN Q4HRS PRN PO COUGH; Start 04/29/19 at 13 :30 Lorazepam (Ativan) 0.5 mg PRN Q4HRS PRN PO ANXIETY / AGITATION; Start 04/29/19 at 13:30 Enoxaparin Sodium (Lovenox 40mg Syringe) 40 mg DAILY SQ Last administered on 05/04/19at 08:02; Start 04/30/19 at 09:00 Albuterol/ Ipratropium (Duoneb) 3 ml QID NEB Last administered on 05/04/19at 11:09; Start 04/30/19 at 09:00 Epinephrine HCl (Adrenalin) 1 mg STK-MED ONCE .ROUTE ; Start 04/30/19 at 07:15; Stop 04/30/19 at 07:15; Status DC Lidocaine HCl (Lidocaine 1% 20ml Vial) 20 ml STK-MED ONCE .ROUTE ; Start 04/30/19 at 07:15; Stop 04/30/19 at 07:15; Status DC Lidocaine HCl (Lidocaine 2% Viscous) 100 ml STK-MED ONCE .ROUTE ; Start 04/30/19 at 07:15; Stop 04/30/19 at 07:15; Status DC Lidocaine HCl 50 ml STK-MED ONCE .ROUTE ; Start 04/30/19 at 07:15; Stop 04/30/19 at 07:15; Status DC Propofol (Diprivan) 400 mg STK-MED ONCE IV ; Start 04/30/19 at 12:00; Stop 04/30/19 at 13:32; Status DC Azithromycin 500 mg/Sodium Chloride 250 ml @ 250 mls/hr Q24H IV Last administered on 05/02/19at 14:56; Start 04/30/19 at 16:00; Stop 05/03/19 at 13:56; Status DC Ceftriaxone Sodium (Rocephin) 1 gm Q24H IVP Last administered on 05/04/19at 1 4:59; Start 04/30/19 at 16:00 Lactobacillus Rhamnosus (Culturelle) 1 cap BID PO Last administered on 05/04/19at 08:01; Start 05/01/19 at 10:00 Vitals/I & O Vital Sign - Last 24 Hours 05/03/19 05/03/19 05/03/19 05/03/19 15:42 19:00 20:00 20:44 Temp 97.9 97.9 Pulse 80 Resp 18 B/P (MAP) 149/100 (116) Pulse Ox 92 O2 Delivery Room Air Room Air Room Air Room Air 05/03/19 05/04/19 05/04/19 05/04/19 23:00 02:35 07:00 07:19 Temp 98.2 98.0 97.8 98.2 98.0 97.8 Pulse 80 71 89 Resp 18 18 18 B/P (MAP) 138/86 (103) 144/84 (104) 136/84 (101) Pulse Ox 96 97 97 O2 Delivery Room Air Room Air Room Air Room Air 05/04/19 05/04/19 05/04/19 07:29 11:00 11:09 Temp 97.9 97.9 Pulse 95 Resp 16 B/P (MAP) 145/90 (108) Pulse Ox 97 97 O2 Delivery Room Air Room Air Room Air Intake and Output 05/03/19 05/03/19 05/04/19 15:00 23:00 07:00 Intake Total 370 ml 400 ml 1050 ml Output Total 150 ml 750 ml Balance 370 ml 250 ml 300 ml MARTHA MARCOS MD May 04, 2019 15:33
[2019-05-04 19:00] VITALS: BP 119/65
[2019-05-04 23:00] VITALS: BP 130/89
[2019-05-05 03:00] VITALS: BP 121/75
[2019-05-05 07:00] VITALS: BP 104/72
[2019-05-05] MEDS: IPRATRPIUM/ALBUTEROL 0.5/2.5MG 3 ML NEBU. NEB SCH ×4 (07:40→19:24)
[2019-05-05] MEDS: LACTOBACILLUS RHAMNOSUS GG 1 CAPSULE. PO SCH ×2 (09:16→22:36)
[2019-05-05] MEDS: ENOXAPARIN 40 MG/0.4 ML SYRINGE. SQ SCH ×2 (09:17→15:38)
--- NOTE | 2019-05-05 09:43 | NUR ---
SW following for discharge planning. Chart reviewed, discussed with RN. Pt TB test negative. Currently on IV Rocephin for pneumonia. RN advised no SW needs at this time, pt is up adlib. SW will continue to follow should any discharge needs arise.
--- NOTE | 2019-05-05 09:56 | RAD ---
Examination: CT chest without contrast HISTORY: History of cavitary mass COMPARISON: 04/28/2019 TECHNIQUE: Axial CT images of the chest were performed without contrast. Coronal and sagittal reformats are performed Exposure: One or more of the following individualized dose reduction techniques were utilized for this examination: 1. Automated exposure control 2. Adjustment of the mA and/or kV according to patient size 3. Use of iterative reconstruction technique FINDINGS: The visualized thyroid gland grossly appears unremarkable. The central airways are patent. The ascending aorta measures 3.6 cm in transverse dimension. The heart size grossly appears unremarkable. Cavitary lesion identified in the right upper lobe of the lung measuring 2.2 cm is unchanged. Nodular airspace opacities identified in the right upper lobe of the lung have increased in number and size compared to prior exam. There is interval increase in confluence of focal airspace opacity or mass identified in the inferior right upper lobe of the lung. New patchy nodular airspace opacities identified in the right lower lobe of the lung. Small bilateral pleural effusions identified Examination limited due to lack of IV contrast. Subcentimeter mediastinal lymph nodes are unchanged. The visualized noncontrasted liver, spleen, adrenals grossly appears unremarkable. Cystic structures identified in the bilateral kidneys partially visualized. Partially visualized tiny intrarenal collecting system calculi identified in the left kidney. IMPRESSION: 1. Cavitary lesion identified in the right upper lobe of the lung measuring 2.2 cm is unchanged. Nodular airspace opacities identified in the right upper lobe of the lung have increased in number and size compared to prior exam. There is interval increase in confluence of focal airspace opacity or mass identified in the inferior right upper lobe of the lung. New patchy nodular airspace opacities identified in the right lower lobe of the lung. Differential includes includes infectious/inflammatory etiology or neoplasm. Electronically signed by: Serge Nolan MD (05/05/2019 9:53 AM) [id number]
--- NOTE | 2019-05-05 09:59 | PDOC ---
PULMONARY PROGRESS NOTES Subjective no soa no fever Vitals Vital Signs Date Time Temp Pulse Resp B/P (MAP) Pulse Ox O2 Delivery O2 Flow Rate FiO2 05/05/19 08:00 Room Air 05/05/19 07:41 96 05/05/19 07:00 97.5 75 16 104/72 (83) 97.5 General: Alert, No acute distress Lungs: Clear Cardiovascular: S1 Abdomen: Soft Neuro Exam: Alert Extremities: No Edema Skin: Warm Impression . IMPRESSION: 1. Multiple right upper lobe nodules, largest of them is 2.2 cm in size and is cavitary. differential diagnosis would certainly include infectious etiology such as tuberculosis ( Although I doubt it in the absence of any fevers), See comment below. cavitary pneumonia, ? melioidosis etc.; however, noninfectious etiologies would also include pulmonary vasculitis/Tiffanie's granulomatosis etc 2. s/p bronchoscopy , off isolation, AFB smear neg Comment:I believe the thick walled cavity is in keeping with an active process, despite the fact that he is relatively asymptomatic. The radiographic appearance and overall clinical picture is much more indicative of infectious process rather than neoplasm or Tiffanie's. I believe the clinical picture and radiographic picture favor melioidosis. Plan . 1. off respiratory isolation, AFB smear negative 2. s/p bronchoscopy. results neg so far 3. Would recommend connective tissue workup as an outpatient as it is not permitted while in the hospital if diagnosis is still not established. 4. CT abdomen and pelvis with renal cysts. ? polycystic kidney disease. consider renal consult . will leave up to PCP 5. Continue broad-spectrum antibiotics per ID 6. repeat ct chest 05/05 reviewed. No improvement, proceed with ct guided bx of cavitary nodule . d/w GENEVIEVE CABRERA MD May 05, 2019 09:59
[2019-05-05 11:00] VITALS: BP 130/90
--- NOTE | 2019-05-05 11:23 | PDOC ---
PROGRESS NOTES Chief Complaint Chief Complaint pulmonary nodules clustered in the right upper lobe one of which is cavitary. severe protein-caloric malnutrition polycystic kidney disease 28 MIN PT EXAM, CHART REVIEW, > 50% OF TIME spent with pt exam, chart review, pt care coordination History of Present Illness History of Present Illness PULM CONSULT following, s/p bronch 04/30, IR planned biopsy AFB neg 04/30 CT CHESt/ ABD/ PELVIS Mr Belcher is a 34-year-old male from [facility] via [facility] who does not speak German. 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 According to him, the patient was brought into the hospital as he was complaining of dizziness. He does not complain of much cough, fever or night sweats. He does not know whether he had a PPD done when he arrived in [place] 3 years ago. There are no obvious TB exposures. The patient underwent chest x-ray, which was abnormal with infiltrate in the right upper lobe. As a result, he underwent CTA chest. He had numerous nodules in the right upper lobe, largest of them is in the right lung apex, which is cavitary in about 2.2 cm in size. The patient was started on antibiotic Rocephin along with Zithromax. He underwent bronchoscopy 04/30/19 with acid fast staining, being seen by pulmonology and ID. He states he has been told he has kidney, liver, and lung disease previously. I asked the [employer] person that speaks South Korean (Si Gretel) to translate, which was helpful, but patient spoke another version of [place] Korean,but patients family was able to understand Si Gretel and translate and we got the consent signed, some difficulty in explaining risks, Vitals Vitals Vital Signs Date Time Temp Pulse Resp B/P (MAP) Pulse Ox O2 Delivery O2 Flow Rate FiO2 05/05/19 10:59 96 Room Air 05/05/19 07:00 97.5 75 16 104/72 (83) 97.5 Physical Exam Physical Exam GENERAL: Propped up in bed, alert, NAD HEENT: Pupils equal, oral cavity pink, mosist. No lesions NECK: Supple, no JVP, no lymphadenopathy. LUNGS: Diminished aeration right lung hendrickson, nonlabored HEART: S1, S2 regular. ABDOMEN: Soft and nontender EXTREMITIES: No edema, cyanosis. SKIN: without rash NEUROLOGIC: Alert, appropriate PIV General: Alert, Oriented X3, Cooperative, No acute distress Heart: Regular rate, Normal S1 Lungs: Clear Abdomen: Normal bowel sounds, Soft, No tenderness, No hepatosplenomegaly Extremities: No cyanosis Review of Systems Review of Systems pain better, eating oK Assessment and Plan Assessmemt and Plan Problems Medical Problems: (1) Dizziness Status: Acute (2) Head pain Status: Acute Comment Review of Relevant I have reviewed the following items analilia (where applicable) has been applied. Labs Microbiology 04/30/19 AFB Specimen Processing Tissue - Final, Resulted 04/30/19 Acid Fast Bacilli Culture, Resulted Pending 04/30/19 Gram Stain - Final, Resulted 04/30/19 Fungal Culture, Resulted Pending 04/30/19 Fungal Culture Result 1, Resulted Pending 04/28/19 Blood Culture - Final, Complete NO GROWTH AFTER 5 DAYS Medications Current Medications Prochlorperazine Edisylate (Compazine) 10 mg 1X ONCE IV Last administered on 04/28/19at 17:00; Start 04/28/19 at 17:00; Stop 04/28/19 at 17:01; Status DC Diphenhydramine HCl (Benadryl) 25 mg 1X ONCE IVP Last administered on 04/28/19at 17:24; Start 04/28/19 at 17:00; Stop 04/28/19 at 17:01; Status DC Sodium Chloride 1,000 ml @ 1,000 mls/hr 1X ONCE IV Last administered on 04/28/19at 17:23; Start 04/28/19 at 17:00; Stop 04/28/19 at 17:59; Status DC Potassium Chloride (Klor-Con) 20 meq 1X ONCE PO Last administered on 04/28/19at 18:47; Start 04/28/19 at 18:00; Stop 04/28/19 at 18:01; Status DC Ketorolac Tromethamine (Toradol 30mg Vial) 30 mg 1X ONCE IVP Last administered on 04/28/19at 18:46; Start 04/28/19 at 18:00; Stop 04/28/19 at 18:01; Status DC Azithromycin 250 ml @ 250 mls/hr 1X ONCE IV Last administered on 04/28/19at 18:47; Start 04/28/19 at 18:30; Stop 04/28/19 at 19:29; Status DC Ceftriaxone Sodium (Rocephin) 1 gm 1X ONCE IVP Last administered on 04/28/19at 18:47; Start 04/28/19 at 18:30; Stop 04/28/19 at 18:31; Status DC Iohexol (Omnipaque 350 Mg/ml) 90 ml 1X ONCE IV Last administered on 04/28/19at 19:30; Start 04/28/19 at 18:45; Stop 04/28/19 at 18:46; Status DC Info (CONTRAST GIVEN -- Rx MONITORING) 1 each PRN DAILY PRN MC SEE COMMENTS; Start 04/28/19 at 18:45; Stop 04/29/19 at 09:29; Status DC Ondansetron HCl (Zofran) 4 mg PRN Q8HRS PRN IV NAUSEA/VOMITING; Start 04/28/19 at 19:30; Stop 04/29/19 at 13:28; Status DC Fentanyl Citrate (Fentanyl 2ml Vial) 50 mcg PRN Q1HR PRN IV PAIN; Start 04/28/19 at 19:30; Stop 04/29/19 at 19:29; Status DC Acetaminophen (Tylenol) 650 mg PRN Q4HRS PRN PO FEVER; Start 04/28/19 at 19:30; Stop 04/29/19 at 19:29; Status DC Magnesium Sulfate 100 ml @ 25 mls/hr 1X ONCE IV Last administered on 04/29/19at 08:59; Start 04/29/19 at 09:00; Stop 04/29/19 at 12:59; Status DC Potassium Chloride (Klor-Con) 40 meq 1X ONCE PO Last administered on 04/29/19at 08:56; Start 04/29/19 at 09:00; Stop 04/29/19 at 09:01; Status DC Iohexol (Omnipaque 300 Mg/ml) 75 ml 1X ONCE IV Last administered on 04/29/19at 09:30; Start 04/29/19 at 09:30; Stop 04/29/19 at 09:31; Status DC Iohexol (Omnipaque 240 Mg/ml) 30 ml 1X ONCE PO ; Start 04/29/19 at 09:30; Stop 04/29/19 at 09:31; Status DC Info (CONTRAST GIVEN -- Rx MONITORING) 1 each PRN DAILY PRN MC SEE COMMENTS; Start 04/29/19 at 09:30; Stop 05/01/19 at 09:29; Status DC Albuterol Sulfate (Ventolin Neb Soln) 2.5 mg PRN 1X PRN NEB SHORTNESS OF BREATH Last administered on 04/30/19at 08:59; Start 04/29/19 at 11:45; Stop 04/30/19 at 11:44; Status DC Lidocaine HCl (Lidocaine 2% Viscous) 100 ml PRN 1X PRN MM MOUTH PAIN Last administered on 04/30/19at 09:00; Start 04/29/19 at 11:45; Stop 04/30/19 at 11:44; Status DC Lidocaine HCl (Lidocaine 1% 20ml Vial) 20 ml PRN 1X PRN INJ SEE COMMENTS Last administered on 04/30/19at 09:00; Start 04/29/19 at 11:45; Stop 04/30/19 at 11:44; Status DC Epinephrine HCl (Adrenalin) 1 mg PRN 1X PRN INJ SEE COMMENTS; Start 04/29/19 at 11:45; Stop 04/30/19 at 11:44; Status DC Lidocaine HCl 50 ml PRN 1X PRN MM SEE COMMENTS Last administered on 04/30/19at 09:00; Start 04/29/19 at 11:45; Stop 04/30/19 at 11:44; Status DC Ringer's Solution 1,000 ml @ 50 mls/hr Q20H IV Last administered on 04/30/19at 08:00; Start 04/30/19 at 07:00; Stop 04/30/19 at 18:59; Status DC Sodium Chloride (Normal Saline Flush) 3 ml QSHIFT PRN IV AFTER MEDS AND BLOOD DRAWS; Start 04/29/19 at 13:30 Sodium Chloride 1,000 ml @ 100 mls/hr Q10H IV Last administered on 05/04/19at 17:43; Start 04/29/19 at 13:20 Ondansetron HCl (Zofran) 4 mg PRN Q4HRS PRN IV NAUSEA/VOMITING; Start 04/29/19 at 13:30 Zolpidem Tartrate (Ambien) 5 mg PRN QHS PRN PO INSOMNIA; Start 04/29/19 at 13:30 Acetaminophen (Tylenol) 650 mg PRN Q4HRS PRN PO TEMP OVER 100.4F OR MILD PAIN Last administered on 05/03/19at 07:56; Start 04/29/19 at 13:30 Al Hydroxide/Mg Hydroxide (Mylanta Plus Xs) 30 ml PRN DAILY PRN PO HEARTBURN / GAS; Start 04/29/19 at 13:30 Clonidine HCl (Catapres) 0.1 mg PRN Q6HRS PRN PO SBP>160 OR DBP>90; Start 04/29/19 at 13:30 Docusate Sodium (Colace) 100 mg PRN BID PRN PO HARD STOOLS; Start 04/29/19 at 13:30 Albuterol/ Ipratropium (Duoneb) 3 ml Q4H NEB Last administered on 04/29/19at 19:59; Start 04/29/19 at 13:30; Stop 04/29/19 at 20:06; Status DC Guaifenesin (Robitussin) 200 mg PRN Q4HRS PRN PO COUGH; Start 04/29/19 at 13:30 Lorazepam (Ativan) 0.5 mg PRN Q4HRS PRN PO ANXIETY / AGITATION; Start 04/29/19 at 13:30 Enoxaparin Sodium (Lovenox 40mg Syringe) 40 mg DAILY SQ Last administered on 05/05/19at 09:17; Start 04/30/19 at 09:00 Albuterol/ Ipratropium (Duoneb) 3 ml QID NEB Last administered on 05/05/19at 10:58; Start 04/30/19 at 09:00 Epinephrine HCl (Adrenalin) 1 mg STK-MED ONCE .ROUTE ; Start 04/30/19 at 07:15; Stop 04/30/19 at 07:15; Status DC Lidocaine HCl (Lidocaine 1% 20ml Vial) 20 ml STK-MED ONCE .ROUTE ; Start 04/30/19 at 07:15; Stop 04/30/19 at 07:15; Status DC Lidocaine HCl (Lidocaine 2% Viscous) 100 ml STK-MED ONCE .ROUTE ; Start 04/30/19 at 07:15; Stop 04/30/19 at 07:15; Status DC Lidocaine HCl 50 ml STK-MED ONCE .ROUTE ; Start 04/30/19 at 07:15; Stop 04/30/19 at 07:15; Status DC Propofol (Diprivan) 400 mg STK-MED ONCE IV ; Start 04/30/19 at 12:00; Stop 04/30/19 at 13:32; Status DC Azithromycin 500 mg/Sodium Chloride 250 ml @ 250 mls/hr Q24H IV Last administered on 05/02/19at 14:56; Start 04/30/19 at 16:00; Stop 05/03/19 at 13:56; Status DC Ceftriaxone Sodium (Rocephin) 1 gm Q24H IVP Last administered on 05/04/19at 14:59; Start 04/30/19 at 16:00 Lactobacillus Rhamnosus (Culturelle) 1 cap BID PO Last administered on 05/05/19at 09:16; Start 05/01/19 at 10:00 Vitals/I & O Vital Sign - Last 24 Hours 05/04/19 05/04/19 05/04/19 05/04/19 15:00 16:58 19:00 19:41 Temp 98.1 97.5 98.1 97.5 Pulse 73 77 Resp 16 16 B/P (MAP) 118/76 (90) 119/65 (83) Pulse Ox 98 96 O2 Delivery Room Air Room Air Room Air Room Air 05/04/19 05/04/19 05/05/19 05/05/19 20:00 23:00 03:00 07:00 Temp 97.6 98.1 97.5 97.6 98.1 97.5 Pulse 93 71 75 Resp 16 16 16 B/P (MAP) 130/89 (103) 121/75 (90) 104/72 (83) Pulse Ox 98 97 97 O2 Delivery Room Air Room Air Room Air Room Air 05/05/19 05/05/19 05/05/19 07:41 08:00 10:59 Pulse Ox 96 96 O2 Delivery Room Air Room Air Room Air Intake and Output 05/04/19 05/04/19 05/05/19 14:59 22:59 06:59 Intake Total 440 ml 220 ml 400 ml Balance 440 ml 220 ml 400 ml BREANNA WEBSTER MD May 05, 2019 11:23
--- NOTE | 2019-05-05 12:19 | PDOC ---
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 No lesions NECK: Supple, no JVP, no lymphadenopathy. LUNGS: Diminished aeration right lung hendrickson, nonlabored HEART: S1, S2 regular. ABDOMEN: Soft and nontender EXTREMITIES: No edema, cyanosis. SKIN: without rash NEUROLOGIC: Alert, appropriate PIV Medications: Inpatient Meds: Current Medications Medications (Trade) Dose Ordered Sig/Clif Start Time Stop Time Status Last Admin Dose Admin Acetaminophen (Tylenol) 650 mg PRN Q4HRS PRN 04/29/19 13:30 05/03/19 07:56 650 MG Al Hydroxide/Mg Hydroxide (Mylanta Plus Xs) 30 ml PRN DAILY PRN 04/29/19 13:30 Albuterol Sulfate (Ventolin Neb Soln) 2.5 mg PRN 1X PRN 04/29/19 11:45 04/30/19 11:44 DC 04/30/19 08:59 2.5 MG Albuterol/ Ipratropium (Duoneb) 3 ml QID 04/30/19 09:00 05/05/19 10:58 3 ML Azithromycin 250 ml @ 250 mls/hr 1X ONCE 04/28/19 18:30 04/28/19 19:29 DC 04/28/19 18:47 250 MLS/HR Azithromycin 500 mg/Sodium Chloride 250 ml @ 250 mls/hr Q24H 04/30/19 16:00 05/03/19 13:56 DC 05/02/19 14:56 250 MLS/HR Ceftriaxone Sodium (Rocephin) 1 gm Q24H 04/30/19 16:00 05/04/19 14:59 1 GM Clonidine HCl (Catapres) 0.1 mg PRN Q6HRS PRN 04/29/19 13:30 Diphenhydramine HCl (Benadryl) 25 mg 1X ONCE 04/28/19 17:00 04/28/19 17:01 DC 04/28/19 17:24 25 MG Docusate Sodium (Colace) 100 mg PRN BID PRN 04/29/19 13:30 Enoxaparin Sodium (Lovenox 40mg Syringe) 40 mg DAILY 04/30/19 09:00 05/05/19 09:17 40 MG Epinephrine HCl (Adrenalin) 1 mg STK-MED ONCE 04/30/19 07:15 04/30/19 07:15 DC Fentanyl Citrate (Fentanyl 2ml Vial) 50 mcg PRN Q1HR PRN 04/28/19 19:30 04/29/19 19:29 DC Guaifenesin (Robitussin) 200 mg PRN Q4HRS PRN 04/29/19 13:30 Info (CONTRAST GIVEN -- Rx MONITORING) 1 each PRN DAILY PRN 04/29/19 09:30 05/01/19 09:29 DC Iohexol (Omnipaque 240 Mg/ml) 30 ml 1X ONCE 04/29/19 09:30 04/29/19 09:31 DC Iohexol (Omnipaque 300 Mg/ml) 75 ml 1X ONCE 04/29/19 09:30 04/29/19 09:31 DC 04/29/19 09:30 75 ML Iohexol (Omnipaque 350 Mg/ml) 90 ml 1X ONCE 04/28/19 18:45 04/28/19 18:46 DC 04/28/19 19:30 90 ML Ketorolac Tromethamine (Toradol 30mg Vial) 30 mg 1X ONCE 04/28/19 18:00 04/28/19 18:01 DC 04/28/19 18:46 30 MG Lactobacillus Rhamnosus (Culturelle) 1 cap BID 05/01/19 10:00 05/05/19 09:16 1 CAP Lidocaine HCl 50 ml STK-MED ONCE 04/30/19 07:15 04/30/19 07:15 DC Lidocaine HCl (Lidocaine 1% 20ml Vial) 20 ml STK-MED ONCE 04/30/19 07:15 04/30/19 07:15 DC Lidocaine HCl (Lidocaine 2% Viscous) 100 ml STK-MED ONCE 04/30/19 07:15 04/30/19 07:15 DC Lorazepam (Ativan) 0.5 mg PRN Q4HRS PRN 04/29/19 13:30 Magnesium Sulfate 100 ml @ 25 mls/hr 1X ONCE 04/29/19 09:00 04/29/19 12:59 DC 04/29/19 08:59 25 MLS/HR Ondansetron HCl (Zofran) 4 mg PRN Q4HRS PRN 04/29/19 13:30 Potassium Chloride (Klor-Con) 40 meq 1X ONCE 04/29/19 09:00 04/29/19 09:01 DC 04/29/19 08:56 40 MEQ Prochlorperazine Edisylate (Compazine) 10 mg 1X ONCE 04/28/19 17:00 04/28/19 17:01 DC 04/28/19 17:00 10 MG Propofol (Diprivan) 400 mg STK-MED ONCE 04/30/19 12:00 04/30/19 13:32 DC Ringer's Solution 1,000 ml @ 50 mls/hr Q20H 04/30/19 07:00 04/30/19 18:59 DC 04/30/19 08:00 50 MLS/HR Sodium Chloride 1,000 ml @ 100 mls/hr Q10H 04/29/19 13:20 05/04/19 17:43 100 MLS/HR Sodium Chloride (Normal Saline Flush) 3 ml QSHIFT PRN 04/29/19 13:30 Zolpidem Tartrate (Ambien) 5 mg PRN QHS PRN 04/29/19 13:30 Objective: Assessment: 1. Multiple nodular cavitary lesion in the right upper lobe etiology, possibilities are tuberculosis versus melioidosis, especially he is from [place]. -s/o bronchoscopy, 04/30. AF stain neg. bacterial culture neg - CT chest Cavitary lesion identified in the right upper lobe of the lung measuring 2.2 cm is unchanged. Nodular airspace opacities identified in the right upper lobe of the lung have increased in number and size compared to prior exam. There is interval increase in confluence of focal airspace opacity or mass identified in the inferior right upper lobe of the lung. New patchy nodular airspace opacities identified in the right lower lobe of the lung. 2. Weight loss. 3. Neck and back problems, chronic. 4. ? polycystic kidney disease on CT 5. T spot positive Plan: Plan of Care Continue Rocephin for now Off azithromycin Probiotics Awaiting CT guided lung biopsy tomorrow D/W Dr Nicolas D/w nursing MYLA EDUARDO MD May 05, 2019 12:19
[2019-05-05 15:00] VITALS: BP 130/79
--- NOTE | 2019-05-05 15:38 | NUR ---
hold [facility] 05/06/19 for lung biopsy.
[2019-05-05] MEDS: IV NORMAL SALINE 1000ML BAG 1,000 ML IV SCH ×2 (17:20→19:20)
[2019-05-05] MEDS: cefTRIAXone IV Push 1 GM VIAL. IVP SCH (17:20)
[2019-05-05 19:00] VITALS: BP 119/86
[2019-05-05 23:00] VITALS: BP 123/83
[2019-05-06] VITALS (17 sets, daily range): BP systolic 106–149; BP diastolic 67–96
[2019-05-06] MEDS: IV NORMAL SALINE 1000ML BAG 1,000 ML IV SCH ×3 (05:20→20:58)
--- NOTE | 2019-05-06 07:14 | PDOC ---
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 No lesions NECK: Supple, no JVP, no lymphadenopathy. LUNGS: Diminished aeration right lung hendrickson, nonlabored HEART: S1, S2 regular. ABDOMEN: Soft and nontender EXTREMITIES: No edema, cyanosis. SKIN: without rash NEUROLOGIC: Alert, appropriate PIV Medications: Inpatient Meds: Current Medications Medications (Trade) Dose Ordered Sig/Clif Start Time Stop Time Status Last Admin Dose Admin Acetaminophen (Tylenol) 650 mg PRN Q4HRS PRN 04/29/19 13:30 05/03/19 07:56 650 MG Al Hydroxide/Mg Hydroxide (Mylanta Plus Xs) 30 ml PRN DAILY PRN 04/29/19 13:30 Albuterol Sulfate (Ventolin Neb Soln) 2.5 mg PRN 1X PRN 04/29/19 11:45 04/30/19 11:44 DC 04/30/19 08:59 2.5 MG Albuterol/ Ipratropium (Duoneb) 3 ml QID 04/30/19 09:00 05/05/19 19:24 3 ML Azithromycin 250 ml @ 250 mls/hr 1X ONCE 04/28/19 18:30 04/28/19 19:29 DC 04/28/19 18:47 250 MLS/HR Azithromycin 500 mg/Sodium Chloride 250 ml @ 250 mls/hr Q24H 04/30/19 16:00 05/03/19 13:56 DC 05/02/19 14:56 250 MLS/HR Ceftriaxone Sodium (Rocephin) 1 gm Q24H 04/30/19 16:00 05/05/19 17:20 1 GM Clonidine HCl (Catapres) 0.1 mg PRN Q6HRS PRN 04/29/19 13:30 Diphenhydramine HCl (Benadryl) 25 mg 1X ONCE 04/28/19 17:00 04/28/19 17:01 DC 04/28/19 17:24 25 MG Docusate Sodium (Colace) 100 mg PRN BID PRN 04/29/19 13:30 Enoxaparin Sodium (Lovenox 40mg Syringe) 40 mg DAILY 04/30/19 09:00 05/05/19 09:17 40 MG Epinephrine HCl (Adrenalin) 1 mg STK-MED ONCE 04/30/19 07:15 04/30/19 07:15 DC Fentanyl Citrate (Fentanyl 2ml Vial) 50 mcg PRN Q1HR PRN 04/28/19 19:30 04/29/19 19:29 DC Guaifenesin (Robitussin) 200 mg PRN Q4HRS PRN 04/29/19 13:30 Info (CONTRAST GIVEN -- Rx MONITORING) 1 each PRN DAILY PRN 04/29/19 09:30 05/01/19 09:29 DC Iohexol (Omnipaque 240 Mg/ml) 30 ml 1X ONCE 04/29/19 09:30 04/29/19 09:31 DC Iohexol (Omnipaque 300 Mg/ml) 75 ml 1X ONCE 04/29/19 09:30 04/29/19 09:31 DC 04/29/19 09:30 75 ML Iohexol (Omnipaque 350 Mg/ml) 90 ml 1X ONCE 04/28/19 18:45 04/28/19 18:46 DC 04/28/19 19:30 90 ML Ketorolac Tromethamine (Toradol 30mg Vial) 30 mg 1X ONCE 04/28/19 18:00 04/28/19 18:01 DC 04/28/19 18:46 30 MG Lactobacillus Rhamnosus (Culturelle) 1 cap BID 05/01/19 10:00 05/05/19 22:36 1 CAP Lidocaine HCl 50 ml STK-MED ONCE 04/30/19 07:15 04/30/19 07:15 DC Lidocaine HCl (Lidocaine 1% 20ml Vial) 20 ml STK-MED ONCE 04/30/19 07:15 04/30/19 07:15 DC Lidocaine HCl (Lidocaine 2% Viscous) 100 ml STK-MED ONCE 04/30/19 07:15 04/30/19 07:15 DC Lorazepam (Ativan) 0.5 mg PRN Q4HRS PRN 04/29/19 13:30 Magnesium Sulfate 100 ml @ 25 mls/hr 1X ONCE 04/29/19 09:00 04/29/19 12:59 DC 04/29/19 08:59 25 MLS/HR Ondansetron HCl (Zofran) 4 mg PRN Q4HRS PRN 04/29/19 13:30 Potassium Chloride (Klor-Con) 40 meq 1X ONCE 04/29/19 09:00 04/29/19 09:01 DC 04/29/19 08:56 40 MEQ Prochlorperazine Edisylate (Compazine) 10 mg 1X ONCE 04/28/19 17:00 04/28/19 17:01 DC 04/28/19 17:00 10 MG Propofol (Diprivan) 400 mg STK-MED ONCE 04/30/19 12:00 04/30/19 13:32 DC Ringer's Solution 1,000 ml @ 50 mls/hr Q20H 04/30/19 07:00 04/30/19 18:59 DC 04/30/19 08:00 50 MLS/HR Sodium Chloride 1,000 ml @ 100 mls/hr Q10H 04/29/19 13:20 05/05/19 17:20 100 MLS/HR Sodium Chloride (Normal Saline Flush) 3 ml QSHIFT PRN 04/29/19 13:30 Zolpidem Tartrate (Ambien) 5 mg PRN QHS PRN 04/29/19 13:30 Objective: Assessment: 1. Multiple nodular cavitary lesion in the right upper lobe etiology, possibilities are tuberculosis versus melioidosis, especially he is from [place]. -s/o bronchoscopy, 04/30. AF stain neg. bacterial culture neg - CT chest Cavitary lesion identified in the right upper lobe of the lung measuring 2.2 cm is unchanged. Nodular airspace opacities identified in the right upper lobe of the lung have increased in number and size compared to prior exam. There is interval increase in confluence of focal airspace opacity or mass identified in the inferior right upper lobe of the lung. New patchy nodular airspace opacities identified in the right lower lobe of the lung. 2. Weight loss. 3. Neck and back problems, chronic. 4. ? polycystic kidney disease on CT 5. T spot positive Plan: Plan of Care Continue Rocephin for now Off azithromycin Probiotics Awaiting CT guided lung biopsy today D/w nursing MYLA EDUARDO MD May 06, 2019 07:14
[2019-05-06] MEDS: LACTOBACILLUS RHAMNOSUS GG 1 CAPSULE. PO SCH ×2 (09:00→20:55)
[2019-05-06] MEDS: IPRATRPIUM/ALBUTEROL 0.5/2.5MG 3 ML NEBU. NEB SCH ×5 (09:00→20:03)
--- NOTE | 2019-05-06 09:04 | PDOC ---
PULMONARY PROGRESS NOTES Subjective NO NEW COMPLAINTS [employer] ROBOTICIST FROM [facility] INTERPRET Vitals Vital Signs Date Time Temp Pulse Resp B/P (MAP) Pulse Ox O2 Delivery O2 Flow Rate FiO2 05/06/19 07:00 97.7 68 16 132/82 (99) 93 Room Air 97.7 General: Alert, No acute distress Lungs: Clear Cardiovascular: S1 Abdomen: Soft Neuro Exam: Alert Extremities: No Edema Skin: Warm Impression . IMPRESSION: 1. Multiple right upper lobe nodules, largest of them is 2.2 cm WORK UP PROGRESS 2. s/p bronchoscopy , off isolation, AFB smear neg Plan . WILL AWAIT FNA RESULTS ANTIBX PER ID SO FAR ALL CULTURES NEGATIVE SHEILA BAUER MD May 06, 2019 09:04
--- NOTE | 2019-05-06 09:22 | PDOC ---
PROGRESS NOTES Chief Complaint Chief Complaint pulmonary nodules clustered in the right upper lobe one of which is cavitary. Cavitary lesion identified in the right upper lobe of the lung measuring 2.2 cm is unchanged. Nodular airspace opacities identified in the right upper lobe of the lung have increased in number and size compared to prior exam. There is interval increase in confluence of focal airspace opacity or mass severe protein-caloric malnutrition polycystic kidney disease clinical picture is much more indicative of infectious process rather than neoplasm or Tiffanie's. 05/06 CT guided lung biopsy WILL AWAIT FNA RESULTS 36 MIN PT EXAM, CHART REVIEW, > 50% OF PT EXAM, CHART REVIEW, PT CARE COORDIN ATION 28 MIN PT EXAM, CHART REVIEW, > 50% OF TIME spent with pt exam, chart review, pt care coordination History of Present Illness History of Present Illness PULM CONSULT following, s/p bronch 04/30, IR planned biopsy AFB neg 04/30 CT CHESt/ ABD/ PELVIS Mr Belcher is a 34-year-old male from [facility] who does not speak Green[place]ic. 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 According to him, the patient was brought into the hospital as he was complaining of dizziness. He does not complain of much cough, fever or night sweats. He does not know whether he had a PPD done when he arrived in [place] 3 years ago. There are no obvious TB exposures. The patient underwent chest x-ray, which was abnormal with infiltrate in the right upper lobe. As a result, he underwent CTA chest. He had numerous nodules in the right upper lobe, largest of them is in the right lung apex, which is cavitary in about 2.2 cm in size. The patient was started on antibiotic Rocephin along with Zithromax. He underwent bronchoscopy 04/30/19 with acid fast staining, being seen by pulmonology and ID. He states he has been told he has kidney, liver, and lung disease previously. I asked the [facility] person that speaks Cook Islander (Si Gretel) to translate, which was helpful, but patient spoke another version of [place]er,but patients family was able to understand Si Gretel and translate and we got the consent signed, some difficulty in explaining risks, Vitals Vitals Vital Signs Date Time Temp Pulse Resp B/P (MAP) Pulse Ox O2 Delivery O2 Flow Rate FiO2 05/06/19 07:15 Room Air 05/06/19 07:00 97.7 68 16 132/82 (99 93 97.7 Physical Exam Physical Exam GENERAL: Propped up in bed, alert, NAD HEENT: Pupils equal, oral cavity pink, mosist. No lesions NECK: Supple, no JVP, no lymphadenopathy. LUNGS: Diminished aeration right lung hendrickson, nonlabored HEART: S1, S2 regular. ABDOMEN: Soft and nontender EXTREMITIES: No edema, cyanosis. SKIN: without rash NEUROLOGIC: Alert, appropriate PIV General: Alert, Oriented X3, Cooperative, No acute distress Heart: Regular rate, Normal S1 Lungs: Clear Abdomen: Normal bowel sounds, Soft, No tenderness, No hepatosplenomegaly Extremities: No cyanosis Labs LABS Examination: CT chest without contrast HISTORY: History of cavitary mass COMPARISON: 04/28/2019 TECHNIQUE: Axial CT images of the chest were performed without contrast. Coronal and sagittal reformats are performed Exposure: One or more of the following individualized dose reduction techniques were utilized for this examination: 1. Automated exposure control 2. Adjustment of the mA and/or kV according to patient size 3. Use of iterative reconstruction technique FINDINGS: The visualized thyroid gland grossly appears unremarkable. The central airways are patent. The ascending aorta measures 3.6 cm in transverse dimension. The heart size grossly appears unremarkable. Cavitary lesion identified in the right upper lobe of the lung measuring 2.2 cm is unchanged. Nodular airspace opacities identified in the right upper lobe of the lung have increased in number and size compared to prior exam. There is interval increase in confluence of focal airspace opacity or mass identified in the inferior right upper lobe of the lung. New patchy nodular airspace opacities identified in the right lower lobe of the lung. Small bilateral pleural effusions identified Examination limited due to lack of IV contrast. Subcentimeter mediastinal lymph nodes are unchanged. The visualized noncontrasted liver, spleen, adrenals grossly appears unremarkable. Cystic structures identified in the bilateral kidneys partially visualized. Partially visualized tiny intrarenal collecting system calculi identified in the left kidney. IMPRESSION: 1. Cavitary lesion identified in the right upper lobe of the lung measuring 2.2 cm is unchanged. Nodular airspace opacities identified in the right upper lobe of the lung have increased in number and size compared to prior exam. There is interval increase in confluence of focal airspace opacity or mass identified in the inferior right upper lobe of the lung. New patchy nodular airspace opacities identified in the right lower lobe of the lung. Differential includes includes infectious/inflammatory etiology or neoplasm. Electronically signed by: Serge Nolan MD (05/05/2019 9:53 AM) [id number] DICTATED and SIGNED BY: SERGE NOLAN MD DATE: 05/05/19 0953 SPEC #: [id number] MICHAELA: 04/30/19 STATUS: RES REQ #: [id number] RECD: 04/30/19 [facility] DR: MARTHA MARCOS MD SOURCE: [place] ENTR: [id number]/30/[id number] OTHR DR: ALISA EDUARDO MD SPDESC: RT UPP SHEILA MARTINEZ MD UNKNOWN PCP NAME ORDERED: AFB CULT, LUPE CULT,OTHER COMMENTS: AJ OLSON Procedure Result AFB SPECIMEN PROCESSING Final Concentration AFB CULTURE FINAL PENDING AFB CULTURE GRAM STAIN Final Negative Performed at: DA - [facility] [address], [place], [place] [id number] Corporate Licensed Broker: MANDI Stovall MD, Phone: [phone] FUNGAL CULTURE,OTHER PENDING LUPE CULT RES 1 PENDING Assessment and Plan Assessmemt and Plan Problems Medical Problems: (1) Dizziness Status: Acute (2) Head pain Status: Acute Comment Review of Relevant I have reviewed the following items analilia (where applicable) has been applied. Labs Microbiology 04/30/19 AFB Specimen Processing Tissue - Final, Resulted 04/30/19 Acid Fast Bacilli Culture, Resulted Pending 04/30/19 Gram Stain - Final, Resulted 04/30/19 Fungal Culture, Resulted Pending 04/30/19 Fungal Culture Result 1, Resulted Pending 04/28/19 Blood Culture - Final, Complete NO GROWTH AFTER 5 DAYS Medications Current Medications Prochlorperazine Edisylate (Compazine) 10 mg 1X ONCE IV Last administered on 04/28/19at 17:00; Start 04/28/19 at 17:00; Stop 04/28/19 at 17:01; Status DC Diphenhydramine HCl (Benadryl) 25 mg 1X ONCE IVP Last administered on 04/28/19at 17:24; Start 04/28/19 at 17:00; Stop 04/28/19 at 17:01; Status DC Sodium Chloride 1,000 ml @ 1,000 mls/hr 1X ONCE IV Last administered on 04/28/19at 17:23; Start 04/28/19 at 17:00; Stop 04/28/19 at 17:59; Status DC Potassium Chloride (Klor-Con) 20 meq 1X ONCE PO Last administered on 04/28/19at 18:47; Start 04/28/19 at 18:00; Stop 04/28/19 at 18:01; Status DC Ketorolac Tromethamine (Toradol 30mg Vial) 30 mg 1X ONCE IVP Last administered on 04/28/19at 18:46; Start 04/28/19 at 18:00; Stop 04/28/19 at 18:01; Status DC Azithromycin 250 ml @ 250 mls/hr 1X ONCE IV Last administered on 04/28/19at 18:47; Start 04/28/19 at 18:30; Stop 04/28/19 at 19:29; Status DC Ceftriaxone Sodium (Rocephin) 1 gm 1X ONCE IVP Last administered on 04/28/19at 18:47; Start 04/28/19 at 18:30; Stop 04/28/19 at 18:31; Status DC Iohexol (Omnipaque 350 Mg/ml) 90 ml 1X ONCE IV Last administered on 04/28/19at 19:30; Start 04/28/19 at 18:45; Stop 04/28/19 at 18:46; Status DC Info (CONTRAST GIVEN -- Rx MONITORING) 1 each PRN DAILY PRN MC SEE COMMENTS; Start 04/28/19 at 18:45; Stop 04/29/19 at 09:29; Status DC Ondansetron HCl (Zofran) 4 mg PRN Q8HRS PRN IV NAUSEA/VOMITING; Start 04/28/19 at 19:30; Stop 04/29/19 at 13:28; Status DC Fentanyl Citrate (Fentanyl 2ml Vial) 50 mcg PRN Q1HR PRN IV PAIN; Start 04/28/19 at 19:30; Stop 04/29/19 at 19:29; Status DC Acetaminophen (Tylenol) 650 mg PRN Q4HRS PRN PO FEVER; Start 04/28/19 at 19:30; Stop 04/29/19 at 19:29; Status DC Magnesium Sulfate 100 ml @ 25 mls/hr 1X ONCE IV Last administered on 04/29/19at 08:59; Start 04/29/19 at 09:00; Stop 04/29/19 at 12:59; Status DC Potassium Chloride (Klor-Con) 40 meq 1X ONCE PO Last administered on 04/29/19at 08:56; Start 04/29/19 at 09:00; Stop 04/29/19 at 09:01; Status DC Iohexol (Omnipaque 300 Mg/ml) 75 ml 1X ONCE IV Last administered on 04/29/19at 09:30; Start 04/29/19 at 09:30; Stop 04/29/19 at 09:31; Status DC Iohexol (Omnipaque 240 Mg/ml) 30 ml 1X ONCE PO ; Start 04/29/19 at 09:30; Stop 04/29/19 at 09:31; Status DC Info (CONTRAST GIVEN -- Rx MONITORING) 1 each PRN DAILY PRN MC SEE COMMENTS; Start 04/29/19 at 09:30; Stop 05/01/19 at 09:29; Status DC Albuterol Sulfate (Ventolin Neb Soln) 2.5 mg PRN 1X PRN NEB SHORTNESS OF BREATH Last administered on 04/30/19at 08:59; Start 04/29/19 at 11:45; Stop 04/30/19 at 11:44; Status DC Lidocaine HCl (Lidocaine 2% Viscous) 100 ml PRN 1X PRN MM MOUTH PAIN Last administered on 04/30/19at 09:00; Start 04/29/19 at 11:45; Stop 04/30/19 at 11:44; Status DC Lidocaine HCl (Lidocaine 1% 20ml Vial) 20 ml PRN 1X PRN INJ SEE COMMENTS Last administered on 04/30/19at 09:00; Start 04/29/19 at 11:45; Stop 04/30/19 at 11:44; Status DC Epinephrine HCl (Adrenalin) 1 mg PRN 1X PRN INJ SEE COMMENTS; Start 04/29/19 at 11:45; Stop 04/30/19 at 11:44; Status DC Lidocaine HCl 50 ml PRN 1X PRN MM SEE COMMENTS Last administered on 04/30/19at 09:00; Start 04/29/19 at 11:45; Stop 04/30/19 at 11:44; Status DC Ringer's Solution 1,000 ml @ 50 mls/hr Q20H IV Last administered on 04/30/19at 08:00; Start 04/30/19 at 07:00; Stop 04/30/19 at 18:59; Status DC Sodium Chloride (Normal Saline Flush) 3 ml QSHIFT PRN IV AFTER MEDS AND BLOOD DRAWS; Start 04/29/19 at 13:30 Sodium Chloride 1,000 ml @ 100 mls/hr Q10H IV Last administered on 05/06/19at 08:31; Start 04/29/19 at 13:20 Ondansetron HCl (Zofran) 4 mg PRN Q4HRS PRN IV NAUSEA/VOMITING; Start 04/29/19 at 13:30 Zolpidem Tartrate (Ambien) 5 mg PRN QHS PRN PO INSOMNIA; Start 04/29/19 at 13:30 Acetaminophen (Tylenol) 650 mg PRN Q4HRS PRN PO TEMP OVER 100.4F OR MILD PAIN Last administered on 05/03/19at 07:56; Start 04/29/19 at 13:30 Al Hydroxide/Mg Hydroxide (Mylanta Plus Xs) 30 ml PRN DAILY PRN PO HEARTBURN / GAS; Start 04/29/19 at 13:30 Clonidine HCl (Catapres) 0.1 mg PRN Q6HRS PRN PO SBP>160 OR DBP>90; Start 04/29/19 at 13:30 Docusate Sodium (Colace) 100 mg PRN BID PRN PO HARD STOOLS; Start 04/29/19 at 13:30 Albuterol/ Ipratropium (Duoneb) 3 ml Q4H NEB Last administered on 04/29/19at 19:59; Start 04/29/19 at 13:30; Stop 04/29/19 at 20:06; Status DC Guaifenesin (Robitussin) 200 mg PRN Q4HRS PRN PO COUGH; Start 04/29/19 at 13 :30 Lorazepam (Ativan) 0.5 mg PRN Q4HRS PRN PO ANXIETY / AGITATION; Start 04/29/19 at 13:30 Enoxaparin Sodium (Lovenox 40mg Syringe) 40 mg DAILY SQ Last administered on 05/05/19at 09:17; Start 04/30/19 at 09:00 Albuterol/ Ipratropium (Duoneb) 3 ml QID NEB Last administered on 05/05/19at 19:24; Start 04/30/19 at 09:00 Epinephrine HCl (Adrenalin) 1 mg STK-MED ONCE .ROUTE ; Start 04/30/19 at 07:15; Stop 04/30/19 at 07:15; Status DC Lidocaine HCl (Lidocaine 1% 20ml Vial) 20 ml STK-MED ONCE .ROUTE ; Start 04/30/19 at 07:15; Stop 04/30/19 at 07:15; Status DC Lidocaine HCl (Lidocaine 2% Viscous) 100 ml STK-MED ONCE .ROUTE ; Start 04/30/19 at 07:15; Stop 04/30/19 at 07:15; Status DC Lidocaine HCl 50 ml STK-MED ONCE .ROUTE ; Start 04/30/19 at 07:15; Stop 04/30/19 at 07:15; Status DC Propofol (Diprivan) 400 mg STK-MED ONCE IV ; Start 04/30/19 at 12:00; Stop 04/30/19 at 13:32; Status DC Azithromycin 500 mg/Sodium Chloride 250 ml @ 250 mls/hr Q24H IV Last administered on 05/02/19at 14:56; Start 04/30/19 at 16:00; Stop 05/03/19 at 13:56; Status DC Ceftriaxone Sodium (Rocephin) 1 gm Q24H IVP Last administered on 05/05/19at 1 7:20; Start 04/30/19 at 16:00 Lactobacillus Rhamnosus (Culturelle) 1 cap BID PO Last administered on 05/05/19at 22:36; Start 05/01/19 at 10:00 Vitals/I & O Vital Sign - Last 24 Hours 05/05/19 05/05/19 05/05/19 05/05/19 07:41 08:00 10:59 11:00 Temp 98.1 98.1 Pulse 63 Resp 16 B/P (MAP) 130/90 (103) Pulse Ox 96 96 98 O2 Delivery Room Air Room Air Room Air Room Air 05/05/19 05/05/19 05/05/19 05/05/19 15:00 19:00 19:25 19:30 Temp 98.0 97.4 98.0 97.4 Pulse 71 75 Resp 16 16 B/P (MAP) 130/79 (96) 119/86 (97) Pulse Ox 98 97 O2 Delivery Room Air Room Air Room Air Room Air 05/05/19 05/06/19 05/06/19 05/06/19 23:00 03:00 07:00 07:15 Temp 97.7 98.0 97.7 97.7 98.0 97.7 Pulse 69 66 68 Resp 16 16 16 B/P (MAP) 123/83 (96) 127/70 (89) 132/82 (99) Pulse Ox 96 97 93 O2 Delivery Room Air Room Air Room Air Room Air Intake and Output 05/05/19 05/06/19 05/06/19 17:00 01:00 09:00 Intake Total 640 ml 1320 ml Balance 640 ml 1320 ml NASRA GAN MD May 06, 2019 09:22
--- NOTE | 2019-05-06 10:56 | NUR ---
SW following. Discussed with RN, pt having a CT guided lung biopsy today. SW will continue to follow for any discharge planning needs.
[2019-05-06 11:01] LABS: BASO % 0 % (0-3); EOS # 0.3 x10^3/uL (0.0-0.7); EOS % 5 % (0-3); HEMATOCRIT 44.2 % (39.0-53.0); HEMOGLOBIN 15.1 g/dL (13.0-17.5); LYMPH # 1.5 x10^3/uL (1.0-4.8); LYMPH % 32 % (24-48); MEAN CORPUSCULAR HEMOGLOBIN 28 pg (25-35); MEAN CORPUSCULAR HGB CONC 34 g/dL (31-37); MEAN CORPUSCULAR VOLUME 81 fL (79-100); MONO # 0.3 x10^3/uL (0.0-1.1); MONO % 7 % (0-9); NEUT # 2.7 x10^3/uL (1.8-7.7); NEUT % 56 % (31-73); PLATELET COUNT 177 x10^3/uL (140-400); RED BLOOD COUNT 5.45 x10^6/uL (4.30-5.70); RED CELL DISTRIBUTION WIDTH 13.6 % (11.5-14.5); WHITE BLOOD COUNT 4.7 x10^3/uL (4.0-11.0)
[2019-05-06 11:12] LABS: ALBUMIN 3.1 g/dL (3.4-5.0); ALBUMIN/GLOBULIN RATIO 0.7 (1.0-1.7); CALCIUM 8.5 mg/dL (8.5-10.1); CREATININE 0.7 mg/dL (0.7-1.3); GFR 129.9; POTASSIUM 3.6 mmol/L (3.5-5.1); TOTAL BILIRUBIN 0.4 mg/dL (0.2-1.0); TOTAL PROTEIN 7.5 g/dL (6.4-8.2)
[2019-05-06] MEDS ORDERED: fentaNYL PF VIAL 100 MCG/2 ML VIAL ONE (12:57)
[2019-05-06] MEDS ORDERED: MIDAZOLAM HCL/PF 2 MG/2 ML VIAL. ONE (12:57)
[2019-05-06] MEDS ORDERED: LIDOCAINE WITH 8.4% SOD BICARB 3 ML DISP.SYRIN. ONE (12:58)
[2019-05-06] MEDS ORDERED: fentaNYL PF VIAL 100 MCG/2 ML VIAL IV ONE (13:30)
[2019-05-06] MEDS ORDERED: MIDAZOLAM HCL/PF 2 MG/2 ML VIAL. IV ONE (13:30)
[2019-05-06] MEDS ORDERED: LIDOCAINE WITH 8.4% SOD BICARB 3 ML DISP.SYRIN. IJ ONE (13:30)
[2019-05-06] MEDS: cefTRIAXone IV Push 1 GM VIAL. IVP SCH (16:22)
--- NOTE | 2019-05-06 16:39 | RAD ---
Single view of the chest. 05/06/2019 3:30 PM Indication: Post lung biopsy Comparison: Chest radiograph May 02, 2019 Findings: Mild perilesional hemorrhage is seen involving the inferior, masslike consolidation. Partially cavitary lesion in the more superior right upper lobe is stable. No pneumothorax is identified. No pleural effusion or pneumothorax is seen. Heart size. Left is grossly clear. Bony thorax is grossly intact. IMPRESSION: Mild perilesional hemorrhage without pneumothorax . Otherwise stable chest. . Electronically signed by: Nasim Cueto MD (05/06/2019 4:36 PM) [id number]
[2019-05-06] MEDS: ACETAMINOPHEN 325 MG TABLET. PO PRN (20:55)
[2019-05-07 02:56] VITALS: BP 104/66
[2019-05-07] MEDS: IV NORMAL SALINE 1000ML BAG 1,000 ML IV SCH (06:12)
[2019-05-07 07:00] VITALS: BP 140/96
[2019-05-07] MEDS: IPRATRPIUM/ALBUTEROL 0.5/2.5MG 3 ML NEBU. NEB SCH ×4 (07:45→19:24)
[2019-05-07] MEDS: LACTOBACILLUS RHAMNOSUS GG 1 CAPSULE. PO SCH ×2 (08:31→20:47)
[2019-05-07] MEDS: ENOXAPARIN 40 MG/0.4 ML SYRINGE. SQ SCH (08:31)
--- NOTE | 2019-05-07 08:47 | PDOC ---
Infectious Disease Note Subjective: Subjective Doing ok No complaints Vital Signs: Vital Signs Vital Signs Date Time Temp Pulse Resp B/P (MAP) Pulse Ox O2 Delivery O2 Flow Rate FiO2 05/07/19 07:47 96 Room Air 05/07/19 07:00 97.8 97 16 140/96 (111) 97.8 05/06/19 13:36 2.0 Physical Exam: PHYSICAL EXAM GENERAL: Propped up in bed, alert, NAD HEENT: Pupils equal, oral cavity pink, mosist. No lesions NECK: Supple, no JVP, no lymphadenopathy. LUNGS: Diminished aeration right lung hendrickson, nonlabored HEART: S1, S2 regular. ABDOMEN: Soft and nontender EXTREMITIES: No edema, cyanosis. SKIN: without rash NEUROLOGIC: Alert, appropriate PIV Medications: Inpatient Meds: Current Medications Medications (Trade) Dose Ordered Sig/Clif Start Time Stop Time Status Last Admin Dose Admin Acetaminophen (Tylenol) 650 mg PRN Q4HRS PRN 04/29/19 13:30 05/06/19 20:55 650 MG Al Hydroxide/Mg Hydroxide (Mylanta Plus Xs) 30 ml PRN DAILY PRN 04/29/19 13:30 Albuterol Sulfate (Ventolin Neb Soln) 2.5 mg PRN 1X PRN 04/29/19 11:45 04/30/19 11:44 DC 04/30/19 08:59 2.5 MG Albuterol/ Ipratropium (Duoneb) 3 ml QID 04/30/19 09:00 05/07/19 07:45 3 ML Azithromycin 250 ml @ 250 mls/hr 1X ONCE 04/28/19 18:30 04/28/19 19:29 DC 04/28/19 18:47 250 MLS/HR Azithromycin 500 mg/Sodium Chloride 250 ml @ 250 mls/hr Q24H 04/30/19 16:00 05/03/19 13:56 DC 05/02/19 14:56 250 MLS/HR Ceftriaxone Sodium (Rocephin) 1 gm Q24H 04/30/19 16:00 05/06/19 16:22 1 GM Clonidine HCl (Catapres) 0.1 mg PRN Q6HRS PRN 04/29/19 13:30 Diphenhydramine HCl (Benadryl) 25 mg 1X ONCE 04/28/19 17:00 04/28/19 17:01 DC 04/28/19 17:24 25 MG Docusate Sodium (Colace) 100 mg PRN BID PRN 04/29/19 13:30 Enoxaparin Sodium (Lovenox 40mg Syringe) 40 mg DAILY 04/30/19 09:00 05/07/19 08:31 40 MG Epinephrine HCl (Adrenalin) 1 mg STK-MED ONCE 04/30/19 07:15 04/30/19 07:15 DC Fentanyl Citrate (Fentanyl 2ml Vial) 50 mcg 1X ONCE 05/06/19 13:30 05/06/19 13:34 DC 05/06/19 13:34 50 MCG Guaifenesin (Robitussin) 200 mg PRN Q4HRS PRN 04/29/19 13:30 Info (CONTRAST GIVEN -- Rx MONITORING) 1 each PRN DAILY PRN 04/29/19 09:30 05/01/19 09:29 DC Iohexol (Omnipaque 240 Mg/ml) 30 ml 1X ONCE 04/29/19 09:30 04/29/19 09:31 DC Iohexol (Omnipaque 300 Mg/ml) 75 ml 1X ONCE 04/29/19 09:30 04/29/19 09:31 DC 04/29/19 09:30 75 ML Iohexol (Omnipaque 350 Mg/ml) 90 ml 1X ONCE 04/28/19 18:45 04/28/19 18:46 DC 04/28/19 19:30 90 ML Ketorolac Tromethamine (Toradol 30mg Vial) 30 mg 1X ONCE 04/28/19 18:00 04/28/19 18:01 DC 04/28/19 18:46 30 MG Lactobacillus Rhamnosus (Culturelle) 1 cap BID 05/01/19 10:00 05/07/19 08:31 1 CAP Lidocaine HCl (Buffered Lidocaine 1%) 6 ml 1X ONCE 05/06/19 13:30 05/06/19 13:34 DC 05/06/19 13:30 6 ML Lidocaine HCl (Lidocaine 1% 20ml Vial) 20 ml STK-MED ONCE 04/30/19 07:15 04/30/19 07:15 DC Lidocaine HCl (Lidocaine 2% Viscous) 100 ml STK-MED ONCE 04/30/19 07:15 04/30/19 07:15 DC Lorazepam (Ativan) 0.5 mg PRN Q4HRS PRN 04/29/19 13:30 Magnesium Sulfate 100 ml @ 25 mls/hr 1X ONCE 04/29/19 09:00 04/29/19 12:59 DC 04/29/19 08:59 25 MLS/HR Midazolam HCl (Versed) 1 mg 1X ONCE 05/06/19 13:30 05/06/19 13:34 DC 05/06/19 13:14 1 MG Ondansetron HCl (Zofran) 4 mg PRN Q4HRS PRN 04/29/19 13:30 Potassium Chloride (Klor-Con) 40 meq 1X ONCE 04/29/19 09:00 04/29/19 09:01 DC 04/29/19 08:56 40 MEQ Prochlorperazine Edisylate (Compazine) 10 mg 1X ONCE 04/28/19 17:00 04/28/19 17:01 DC 04/28/19 17:00 10 MG Propofol (Diprivan) 400 mg STK-MED ONCE 04/30/19 12:00 04/30/19 13:32 DC Ringer's Solution 1,000 ml @ 50 mls/hr Q20H 04/30/19 07:00 04/30/19 18:59 DC 04/30/19 08:00 50 MLS/HR Sodium Chloride 1,000 ml @ 100 mls/hr Q10H 04/29/19 13:20 05/07/19 06:12 100 MLS/HR Sodium Chloride (Normal Saline Flush) 3 ml QSHIFT PRN 04/29/19 13:30 Zolpidem Tartrate (Ambien) 5 mg PRN QHS PRN 04/29/19 13:30 Labs: Lab Laboratory Tests Test 05/06/19 10:35 White Blood Count 4.7 x10^3/uL (4.0-11.0) Red Blood Count 5.45 x10^6/uL (4.30-5.70) Hemoglobin 15.1 g/dL (13.0-17.5) Hematocrit 44.2 % (39.0-53.0) Mean Corpuscular Volume 81 fL (79-100) Mean Corpuscular Hemoglobin 28 pg (25-35) Mean Corpuscular Hemoglobin Concent 34 g/dL (31-37) Red Cell Distribution Width 13.6 % (11.5-14.5) Platelet Count 177 x10^3/uL (140-400) Neutrophils (%) (Auto) 56 % (31-73) Lymphocytes (%) (Auto) 32 % (24-48) Monocytes (%) (Auto) 7 % (0-9) Eosinophils (%) (Auto) 5 % (0-3) Basophils (%) (Auto) 0 % (0-3) Neutrophils # (Auto) 2.7 x10^3/uL (1.8-7.7) Lymphocytes # (Auto) 1.5 x10^3/uL (1.0-4.8) Monocytes # (Auto) 0.3 x10^3/uL (0.0-1.1) Eosinophils # (Auto) 0.3 x10^3/uL (0.0-0.7) Basophils # (Auto) 0.0 x10^3/uL (0.0-0.2) Sodium Level 140 mmol/L (136-145) Potassium Level 3.6 mmol/L (3.5-5.1) Chloride Level 105 mmol/L (98-107) Carbon Dioxide Level 27 mmol/L (21-32) Anion Gap 8 (6-14) Blood Urea Nitrogen 12 mg/dL (8-26) Creatinine 0.7 mg/dL (0.7-1.3) Estimated GFR (Cockcroft-Gault) 129.9 BUN/Creatinine Ratio 17 (6-20) Glucose Level 87 mg/dL (70-99) Calcium Level 8.5 mg/dL (8.5-10.1) Total Bilirubin 0.4 mg/dL (0.2-1.0) Aspartate Amino Transf (AST/SGOT) 48 U/L (15-37) Alanine Aminotransferase (ALT/SGPT) 64 U/L (16-63) Alkaline Phosphatase 109 U/L (46-116) Total Protein 7.5 g/dL (6.4-8.2) Albumin 3.1 g/dL (3.4-5.0) Albumin/Globulin Ratio 0.7 (1.0-1.7) Objective: Assessment: 1. Multiple nodular cavitary lesion in the right upper lobe etiology, possibilities are tuberculosis versus melioidosis, especially [place] is [place]. -s/o bronchoscopy, 04/30. AF stain neg. bacterial culture neg - CT chest Cavitary lesion identified in the right upper lobe of the lung measuring 2.2 cm is unchanged. Nodular airspace opacities identified in the right upper lobe of the lung have increased in number and size compared to prior exam. There is interval increase in confluence of focal airspace opacity or mass identified in the inferior right upper lobe of the lung. New patchy nodular airspace opacities identified in the right lower lobe of the lung. s/p ct guided biospy 05/06 2. Weight loss. 3. Neck and back problems, chronic. 4. ? polycystic kidney disease on CT 5. T spot positive Plan: Plan of Care start empiric ceftazidime 2gm IV Q6hrs Dc Rocephin for now Off azithromycin Probiotics f/u path report D/w nursing MYLA EDUARDO MD May 07, 2019 08:47
[2019-05-07] MEDS ORDERED: HYDROcodone/APAP 5/325MG 1 TAB TABLET PO PRN (09:15)
--- NOTE | 2019-05-07 09:27 | PDOC ---
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 [facility] Vitals Vital Signs Date Time Temp Pulse Resp B/P (MAP) Pulse Ox O2 Delivery O2 Flow Rate FiO2 05/07/19 07:47 96 Room Air 05/07/19 07:00 97.8 97 16 140/96 (111) 97.8 05/06/19 13:36 2.0 General: Alert, No acute distress Lungs: Clear Cardiovascular: S1 Abdomen: Soft Neuro Exam: Alert Extremities: No Edema Skin: Warm Labs Laboratory Tests Test 05/06/19 10:35 White Blood Count 4.7 x10^3/uL (4.0-11.0) Red Blood Count 5.45 x10^6/uL (4.30-5.70) Hemoglobin 15.1 g/dL (13.0-17.5) Hematocrit 44.2 % (39.0-53.0) Mean Corpuscular Volume 81 fL (79-100) Mean Corpuscular Hemoglobin 28 pg (25-35) Mean Corpuscular Hemoglobin Concent 34 g/dL (31-37) Red Cell Distribution Width 13.6 % (11.5-14.5) Platelet Count 177 x10^3/uL (140-400) Neutrophils (%) (Auto) 56 % (31-73) Lymphocytes (%) (Auto) 32 % (24-48) Monocytes (%) (Auto) 7 % (0-9) Eosinophils (%) (Auto) 5 % (0-3) Basophils (%) (Auto) 0 % (0-3) Neutrophils # (Auto) 2.7 x10^3/uL (1.8-7.7) Lymphocytes # (Auto) 1.5 x10^3/uL (1.0-4.8) Monocytes # (Auto) 0.3 x10^3/uL (0.0-1.1) Eosinophils # (Auto) 0.3 x10^3/uL (0.0-0.7) Basophils # (Auto) 0.0 x10^3/uL (0.0-0.2) Sodium Level 140 mmol/L (136-145) Potassium Level 3.6 mmol/L (3.5-5.1) Chloride Level 105 mmol/L (98-107) Carbon Dioxide Level 27 mmol/L (21-32) Anion Gap 8 (6-14) Blood Urea Nitrogen 12 mg/dL (8-26) Creatinine 0.7 mg/dL (0.7-1.3) Estimated GFR (Cockcroft-Gault) 129.9 BUN/Creatinine Ratio 17 (6-20) Glucose Level 87 mg/dL (70-99) Calcium Level 8.5 mg/dL (8.5-10.1) Total Bilirubin 0.4 mg/dL (0.2-1.0) Aspartate Amino Transf (AST/SGOT) 48 U/L (15-37) Alanine Aminotransferase (ALT/SGPT) 64 U/L (16-63) Alkaline Phosphatase 109 U/L (46-116) Total Protein 7.5 g/dL (6.4-8.2) Albumin 3.1 g/dL (3.4-5.0) Albumin/Globulin Ratio 0.7 (1.0-1.7) Laboratory Tests Test 05/06/19 10:35 White Blood Count 4.7 x10^3/uL (4.0-11.0) Red Blood Count 5.45 x10^6/uL (4.30-5.70) Hemoglobin 15.1 g/dL (13.0-17.5) Hematocrit 44.2 % (39.0-53.0) Mean Corpuscular Volume 81 fL (79-100) Mean Corpuscular Hemoglobin 28 pg (25-35) Mean Corpuscular Hemoglobin Concent 34 g/dL (31-37) Red Cell Distribution Width 13.6 % (11.5-14.5) Platelet Count 177 x10^3/uL (140-400) Neutrophils (%) (Auto) 56 % (31-73) Lymphocytes (%) (Auto) 32 % (24-48) Monocytes (%) (Auto) 7 % (0-9) Eosinophils (%) (Auto) 5 % (0-3) Basophils (%) (Auto) 0 % (0-3) Neutrophils # (Auto) 2.7 x10^3/uL (1.8-7.7) Lymphocytes # (Auto) 1.5 x10^3/uL (1.0-4.8) Monocytes # (Auto) 0.3 x10^3/uL (0.0-1.1) Eosinophils # (Auto) 0.3 x10^3/uL (0.0-0.7) Basophils # (Auto) 0.0 x10^3/uL (0.0-0.2) Sodium Level 140 mmol/L (136-145) Potassium Level 3.6 mmol/L (3.5-5.1) Chloride Level 105 mmol/L (98-107) Carbon Dioxide Level 27 mmol/L (21-32) Anion Gap 8 (6-14) Blood Urea Nitrogen 12 mg/dL (8-26) Creatinine 0.7 mg/dL (0.7-1.3) Estimated GFR (Cockcroft-Gault) 129.9 BUN/Creatinine Ratio 17 (6-20) Glucose Level 87 mg/dL (70-99) Calcium Level 8.5 mg/dL (8.5-10.1) Total Bilirubin 0.4 mg/dL (0.2-1.0) Aspartate Amino Transf (AST/SGOT) 48 U/L (15-37) Alanine Aminotransferase (ALT/SGPT) 64 U/L (16-63) Alkaline Phosphatase 109 U/L (46-116) Total Protein 7.5 g/dL (6.4-8.2) Albumin 3.1 g/dL (3.4-5.0) Albumin/Globulin Ratio 0.7 (1.0-1.7) Impression . IMPRESSION: 1. Multiple right upper lobe nodules, largest of them is 2.2 cm WORK UP PROGRESS 2. s/p bronchoscopy , off isolation, AFB smear neg Plan . WILL AWAIT FNA RESULTS ANTIBX PER ID SO FAR ALL CULTURES NEGATIVE SHEILA BAUER MD May 07, 2019 09:27
[2019-05-07] MEDS: CEFTAZIDIME 2 GM IV SCH ×2 (10:20→17:37)
[2019-05-07 11:00] VITALS: BP 141/95
--- NOTE | 2019-05-07 11:41 | PDOC ---
PROGRESS NOTES Chief Complaint Chief Complaint pulmonary nodules clustered in the right upper lobe one of which is cavitary. s/p LEft ant lung biopsy 05/06 Cavitary lesion identified in the right upper lobe of the lung measuring 2.2 cm is unchanged. Nodular airspace opacities identified in the right upper lobe of the lung have increased in number and size compared to prior exam. There is interval increase in confluence of focal airspace opacity or mass severe protein-caloric malnutrition polycystic kidney disease clinical picture is much more indicative of infectious process rather than neoplasm or Tiffanie's. History of Present Illness History of Present Illness NO complaints ABx switched around today BY ID HAd lung biopsy yesterday PULM CONSULT following, s/p bronch 04/30, AFB neg 04/30 PLAN: Will dc home once shifted to PO abx Vitals Vitals Vital Signs Date Time Temp Pulse Resp B/P (MAP) Pulse Ox O2 Delivery O2 Flow Rate FiO2 05/07/19 11:32 97 Room Air 05/07/19 07:00 97.8 97 16 140/96 (111) 97.8 05/06/19 13:36 2.0 Physical Exam Physical Exam GENERAL: Propped up in bed, alert, NAD HEENT: Pupils equal, oral cavity pink, mosist. No lesions NECK: Supple, no JVP, no lymphadenopathy. LUNGS: Diminished aeration right lung hendrickson, nonlabored HEART: S1, S2 regular. ABDOMEN: Soft and nontender EXTREMITIES: No edema, cyanosis. SKIN: without rash NEUROLOGIC: Alert, appropriate PIV General: Alert, Oriented X3, Cooperative, No acute distress Heart: Regular rate, Normal S1 Lungs: Clear Abdomen: Normal bowel sounds, Soft, No tenderness, No hepatosplenomegaly Extremities: No cyanosis Review of Systems Review of Systems neg 14 pt reviewed with him Assessment and Plan Assessmemt and Plan Problems Medical Problems: (1) Dizziness Status: Acute (2) Head pain Status: Acute Comment Review of Relevant I have reviewed the following items analilia (where applicable) has been applied. Labs Laboratory Tests Test 05/06/19 10:35 White Blood Count 4.7 x10^3/uL (4.0-11.0) Red Blood Count 5.45 x10^6/uL (4.30-5.70) Hemoglobin 15.1 g/dL (13.0-17.5) Hematocrit 44.2 % (39.0-53.0) Mean Corpuscular Volume 81 fL (79-100) Mean Corpuscular Hemoglobin 28 pg (25-35) Mean Corpuscular Hemoglobin Concent 34 g/dL (31-37) Red Cell Distribution Width 13.6 % (11.5-14.5) Platelet Count 177 x10^3/uL (140-400) Neutrophils (%) (Auto) 56 % (31-73) Lymphocytes (%) (Auto) 32 % (24-48) Monocytes (%) (Auto) 7 % (0-9) Eosinophils (%) (Auto) 5 % (0-3) Basophils (%) (Auto) 0 % (0-3) Neutrophils # (Auto) 2.7 x10^3/uL (1.8-7.7) Lymphocytes # (Auto) 1.5 x10^3/uL (1.0-4.8) Monocytes # (Auto) 0.3 x10^3/uL (0.0-1.1) Eosinophils # (Auto) 0.3 x10^3/uL (0.0-0.7) Basophils # (Auto) 0.0 x10^3/uL (0.0-0.2) Sodium Level 140 mmol/L (136-145) Potassium Level 3.6 mmol/L (3.5-5.1) Chloride Level 105 mmol/L (98-107) Carbon Dioxide Level 27 mmol/L (21-32) Anion Gap 8 (6-14) Blood Urea Nitrogen 12 mg/dL (8-26) Creatinine 0.7 mg/dL (0.7-1.3) Estimated GFR (Cockcroft-Gault) 129.9 BUN/Creatinine Ratio 17 (6-20) Glucose Level 87 mg/dL (70-99) Calcium Level 8.5 mg/dL (8.5-10.1) Total Bilirubin 0.4 mg/dL (0.2-1.0) Aspartate Amino Transf (AST/SGOT) 48 U/L (15-37) Alanine Aminotransferase (ALT/SGPT) 64 U/L (16-63) Alkaline Phosphatase 109 U/L (46-116) Total Protein 7.5 g/dL (6.4-8.2) Albumin 3.1 g/dL (3.4-5.0) Albumin/Globulin Ratio 0.7 (1.0-1.7) Microbiology 04/30/19 AFB Specimen Processing Tissue - Final, Resulted 04/30/19 Acid Fast Bacilli Culture, Resulted Pending 04/30/19 Gram Stain - Final, Resulted 04/30/19 Fungal Culture, Resulted Pending 04/30/19 Fungal Culture Result 1, Resulted Pending 04/28/19 Blood Culture - Final, Complete NO GROWTH AFTER 5 DAYS Medications Current Medications Prochlorperazine Edisylate (Compazine) 10 mg 1X ONCE IV Last administered on 04/28/19at 17:00; Start 04/28/19 at 17:00; Stop 04/28/19 at 17:01; Status DC Diphenhydramine HCl (Benadryl) 25 mg 1X ONCE IVP Last administered on 04/28/19at 17:24; Start 04/28/19 at 17:00; Stop 04/28/19 at 17:01; Status DC Sodium Chloride 1,000 ml @ 1,000 mls/hr 1X ONCE IV Last administered on 04/28/19at 17:23; Start 04/28/19 at 17:00; Stop 04/28/19 at 17:59; Status DC Potassium Chloride (Klor-Con) 20 meq 1X ONCE PO Last administered on 04/28/19 at 18:47; Start 04/28/19 at 18:00; Stop 04/28/19 at 18:01; Status DC Ketorolac Tromethamine (Toradol 30mg Vial) 30 mg 1X ONCE IVP Last administered on 04/28/19at 18:46; Start 04/28/19 at 18:00; Stop 04/28/19 at 18:01; Status DC Azithromycin 250 ml @ 250 mls/hr 1X ONCE IV Last administered on 04/28/19at 18:47; Start 04/28/19 at 18:30; Stop 04/28/19 at 19:29; Status DC Ceftriaxone Sodium (Rocephin) 1 gm 1X ONCE IVP Last administered on 04/28/19at 18:47; Start 04/28/19 at 18:30; Stop 04/28/19 at 18:31; Status DC Iohexol (Omnipaque 350 Mg/ml) 90 ml 1X ONCE IV Last administered on 04/28/19at 19:30; Start 04/28/19 at 18:45; Stop 04/28/19 at 18:46; Status DC Info (CONTRAST GIVEN -- Rx MONITORING) 1 each PRN DAILY PRN MC SEE COMMENTS; Start 04/28/19 at 18:45; Stop 04/29/19 at 09:29; Status DC Ondansetron HCl (Zofran) 4 mg PRN Q8HRS PRN IV NAUSEA/VOMITING; Start 04/28/19 at 19:30; Stop 04/29/19 at 13:28; Status DC Fentanyl Citrate (Fentanyl 2ml Vial) 50 mcg PRN Q1HR PRN IV PAIN; Start 04/28/19 at 19:30; Stop 04/29/19 at 19:29; Status DC Acetaminophen (Tylenol) 650 mg PRN Q4HRS PRN PO FEVER; Start 04/28/19 at 19:30; Stop 04/29/19 at 19:29; Status DC Magnesium Sulfate 100 ml @ 25 mls/hr 1X ONCE IV Last administered on 04/29/19at 08:59; Start 04/29/19 at 09:00; Stop 04/29/19 at 12:59; Status DC Potassium Chloride (Klor-Con) 40 meq 1X ONCE PO Last administered on 04/29/19at 08:56; Start 04/29/19 at 09:00; Stop 04/29/19 at 09:01; Status DC Iohexol (Omnipaque 300 Mg/ml) 75 ml 1X ONCE IV Last administered on 04/29/19at 09:30; Start 04/29/19 at 09:30; Stop 04/29/19 at 09:31; Status DC Iohexol (Omnipaque 240 Mg/ml) 30 ml 1X ONCE PO ; Start 04/29/19 at 09:30; Stop 04/29/19 at 09:31; Status DC Info (CONTRAST GIVEN -- Rx MONITORING) 1 each PRN DAILY PRN MC SEE COMMENTS; Start 04/29/19 at 09:30; Stop 05/01/19 at 09:29; Status DC Albuterol Sulfate (Ventolin Neb Soln) 2.5 mg PRN 1X PRN NEB SHORTNESS OF BREATH Last administered on 04/30/19at 08:59; Start 04/29/19 at 11:45; Stop 04/30/19 at 11:44; Status DC Lidocaine HCl (Lidocaine 2% Viscous) 100 ml PRN 1X PRN MM MOUTH PAIN Last administered on 04/30/19at 09:00; Start 04/29/19 at 11:45; Stop 04/30/19 at 11:44; Status DC Lidocaine HCl (Lidocaine 1% 20ml Vial) 20 ml PRN 1X PRN INJ SEE COMMENTS Last administered on 04/30/19at 09:00; Start 04/29/19 at 11:45; Stop 04/30/19 at 11:44; Status DC Epinephrine HCl (Adrenalin) 1 mg PRN 1X PRN INJ SEE COMMENTS; Start 04/29/19 at 11:45; Stop 04/30/19 at 11:44; Status DC Lidocaine HCl 50 ml PRN 1X PRN MM SEE COMMENTS Last administered on 04/30/19at 09:00; Start 04/29/19 at 11:45; Stop 04/30/19 at 11:44; Status DC Ringer's Solution 1,000 ml @ 50 mls/hr Q20H IV Last administered on 04/30/19at 08:00; Start 04/30/19 at 07:00; Stop 04/30/19 at 18:59; Status DC Sodium Chloride (Normal Saline Flush) 3 ml QSHIFT PRN IV AFTER MEDS AND BLOOD DRAWS; Start 04/29/19 at 13:30 Sodium Chloride 1,000 ml @ 100 mls/hr Q10H IV Last administered on 05/07/19at 06:12; Start 04/29/19 at 13:20 Ondansetron HCl (Zofran) 4 mg PRN Q4HRS PRN IV NAUSEA/VOMITING; Start 04/29/19 at 13:30 Zolpidem Tartrate (Ambien) 5 mg PRN QHS PRN PO INSOMNIA; Start 04/29/19 at 13:30 Acetaminophen (Tylenol) 650 mg PRN Q4HRS PRN PO TEMP OVER 100.4F OR MILD PAIN Last administered on 05/06/19at 20:55; Start 04/29/19 at 13:30 Al Hydroxide/Mg Hydroxide (Mylanta Plus Xs) 30 ml PRN DAILY PRN PO HEARTBURN / GAS; Start 04/29/19 at 13:30 Clonidine HCl (Catapres) 0.1 mg PRN Q6HRS PRN PO SBP>160 OR DBP>90; Start 04/29/19 at 13:30 Docusate Sodium (Colace) 100 mg PRN BID PRN PO HARD STOOLS; Start 04/29/19 at 13:30 Albuterol/ Ipratropium (Duoneb) 3 ml Q4H NEB Last administered on 04/29/19at 19:59; Start 04/29/19 at 13:30; Stop 04/29/19 at 20:06; Status DC Guaifenesin (Robitussin) 200 mg PRN Q4HRS PRN PO COUGH; Start 04/29/19 at 13:30 Lorazepam (Ativan) 0.5 mg PRN Q4HRS PRN PO ANXIETY / AGITATION; Start 04/29/19 at 13:30 Enoxaparin Sodium (Lovenox 40mg Syringe) 40 mg DAILY SQ Last administered on 05/07/19at 08:31; Start 04/30/19 at 09:00 Albuterol/ Ipratropium (Duoneb) 3 ml QID NEB Last administered on 05/07/19at 11:31; Start 04/30/19 at 09:00 Epinephrine HCl (Adrenalin) 1 mg STK-MED ONCE .ROUTE ; Start 04/30/19 at 07:15; Stop 04/30/19 at 07:15; Status DC Lidocaine HCl (Lidocaine 1% 20ml Vial) 20 ml STK-MED ONCE .ROUTE ; Start 04/30/19 at 07:15; Stop 04/30/19 at 07:15; Status DC Lidocaine HCl (Lidocaine 2% Viscous) 100 ml STK-MED ONCE .ROUTE ; Start 04/30/19 at 07:15; Stop 04/30/19 at 07:15; Status DC Lidocaine HCl 50 ml STK-MED ONCE .ROUTE ; Start 04/30/19 at 07:15; Stop 04/30/19 at 07:15; Status DC Propofol (Diprivan) 400 mg STK-MED ONCE IV ; Start 04/30/19 at 12:00; Stop 04/30/19 at 13:32; Status DC Azithromycin 500 mg/Sodium Chloride 250 ml @ 250 mls/hr Q24H IV Last administered on 05/02/19at 14:56; Start 04/30/19 at 16:00; Stop 05/03/19 at 13:56; Status DC Ceftriaxone Sodium (Rocephin) 1 gm Q24H IVP Last administered on 05/06/19at 16:22; Start 04/30/19 at 16:00 Lactobacillus Rhamnosus (Culturelle) 1 cap BID PO Last administered on 05/07/19at 08:31; Start 05/01/19 at 10:00 Midazolam HCl (Versed) 2 mg STK-MED ONCE .ROUTE ; Start 05/06/19 at 12:57; Stop 05/06/19 at 12:57; Status DC Fentanyl Citrate (Fentanyl 2ml Vial) 100 mcg STK-MED ONCE .ROUTE ; Start 05/06/19 at 12:57; Stop 05/06/19 at 12:57; Status DC Lidocaine HCl (Buffered Lidocaine 1%) 3 ml STK-MED ONCE .ROUTE ; Start 05/06/19 at 12:58; Stop 05/06/19 at 12:58; Status DC Lidocaine HCl (Buffered Lidocaine 1%) 6 ml 1X ONCE IJ Last administered on 05/06/19at 13:30; Start 05/06/19 at 13:30; Stop 05/06/19 at 13:34; Status DC Midazolam HCl (Versed) 1 mg 1X ONCE IV Last administered on 05/06/19at 13:14; Start 05/06/19 at 13:30; Stop 05/06/19 at 13:34; Status DC Fentanyl Citrate (Fentanyl 2ml Vial) 50 mcg 1X ONCE IV Last administered on 05/06/19at 13:34; Start 05/06/19 at 13:30; Stop 05/06/19 at 13:34; Status DC Acetaminophen/ Hydrocodone Bitart (Lortab 5/325) 1 tab PRN Q4HRS PRN PO PAIN MODERATE TO SEVERE; Start 05/07/19 at 09:15 Non-Formulary Medication 1 ea Q6HRS IV Last administered on 05/07/19at 10:20; Start 05/07/19 at 10:00 Vitals/I & O Vital Sign - Last 24 Hours 05/06/19 05/06/19 05/06/19 05/06/19 13:14 13:19 13:24 13:34 Pulse 81 87 87 Resp 19 21 18 19 Pulse Ox 98 94 94 96 O2 Delivery Nasal Cannula Nasal Cannula Nasal Cannula Nasal Cannula O2 Flow Rate 2.0 2.0 2.0 2.0 05/06/19 05/06/19 05/06/19 05/06/19 13:36 14:34 14:44 15:00 Pulse 86 94 84 Resp 22 B/P (MAP) 140/96 (111) 128/ Pulse Ox 96 96 97 O2 Delivery Nasal Cannula Room Air O2 Flow Rate 2.0 05/06/19 05/06/19 05/06/19 05/06/19 15:00 15:15 15:30 16:00 Temp 98.1 98.1 Pulse 78 84 84 74 Resp 18 B/P (MAP) 131/92 (105) 124/92 (103) 131/92 (105) 125/91 (102) Pulse Ox 98 97 97 98 O2 Delivery Room Air 05/06/19 05/06/19 05/06/19 05/06/19 16:30 17:01 18:00 19:15 Temp 97.6 97.6 Pulse 75 73 81 80 Resp 18 B/P (MAP) 131/92 (105) 128/81 (97) 125/90 (102) 114/81 (92) Pulse Ox 98 99 99 99 O2 Delivery Room Air 05/06/19 05/06/19 05/06/19 05/07/19 19:30 20:06 23:06 02:56 Temp 97.3 97.4 97.3 97.4 Pulse 77 66 Resp 18 18 B/P (MAP) 108/67 (81) 104/66 (79) Pulse Ox 97 96 98 O2 Delivery Room Air Room Air Room Air Room Air 05/07/19 05/07/19 05/07/19 05/07/19 07:00 07:15 07:47 11:32 Temp 97.8 97.8 Pulse 97 Resp 16 B/P (MAP) 140/96 (111) Pulse Ox 99 96 97 O2 Delivery Room Air Room Air Room Air Room Air Intake and Output 05/06/19 05/06/19 05/07/19 15:00 23:00 07:00 Intake Total 1250 ml 480 ml Balance 1250 ml 480 ml FRANCISCO GERBER MD May 07, 2019 11:41
[2019-05-07] MEDS ORDERED: CEFTAZIDIME 2 GM IVP ONE ×2 (12:00)
--- NOTE | 2019-05-07 14:18 | RAD ---
05/06/2019 Procedure: CT-guided biopsy, right upper lobe nodular opacity. Clinical Indication: CT guided bx of RUL lung mass Discussion: The procedure was explained in its entirety to the patient or the patients designated sales utility representative by a member of the treatment team, including a discussion of the risks, benefits and commonly accepted alternatives to the procedure, as well as the expected consequences of no therapy whatsoever. Discussion of the risks included, but was not limited to, those that are most frequent and those that are rare but possibly severe or life-threatening, as well as the possibility of unforeseen complications. All elements of maximal sterile barrier technique including the use of a cap, mask, sterile gown, sterile gloves, large sterile sheet, appropriate hand hygiene, and 2% chlorhexidine for cutaneous antisepsis (or acceptable alternative antiseptic per current guidelines) were followed for this procedure. The right upper chest was prepped and draped using the aforementioned sterile barrier technique. 1% lidocaine was administered for local anesthesia. CT imaging was obtained demonstrating multinodular, and groundglass opacities throughout the right upper lobe. One of the larger nodular opacities is partially cavitated. A more inferior nodule is solid. The more inferior nodule targeted for biopsy. Under intermittent CT guidance a 17-gauge needles advanced into the nodule. Core biopsies were obtained. Following the third pass, the patient began to experience hemoptysis, with associated significant coughing. The needle was removed. Manual pressure was held. Hemostasis radiograph of the resolved without intervention. Repeat imaging demonstrated perilesional hemorrhage without pneumothorax or other complication. The patient remained hemodynamically stable. The patient was observed in the radiology department, but ultimately transferred back to the floor where he continued to be stable. The procedure was performed under conscious sedation including continuous cardiopulmonary monitoring via a dedicated sedation nurse. [id number] sedation time: 22 minutes Impression: CT-guided biopsy, right upper lobe nodular opacity. PQRS Compliance Statement: One or more of the following individualized dose reduction techniques were utilized for this examination: 1. Automated exposure control 2. Adjustment of the mA and/or kV according to patient size 3. Use of iterative reconstruction technique
[2019-05-07 15:00] VITALS: BP 121/80
--- NOTE | 2019-05-07 17:06 | PATHOLOGY ---
[facility] Accession Number: [id number] . 01 Material submitted: . lung - RIGHT LUNG MASS. Modifiers: right . 01 Clinical history: . Right lung mass . 02 Diagnosis: Lung tissue, right lung mass, needle biopsies: - Small focus of interstitial chronic inflammation and non-caseating granuloma. . (JPM:mml; 05/07/2019) [facility] 05/07/2019 1020 Local . 02 Comment: Sections of the right lung mass needle biopsy reveal one long segment and one short segment of lung tissue. The lung parenchyma predominantly appears normal and unremarkable. Near one end of the long segment, there is a small focus of interstitial chronic inflammation with an adjacent non-caseating granuloma. Properly-controlled stains for acid-fast bacilli and fungi are obtained on block A1 and yield the following results: . AFB stain: Negative for acid-fast bacilli GMS for fungus: Negative for yeast/fungi. . There is no evidence of malignancy. I am not certain if the biopsy is truly authorization representative of the lesion. Correlate with clinical and radiographic findings. . Special stains (A1): AFB and GMS stain . (JPM:mml; 05/07/2019) . 02 Electronically signed: . Nestor Reyes MD, Pathologist NPI- [id number] . 01 Gross description: . Received in formalin labeled "Magy Belcher, right lung mass," are 2 distinct needle cores of hankins soft tissue measuring 0.4 and 1.9 cm in length and less than 0.1 cm in diameter. The specimen is submitted entirely in cassettes A1 and A2. Due to the minute nature of the specimen, they may not survive processing. (TSD; 05/06/2019) TOB/TOB 05/06/2019 1741 Local . 02 Pathologist provided ICD-10: J98.4, J84.10 . 02 CPT . 338003, 390041, 918649 Specimen Comment: A courtesy copy of this report has been sent to [phone] Specimen Comment: [id number], Specimen Comment: Report sent to , , and Performed at: 01 [facility] [address] [place] [address] [address], [place] [id number] MD Henry Chopra MD Phone: [phone] Performed at: 02 [facility] [address], [place] [id number] MD Nestor Reyes MD Phone: [phone]
[2019-05-07 19:00] VITALS: BP 139/95
[2019-05-07 23:00] VITALS: BP 131/89
[2019-05-08] MEDS: CEFTAZIDIME 2 GM IV SCH ×2 (00:24→06:17)
[2019-05-08 03:00] VITALS: BP 121/82
[2019-05-08] MEDS ORDERED: CEFTAZIDIME 2 GM IVP ONE ×2 (06:00)
[2019-05-08] MEDS: IPRATRPIUM/ALBUTEROL 0.5/2.5MG 3 ML NEBU. NEB SCH ×4 (06:58→21:45)
[2019-05-08 07:15] VITALS: BP 140/92
[2019-05-08] MEDS: ENOXAPARIN 40 MG/0.4 ML SYRINGE. SQ SCH (08:19)
[2019-05-08] MEDS: LACTOBACILLUS RHAMNOSUS GG 1 CAPSULE. PO SCH ×2 (08:20→20:15)
--- NOTE | 2019-05-08 08:56 | PDOC ---
Infectious Disease Note Subjective: Subjective Doing ok No complaints Vital Signs: Vital Signs Vital Signs Date Time Temp Pulse Resp B/P (MAP) Pulse Ox O2 Delivery O2 Flow Rate FiO2 05/08/19 07:15 98.0 79 18 140/92 (108) 97 Room Air 98.0 Physical Exam: PHYSICAL EXAM GENERAL: Propped up in bed, alert, NAD HEENT: Pupils equal, oral cavity pink, mosist. No lesions NECK: Supple, no JVP, no lymphadenopathy. LUNGS: Diminished aeration right lung hendrickson, nonlabored HEART: S1, S2 regular. ABDOMEN: Soft and nontender EXTREMITIES: No edema, cyanosis. SKIN: without rash NEUROLOGIC: Alert, appropriate PIV Medications: Inpatient Meds: Current Medications Medications (Trade) Dose Ordered Sig/Clif Start Time Stop Time Status Last Admin Dose Admin Acetaminophen (Tylenol) 650 mg PRN Q4HRS PRN 04/29/19 13:30 05/06/19 20:55 650 MG Acetaminophen/ Hydrocodone Bitart (Lortab 5/325) 1 tab PRN Q4HRS PRN 05/07/19 09:15 Al Hydroxide/Mg Hydroxide (Mylanta Plus Xs) 30 ml PRN DAILY PRN 04/29/19 13:30 Albuterol Sulfate (Ventolin Neb Soln) 2.5 mg PRN 1X PRN 04/29/19 11:45 04/30/19 11:44 DC 04/30/19 08:59 2.5 MG Albuterol/ Ipratropium (Duoneb) 3 ml QID 04/30/19 09:00 05/08/19 06:58 3 ML Azithromycin 250 ml @ 250 mls/hr 1X ONCE 04/28/19 18:30 04/28/19 19:29 DC 04/28/19 18:47 250 MLS/HR Azithromycin 500 mg/Sodium Chloride 250 ml @ 250 mls/hr Q24H 04/30/19 16:00 05/03/19 13:56 DC 05/02/19 14:56 250 MLS/HR Ceftriaxone Sodium (Rocephin) 1 gm Q24H 04/30/19 16:00 05/07/19 12:40 DC 05/06/19 16:22 1 GM Clonidine HCl (Catapres) 0.1 mg PRN Q6HRS PRN 04/29/19 13:30 Diphenhydramine HCl (Benadryl) 25 mg 1X ONCE 04/28/19 17:00 04/28/19 17:01 DC 04/28/19 17:24 25 MG Docusate Sodium (Colace) 100 mg PRN BID PRN 04/29/19 13:30 Enoxaparin Sodium (Lovenox 40mg Syringe) 40 mg DAILY 04/30/19 09:00 05/08/19 08:19 40 MG Epinephrine HCl (Adrenalin) 1 mg STK-MED ONCE 04/30/19 07:15 04/30/19 07:15 DC Fentanyl Citrate (Fentanyl 2ml Vial) 50 mcg 1X ONCE 05/06/19 13:30 05/06/19 13:34 DC 05/06/19 13:34 50 MCG Guaifenesin (Robitussin) 200 mg PRN Q4HRS PRN 04/29/19 13:30 Info (CONTRAST GIVEN -- Rx MONITORING) 1 each PRN DAILY PRN 04/29/19 09:30 05/01/19 09:29 DC Iohexol (Omnipaque 240 Mg/ml) 30 ml 1X ONCE 04/29/19 09:30 04/29/19 09:31 DC Iohexol (Omnipaque 300 Mg/ml) 75 ml 1X ONCE 04/29/19 09:30 04/29/19 09:31 DC 04/29/19 09:30 75 ML Iohexol (Omnipaque 350 Mg/ml) 90 ml 1X ONCE 04/28/19 18:45 04/28/19 18:46 DC 04/28/19 19:30 90 ML Ketorolac Tromethamine (Toradol 30mg Vial) 30 mg 1X ONCE 04/28/19 18:00 04/28/19 18:01 DC 04/28/19 18:46 30 MG Lactobacillus Rhamnosus (Culturelle) 1 cap BID 05/01/19 10:00 05/08/19 08:20 1 CAP Lidocaine HCl (Buffered Lidocaine 1%) 6 ml 1X ONCE 05/06/19 13:30 05/06/19 13:34 DC 05/06/19 13:30 6 ML Lidocaine HCl (Lidocaine 1% 20ml Vial) 20 ml STK-MED ONCE 04/30/19 07:15 04/30/19 07:15 DC Lidocaine HCl (Lidocaine 2% Viscous) 100 ml STK-MED ONCE 04/30/19 07:15 04/30/19 07:15 DC Lorazepam (Ativan) 0.5 mg PRN Q4HRS PRN 04/29/19 13:30 Magnesium Sulfate 100 ml @ 25 mls/hr 1X ONCE 04/29/19 09:00 04/29/19 12:59 DC 04/29/19 08:59 25 MLS/HR Midazolam HCl (Versed) 1 mg 1X ONCE 05/06/19 13:30 05/06/19 13:34 DC 05/06/19 13:14 1 MG Non-Formulary Medication 1 ea Q6HRS 05/07/19 10:00 05/08/19 06:17 1 EA Ondansetron HCl (Zofran) 4 mg PRN Q4HRS PRN 04/29/19 13:30 Potassium Chloride (Klor-Con) 40 meq 1X ONCE 04/29/19 09:00 04/29/19 09:01 DC 04/29/19 08:56 40 MEQ Prochlorperazine Edisylate (Compazine) 10 mg 1X ONCE 04/28/19 17:00 04/28/19 17:01 DC 04/28/19 17:00 10 MG Propofol (Diprivan) 400 mg STK-MED ONCE 04/30/19 12:00 04/30/19 13:32 DC Ringer's Solution 1,000 ml @ 50 mls/hr Q20H 04/30/19 07:00 04/30/19 18:59 DC 04/30/19 08:00 50 MLS/HR Sodium Chloride 1,000 ml @ 100 mls/hr Q10H 04/29/19 13:20 05/07/19 11:42 DC 05/07/19 06:12 100 MLS/HR Sodium Chloride (Normal Saline Flush) 3 ml QSHIFT PRN 04/29/19 13:30 Zolpidem Tartrate (Ambien) 5 mg PRN QHS PRN 04/29/19 13:30 Objective: Assessment: 1. Multiple nodular cavitary lesion in the right upper lobe etiology, possibilities are tuberculosis versus melioidosis, especially he is [place]. W/U neg so far from bronchoscopy 04/30 and biopsy 12/3 Cultures afb and fungal pending s/p ct guided biospy 05/06 Small focus of interstitial chronic inflammation and non-caseating granuloma. AFB and fungal stains neg, no malignant cells identified D/D infectious and noninfectious 2. Weight loss. 3. Neck and back problems, chronic. 4. ? polycystic kidney disease on CT 5. T spot positive Plan: Plan of Care ceftazidime 2gm IV Q6hrs Off azithromycin Probiotics F/U cultures D/w nursing MYLA EDUARDO MD May 08, 2019 08:56
[2019-05-08 11:04] VITALS: BP 138/93
--- NOTE | 2019-05-08 11:34 | PDOC ---
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 IMPRESSION: 1. Multiple right upper lobe nodules, largest of them is 2.2 cm WORK UP PROGRESS 2. s/p bronchoscopy , off isolation, AFB smear neg Plan . PATH NOTED WILL D/W ID DURATION OF ANTIBX USE ANTIBX PER ID SO FAR ALL CULTURES NEGATIVE SHEILA BAUER MD May 08, 2019 11:34
[2019-05-08] MEDS: CEFTAZIDIME 2 GM IVP SCH ×3 (12:59→23:36)
--- NOTE | 2019-05-08 13:01 | PDOC ---
PROGRESS NOTES Chief Complaint Chief Complaint pulmonary nodules clustered in the right upper lobe one of which is cavitary. s/p LEft ant lung biopsy 05/06 Cavitary lesion identified in the right upper lobe of the lung measuring 2.2 cm is unchanged. Nodular airspace opacities identified in the right upper lobe of the lung have increased in number and size compared to prior exam. There is interval increase in confluence of focal airspace opacity or mass severe protein-caloric malnutrition polycystic kidney disease clinical picture is much more indicative of infectious process rather than neoplasm or Tiffanie's. History of Present Illness History of Present Illness NO complaints waiting on lung biopsy results NOn tunisian speaking - bronch is neg On IV abx per ID Day 10 hospitalziation PULM CONSULT following, s/p bronch 04/30, AFB neg 04/30 PLAN: Will dc home once shifted to PO abx ff up biopsy results Vitals Vitals Vital Signs Date Time Temp Pulse Resp B/P (MAP) Pulse Ox O2 Delivery O2 Flow Rate FiO2 05/08/19 11:15 100 Room Air 05/08/19 11:04 97.9 81 20 138/93 (108) 97.9 Physical Exam Physical Exam GENERAL: Propped up in bed, alert, NAD HEENT: Pupils equal, oral cavity pink, mosist. No lesions NECK: Supple, no JVP, no lymphadenopathy. LUNGS: Diminished aeration right lung hendrickson, nonlabored HEART: S1, S2 regular. ABDOMEN: Soft and nontender EXTREMITIES: No edema, cyanosis. SKIN: without rash NEUROLOGIC: Alert, appropriate PIV General: Alert, Oriented X3, Cooperative, No acute distress Heart: Regular rate, Normal S1 Lungs: Clear Abdomen: Normal bowel sounds, Soft, No tenderness, No hepatosplenomegaly Extremities: No cyanosis Review of Systems Review of Systems neg 14 pt reviewed with him Assessment and Plan Assessmemt and Plan Problems Medical Problems: (1) Dizziness Status: Acute (2) Head pain Status: Acute Comment Review of Relevant I have reviewed the following items analilia (where applicable) has been applied. Labs Microbiology 05/06/19 Anaerobic/Aerobic Culture, Resulted Pending 05/06/19 Anaerobic Culture Result 1 (KELLY), Resulted Pending 05/06/19 Aerobic Culture - Preliminary, Resulted 05/06/19 Aerobic Culture Result 1 (KELLY) - Preliminary, Resulted 05/06/19 Gram Stain - Final, Resulted 05/06/19 Gram Stain Result 1 (KELLY) - Final, Resulted 05/06/19 Gram Stain Result 2 (KELLY) - Final, Resulted 04/30/19 AFB Specimen Processing Tissue - Final, Resulted 04/30/19 Acid Fast Bacilli Culture, Resulted Pending 04/30/19 Gram Stain - Final, Resulted 04/30/19 Fungal Culture, Resulted Pending 04/30/19 Fungal Culture Result 1, Resulted Pending 04/28/19 Blood Culture - Final, Complete NO GROWTH AFTER 5 DAYS Medications Current Medications Prochlorperazine Edisylate (Compazine) 10 mg 1X ONCE IV Last administered on 04/28/19 17:00; Start 04/28/19 at 17:00; Stop 04/28/19 at 17:01; Status DC Diphenhydramine HCl (Benadryl) 25 mg 1X ONCE IVP Last administered on 04/28/19 17:24; Start 04/28/19 at 17:00; Stop 04/28/19 at 17:01; Status DC Sodium Chloride 1,000 ml @ 1,000 mls/hr 1X ONCE IV Last administered on 04/28/19 17:23; Start 04/28/19 at 17:00; Stop 04/28/19 at 17:59; Status DC Potassium Chloride (Klor-Con) 20 meq 1X ONCE PO Last administered on 04/28/19 18:47; Start 04/28/19 at 18:00; Stop 04/28/19 at 18:01; Status DC Ketorolac Tromethamine (Toradol 30mg Vial) 30 mg 1X ONCE IVP Last administered on 04/28/19 18:46; Start 04/28/19 at 18:00; Stop 04/28/19 at 18:01; Status DC Azithromycin 250 ml @ 250 mls/hr 1X ONCE IV Last administered on 04/28/19 18:47; Start 04/28/19 at 18:30; Stop 04/28/19 at 19:29; Status DC Ceftriaxone Sodium (Rocephin) 1 gm 1X ONCE IVP Last administered on 04/28/19 18:47; Start 04/28/19 at 18:30; Stop 04/28/19 at 18:31; Status DC Iohexol (Omnipaque 350 Mg/ml) 90 ml 1X ONCE IV Last administered on 11/25/19at 19:30; Start 04/28/19 at 18:45; Stop 04/28/19 at 18:46; Status DC Info (CONTRAST GIVEN -- Rx MONITORING) 1 each PRN DAILY PRN MC SEE COMMENTS; Start 04/28/19 at 18:45; Stop 04/29/19 at 09:29; Status DC Ondansetron HCl (Zofran) 4 mg PRN Q8HRS PRN IV NAUSEA/VOMITING; Start 04/28/19 at 19:30; Stop 04/29/19 at 13:28; Status DC Fentanyl Citrate (Fentanyl 2ml Vial) 50 mcg PRN Q1HR PRN IV PAIN; Start 04/28/19 at 19:30; Stop 04/29/19 at 19:29; Status DC Acetaminophen (Tylenol) 650 mg PRN Q4HRS PRN PO FEVER; Start 04/28/19 at 19:30; Stop 04/29/19 at 19:29; Status DC Magnesium Sulfate 100 ml @ 25 mls/hr 1X ONCE IV Last administered on 04/29/19at 08:59; Start 04/29/19 at 09:00; Stop 04/29/19 at 12:59; Status DC Potassium Chloride (Klor-Con) 40 meq 1X ONCE PO Last administered on 04/29/19 at 08:56; Start 04/29/19 at 09:00; Stop 04/29/19 at 09:01; Status DC Iohexol (Omnipaque 300 Mg/ml) 75 ml 1X ONCE IV Last administered on 04/29/19at 09:30; Start 04/29/19 at 09:30; Stop 04/29/19 at 09:31; Status DC Iohexol (Omnipaque 240 Mg/ml) 30 ml 1X ONCE PO ; Start 04/29/19 at 09:30; Stop 04/29/19 at 09:31; Status DC Info (CONTRAST GIVEN -- Rx MONITORING) 1 each PRN DAILY PRN MC SEE COMMENTS; Start 04/29/19 at 09:30; Stop 05/01/19 at 09:29; Status DC Albuterol Sulfate (Ventolin Neb Soln) 2.5 mg PRN 1X PRN NEB SHORTNESS OF BREATH Last administered on 04/30/19at 08:59; Start 04/29/19 at 11:45; Stop 04/30/19 at 11:44; Status DC Lidocaine HCl (Lidocaine 2% Viscous) 100 ml PRN 1X PRN MM MOUTH PAIN Last administered on 04/30/19at 09:00; Start 04/29/19 at 11:45; Stop 04/30/19 at 11:44; Status DC Lidocaine HCl (Lidocaine 1% 20ml Vial) 20 ml PRN 1X PRN INJ SEE COMMENTS Last administered on 04/30/19at 09:00; Start 04/29/19 at 11:45; Stop 04/30/19 at 11:44; Status DC Epinephrine HCl (Adrenalin) 1 mg PRN 1X PRN INJ SEE COMMENTS; Start 04/29/19 at 11:45; Stop 04/30/19 at 11:44; Status DC Lidocaine HCl 50 ml PRN 1X PRN MM SEE COMMENTS Last administered on 04/30/19at 09:00; Start 04/29/19 at 11:45; Stop 04/30/19 at 11:44; Status DC Ringer's Solution 1,000 ml @ 50 mls/hr Q20H IV Last administered on 04/30/19at 08:00; Start 04/30/19 at 07:00; Stop 04/30/19 at 18:59; Status DC Sodium Chloride (Normal Saline Flush) 3 ml QSHIFT PRN IV AFTER MEDS AND BLOOD DRAWS; Start 04/29/19 at 13:30 Sodium Chloride 1,000 ml @ 100 mls/hr Q10H IV Last administered on 05/07/19at 06:12; Start 04/29/19 at 13:20; Stop 05/07/19 at 11:42; Status DC Ondansetron HCl (Zofran) 4 mg PRN Q4HRS PRN IV NAUSEA/VOMITING; Start 04/29/19 at 13:30 Zolpidem Tartrate (Ambien) 5 mg PRN QHS PRN PO INSOMNIA; Start 04/29/19 at 13:30 Acetaminophen (Tylenol) 650 mg PRN Q4HRS PRN PO TEMP OVER 100.4F OR MILD PAIN Last administered on 05/06/19at 20:55; Start 04/29/19 at 13:30 Al Hydroxide/Mg Hydroxide (Mylanta Plus Xs) 30 ml PRN DAILY PRN PO HEARTBURN / GAS; Start 04/29/19 at 13:30 Clonidine HCl (Catapres) 0.1 mg PRN Q6HRS PRN PO SBP>160 OR DBP>90; Start 04/29/19 at 13:30 Docusate Sodium (Colace) 100 mg PRN BID PRN PO HARD STOOLS; Start 04/29/19 at 13:30 Albuterol/ Ipratropium (Duoneb) 3 ml Q4H NEB Last administered on 04/29/19at 19:59; Start 04/29/19 at 13:30; Stop 04/29/19 at 20:06; Status DC Guaifenesin (Robitussin) 200 mg PRN Q4HRS PRN PO COUGH; Start 04/29/19 at 13:30 Lorazepam (Ativan) 0.5 mg PRN Q4HRS PRN PO ANXIETY / AGITATION; Start 04/29/19 at 13:30 Enoxaparin Sodium (Lovenox 40mg Syringe) 40 mg DAILY SQ Last administered on at 08:19; Start 04/30/19 at 09:00 Albuterol/ Ipratropium (Duoneb) 3 ml QID NEB Last administered on 05/08/19at 11:15; Start 04/30/19 at 09:00 Epinephrine HCl (Adrenalin) 1 mg STK-MED ONCE .ROUTE ; Start 04/30/19 at 07:15; Stop 04/30/19 at 07:15; Status DC Lidocaine HCl (Lidocaine 1% 20ml Vial) 20 ml STK-MED ONCE .ROUTE ; Start 04/30/19 at 07:15; Stop 04/30/19 at 07:15; Status DC Lidocaine HCl (Lidocaine 2% Viscous) 100 ml STK-MED ONCE .ROUTE ; Start 04/30/19 at 07:15; Stop 04/30/19 at 07:15; Status DC Lidocaine HCl 50 ml STK-MED ONCE .ROUTE ; Start 04/30/19 at 07:15; Stop 04/30/19 at 07:15; Status DC Propofol (Diprivan) 400 mg STK-MED ONCE IV ; Start 04/30/19 at 12:00; Stop 04/30/19 at 13:32; Status DC Azithromycin 500 mg/Sodium Chloride 250 ml @ 250 mls/hr Q24H IV Last administered on 05/02/19at 14:56; Start 04/30/19 at 16:00; Stop 05/03/19 at 13:56; Status DC Ceftriaxone Sodium (Rocephin) 1 gm Q24H IVP Last administered on 05/06/19 16:22; Start 04/30/19 at 16:00; Stop 05/07/19 at 12:40; Status DC Lactobacillus Rhamnosus (Culturelle) 1 cap BID PO Last administered on 05/08/19at 08:20; Start 05/01/19 at 10:00 Midazolam HCl (Versed) 2 mg STK-MED ONCE .ROUTE ; Start 05/06/19 at 12:57; Stop 05/06/19 at 12:57; Status DC Fentanyl Citrate (Fentanyl 2ml Vial) 100 mcg STK-MED ONCE .ROUTE ; Start 05/06/19 at 12:57; Stop 05/06/19 at 12:57; Status DC Lidocaine HCl (Buffered Lidocaine 1%) 3 ml STK-MED ONCE .ROUTE ; Start 05/06/19 at 12:58; Stop 05/06/19 at 12:58; Status DC Lidocaine HCl (Buffered Lidocaine 1%) 6 ml 1X ONCE IJ Last administered on 05/06/19 13:30; Start 05/06/19 at 13:30; Stop 05/06/19 at 13:34; Status DC Midazolam HCl (Versed) 1 mg 1X ONCE IV Last administered on 05/06/19at 13:14; Start 05/06/19 at 13:30; Stop 05/06/19 at 13:34; Status DC Fentanyl Citrate (Fentanyl 2ml Vial) 50 mcg 1X ONCE IV Last administered on 05/06/19at 13:34; Start 05/06/19 at 13:30; Stop 05/06/19 at 13:34; Status DC Acetaminophen/ Hydrocodone Bitart (Lortab 5/325) 1 tab PRN Q4HRS PRN PO PAIN M ODERATE TO SEVERE; Start 05/07/19 at 09:15 Non-Formulary Medication 1 ea Q6HRS IV Last administered on 05/08/19 06:17; Start 05/07/19 at 10:00; Stop 05/08/19 at 10:18; Status DC Ceftazidime (Fortaz) 2 gm Q6HRS IVP Last administered on 12/5/19at 12:59; Start 05/08/19 at 12:00 Ceftazidime (Fortaz) 2 gm STK-MED ONCE IVP ; Start 05/07/19 at 12:00; Stop 05/08/19 at 10:19; Status DC Ceftazidime (Fortaz) 2 gm STK-MED ONCE IVP ; Start 05/07/19 at 12:00; Stop 05/08/19 at 10:19; Status DC Ceftazidime (Fortaz) 2 gm STK-MED ONCE IVP ; Start 05/08/19 at 06:00; Stop 05/08/19 at 10:20; Status DC Ceftazidime (Fortaz) 2 gm STK-MED ONCE IVP ; Start 05/08/19 at 06:00; Stop 05/08/19 at 10:20; Status DC Vitals/I & O Vital Sign - Last 24 Hours 05/07/19 05/07/19 05/07/19 05/07/19 15:00 19:00 19:25 19:30 Temp 98.4 98.5 98.4 98.5 Pulse 88 80 Resp 16 18 B/P (MAP) 121/80 (94) 139/95 (110) Pulse Ox 98 96 98 O2 Delivery Room Air Room Air Room Air Room Air 05/07/19 05/08/19 05/08/19 05/08/19 23:00 03:00 06:59 07:15 Temp 98.9 98.7 98.0 98.9 98.7 98.0 Pulse 74 74 79 Resp 18 18 18 B/P (MAP) 131/89 (103) 121/82 (95) 140/92 (108) Pulse Ox 96 98 100 97 O2 Delivery Room Air Room Air Room Air Room Air 05/08/19 05/08/19 05/08/19 08:00 11:04 11:15 Temp 97.9 97.9 Pulse 81 Resp 20 B/P (MAP) 138/93 (108) Pulse Ox 96 100 O2 Delivery Room Air Room Air Room Air Intake and Output 0 05/07/19 05/07/19 05/08/19 15:00 23:00 07:00 Intake Total 1000 ml 550 ml Balance 1000 ml 550 ml FRANCISCO GERBER MD May 08, 2019 13:01
--- NOTE | 2019-05-08 13:05 | NUR ---
SS following up with discharge planning. No PT/OT needs noted at this time. Pt is currently on room air. SS will continue to follow for discharge planning.
[2019-05-08 14:59] VITALS: BP 123/88
[2019-05-08 19:00] VITALS: BP 127/84
[2019-05-08 23:00] VITALS: BP 138/94
[2019-05-09 03:00] VITALS: BP 129/81
[2019-05-09] MEDS: CEFTAZIDIME 2 GM IVP SCH ×3 (05:23→18:06)
[2019-05-09 07:00] VITALS: BP 123/85
[2019-05-09] MEDS: IPRATRPIUM/ALBUTEROL 0.5/2.5MG 3 ML NEBU. NEB SCH ×4 (07:01→20:48)
[2019-05-09] MEDS: ENOXAPARIN 40 MG/0.4 ML SYRINGE. SQ SCH (08:31)
[2019-05-09] MEDS: LACTOBACILLUS RHAMNOSUS GG 1 CAPSULE. PO SCH ×2 (08:31→21:00)
--- NOTE | 2019-05-09 09:25 | PDOC ---
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 No lesions NECK: Supple, no JVP, no lymphadenopathy. LUNGS: Diminished aeration right lung hendrickson, nonlabored HEART: S1, S2 regular. ABDOMEN: Soft and nontender EXTREMITIES: No edema, cyanosis. SKIN: without rash NEUROLOGIC: Alert, appropriate PIV Medications: Inpatient Meds: Current Medications Medications (Trade) Dose Ordered Sig/Clif Start Time Stop Time Status Last Admin Dose Admin Acetaminophen (Tylenol) 650 mg PRN Q4HRS PRN 04/29/19 13:30 05/06/19 20:55 650 MG Acetaminophen/ Hydrocodone Bitart (Lortab 5/325) 1 tab PRN Q4HRS PRN 05/07/19 09:15 Al Hydroxide/Mg Hydroxide (Mylanta Plus Xs) 30 ml PRN DAILY PRN 04/29/19 13:30 Albuterol Sulfate (Ventolin Neb Soln) 2.5 mg PRN 1X PRN 04/29/19 11:45 04/30/19 11:44 DC 04/30/19 08:59 2.5 MG Albuterol/ Ipratropium (Duoneb) 3 ml QID 04/30/19 09:00 05/09/19 07:01 3 ML Azithromycin 250 ml @ 250 mls/hr 1X ONCE 04/28/19 18:30 04/28/19 19:29 DC 04/28/19 18:47 250 MLS/HR Azithromycin 500 mg/Sodium Chloride 250 ml @ 250 mls/hr Q24H 04/30/19 16:00 05/03/19 13:56 DC 05/02/19 14:56 250 MLS/HR Ceftazidime (Fortaz) 2 gm STK-MED ONCE 05/08/19 06:00 05/08/19 10:20 DC Ceftriaxone Sodium (Rocephin) 1 gm Q24H 04/30/19 16:00 05/07/19 12:40 DC 05/06/19 16:22 1 GM Clonidine HCl (Catapres) 0.1 mg PRN Q6HRS PRN 04/29/19 13:30 Diphenhydramine HCl (Benadryl) 25 mg 1X ONCE 04/28/19 17:00 04/28/19 17:01 DC 04/28/19 17:24 25 MG Docusate Sodium (Colace) 100 mg PRN BID PRN 04/29/19 13:30 Enoxaparin Sodium (Lovenox 40mg Syringe) 40 mg DAILY 04/30/19 09:00 05/09/19 08:31 40 MG Epinephrine HCl (Adrenalin) 1 mg STK-MED ONCE 04/30/19 07:15 04/30/19 07:15 DC Fentanyl Citrate (Fentanyl 2ml Vial) 50 mcg 1X ONCE 05/06/19 13:30 05/06/19 13:34 DC 05/06/19 13:34 50 MCG Guaifenesin (Robitussin) 200 mg PRN Q4HRS PRN 04/29/19 13:30 Info (CONTRAST GIVEN -- Rx MONITORING) 1 each PRN DAILY PRN 04/29/19 09:30 05/01/19 09:29 DC Iohexol (Omnipaque 240 Mg/ml) 30 ml 1X ONCE 04/29/19 09:30 04/29/19 09:31 DC Iohexol (Omnipaque 300 Mg/ml) 75 ml 1X ONCE 04/29/19 09:30 04/29/19 09:31 DC 04/29/19 09:30 75 ML Iohexol (Omnipaque 350 Mg/ml) 90 ml 1X ONCE 04/28/19 18:45 04/28/19 18:46 DC 04/28/19 19:30 90 ML Ketorolac Tromethamine (Toradol 30mg Vial) 30 mg 1X ONCE 04/28/19 18:00 04/28/19 18:01 DC 04/28/19 18:46 30 MG Lactobacillus Rhamnosus (Culturelle) 1 cap BID 05/01/19 10:00 05/09/19 08:31 1 CAP Lidocaine HCl (Buffered Lidocaine 1%) 6 ml 1X ONCE 05/06/19 13:30 05/06/19 13:34 DC 05/06/19 13:30 6 ML Lidocaine HCl (Lidocaine 1% 20ml Vial) 20 ml STK-MED ONCE 04/30/19 07:15 04/30/19 07:15 DC Lidocaine HCl (Lidocaine 2% Viscous) 100 ml STK-MED ONCE 04/30/19 07:15 04/30/19 07:15 DC Lorazepam (Ativan) 0.5 mg PRN Q4HRS PRN 04/29/19 13:30 Magnesium Sulfate 100 ml @ 25 mls/hr 1X ONCE 04/29/19 09:00 04/29/19 12:59 DC 04/29/19 08:59 25 MLS/HR Midazolam HCl (Versed) 1 mg 1X ONCE 05/06/19 13:30 05/06/19 13:34 DC 05/06/19 13:14 1 MG Non-Formulary Medication 1 ea Q6HRS 05/07/19 10:00 05/08/19 10:18 DC 05/08/19 06:17 1 EA Ondansetron HCl (Zofran) 4 mg PRN Q4HRS PRN 04/29/19 13:30 Potassium Chloride (Klor-Con) 40 meq 1X ONCE 04/29/19 09:00 04/29/19 09:01 DC 04/29/19 08:56 40 MEQ Prochlorperazine Edisylate (Compazine) 10 mg 1X ONCE 04/28/19 17:00 04/28/19 17:01 DC 04/28/19 17:00 10 MG Propofol (Diprivan) 400 mg STK-MED ONCE 04/30/19 12:00 04/30/19 13:32 DC Ringer's Solution 1,000 ml @ 50 mls/hr Q20H 04/30/19 07:00 04/30/19 18:59 DC 04/30/19 08:00 50 MLS/HR Sodium Chloride 1,000 ml @ 100 mls/hr Q10H 04/29/19 13:20 05/07/19 11:42 DC 05/07/19 06:12 100 MLS/HR Sodium Chloride (Normal Saline Flush) 3 ml QSHIFT PRN 04/29/19 13:30 Zolpidem Tartrate (Ambien) 5 mg PRN QHS PRN 04/29/19 13:30 Objective: Assessment: 1. Multiple nodular cavitary lesion in the right upper lobe etiology, possibilities are tuberculosis versus melioidosis, especially [place] is from [place]. W/U neg so far from bronchoscopy 04/30 and biopsy 05/06 Cultures afb and fungal pending s/p ct guided biospy 05/06 Small focus of interstitial chronic inflammation and non-caseating granuloma. AFB and fungal stains neg, no malignant cells identified D/D infectious and noninfectious 2. Weight loss. 3. Neck and back problems, chronic. 4. ? polycystic kidney disease on CT 5. T spot positive Plan: Plan of Care ceftazidime 2gm IV Q6hrs for 3-4 weeks Off azithromycin Probiotics F/U cultures will need f/u ct chest per pulm team midline all questions answered d/w sw D/w nursing MYLA EDUARDO MD May 09, 2019 09:25
--- NOTE | 2019-05-09 10:15 | SNU/HH DC ---
DISCHARGE ORDERS DISCHARGE INFORMATION: DISCHARGE DATE: May 09, 2019 FINAL DIAGNOSIS Problems Medical Problems: (1) Dizziness Status: Acute (2) Head pain Status: Acute CODE STATUS: Code Status: Full LONG TERM: SNF STAY <30 DAYS: Yes HOSPICE: HOSPICE: No HOSPICE EVAL & TREAT: No LTAC: ADMIT TO LTAC: Yes POST DISCHARGE ORDERS: ACTIVITY ORDERS: No restrictions DIET AFTER DISCHARGE: Regular CHECKS AFTER DISCHARGE: CHECKS AFTER DISCHARGE: Check blood press - daily, Check blood sugar, ac/hs FOLLOW-UP: PHYSICIAN FOLLOW-UP: picc mayra, iv abx, ff up lung biopsy results TREATMENT/EQUIPMENT ORDERS: INFUSION EQUIPMENT NEEDED: PICC Line Physical Therapy For: Evalulation/Treatment Occupational Therapy For: Evaluation/Treatment DISCHARGE MEDICATIONS: Home Meds No Active Prescriptions or Reported Meds FRANCISCO GERBER MD May 09, 2019 10:15
--- NOTE | 2019-05-09 10:18 | PDOC3 ---
Discharge Summary Visit Information Date of Admission: Apr 28, 2019 Date of Discharge: May 09, 2019 Admitting Diagnosis Comment: pulmonary nodules clustered in the right upper lobe one of which is cavitary. s/p LEft ant lung biopsy 05/06 Cavitary lesion identified in the right upper lobe of the lung measuring 2.2 cm is unchanged. Nodular airspace opacities identified in the right upper lobe of the lung have increased in number and size compared to prior exam. There is interval increase in confluence of focal airspace opacity or mass severe protein-caloric malnutrition polycystic kidney disease clinical picture is much more indicative of infectious process rather than neoplasm or Tiffanie's. Final Diagnosis Problems Medical Problems: (1) Dizziness Status: Acute (2) Head pain Status: Acute Brief Hospital Course Allergies Allergies Coded Allergies Type Severity Reaction Last Updated Verified No Known Drug Allergies 04/30/19 No Vital Signs Vital Signs Date Time Temp Pulse Resp B/P (MAP) Pulse Ox O2 Delivery O2 Flow Rate FiO2 05/09/19 08:00 Room Air 05/09/19 07:02 98 05/09/19 07:00 97.9 103 18 123/85 (98) 97.9 05/08/19 21:46 96.0 Brief Hospital Course Mr. Belcher is a 34 old non smoker, prev healthy admitted 04/28 by a colleague with pulmonary nodules.masses/cavitation co managed with ID and pulmo and needed bronch, then subsequently IR guided biopsy left anterior/upper lung tolerated procedure well. 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
[2019-05-09 11:00] VITALS: BP 138/99
--- NOTE | 2019-05-09 11:00 | NUR ---
SS following for discharge planning. SS reviewed pt chart. Pt is from home with family and is currently on room air. SS received referral to screen for LTAC. SS met with pt and spoke with pt's family via phone. Pt and pt's family agreeable to LTAC and reported that they do not want to go to [facility] in [place]. Pt's family reported that they wanted to remain close to the [place], [place] area and requested that referral be phoned and faxed to [facility], ; fax [phone]. SS phoned and faxed referral and discharge orders to [facility]. SS awaiting acceptance decision and insurance determination and will proceed accordingly with discharge planning.
--- NOTE | 2019-05-09 11:36 | PDOC ---
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 IMPRESSION: 1. Multiple right upper lobe nodules, largest of them is 2.2 cm WORK UP PROGRESS 2. s/p bronchoscopy , off isolation, AFB smear neg Plan . transfer to [facility] PER ID SO FAR ALL CULTURES NEGATIVE SHEILA BAUER MD May 09, 2019 11:36
[2019-05-09 15:00] VITALS: BP 132/91
[2019-05-09 19:00] VITALS: BP 140/84
[2019-05-09 23:00] VITALS: BP 128/86
[2019-05-10] VITALS (7 sets, daily range): BP systolic 107–128; BP diastolic 74–86
[2019-05-10] MEDS: CEFTAZIDIME 2 GM IVP SCH ×4 (00:29→17:30)
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
[2019-05-10] MEDS: IPRATRPIUM/ALBUTEROL 0.5/2.5MG 3 ML NEBU. NEB SCH ×3 (08:19→20:12)
[2019-05-10] MEDS: LACTOBACILLUS RHAMNOSUS GG 1 CAPSULE. PO SCH ×2 (08:46→20:15)
[2019-05-10] MEDS: ENOXAPARIN 40 MG/0.4 ML SYRINGE. SQ SCH (08:47)
--- NOTE | 2019-05-10 09:56 | PDOC ---
Provider Note Provider Note was not able to dc yesterday bec of needing PICC or midline, STable to dc to ltac today MAR done, no change Can dc to LTAC once PICC or midline in. NEeds IV abx long time per pulmo and ID Pt has no complaints FRANCISCO GERBER MD May 10, 2019 09:56
--- NOTE | 2019-05-10 12:05 | PDOC ---
Infectious Disease Note Subjective Subjective Doing ok No fevers Vital Sign Vital Signs Vital Signs Date Time Temp Pulse Resp B/P (MAP) Pulse Ox O2 Delivery O2 Flow Rate FiO2 05/10/19 11:00 98.1 82 16 128/83 (98) 97 Room Air 98.1 05/10/19 08:00 96.0 Physical Exam PHYSICAL EXAM GENERAL: Propped up in bed, alert, NAD HEENT: Pupils equal, oral cavity pink, mosist. No lesions NECK: Supple, no JVP, no lymphadenopathy. LUNGS: Diminished aeration right lung hendrickson, nonlabored HEART: S1, S2 regular. ABDOMEN: Soft and nontender EXTREMITIES: No edema, cyanosis. SKIN: without rash NEUROLOGIC: Alert, appropriate PIV Labs Micro BRONCH RES 1 Preliminary Routine respiratory claudia AFB CULTURE GRAM STAIN Final Negative 04/28/19 Blood Culture - Preliminary, Resulted NO GROWTH AFTER 5 DAYS Objective Assessment Multiple nodular cavitary lesion in the right upper lobe etiology, possibilities are tuberculosis versus melioidosis, especially [place] is [place]. -s/p bronchoscopy, 04/30. AF stain neg. bacterial culture neg. s/p CT guided biospy 05/06 Small focus of interstitial chronic inflammation and non-caseating granuloma. AFB and fungal stains neg, no malignant cells identified Weight loss. Neck and back problems, chronic. ? polycystic kidney disease on CT T spot positive Plan Plan of Care Continue ceftazidime 2gm IV Q6hrs for 3-4 weeks Off azithromycin Probiotics F/u cultures will need f/u ct chest per pulm team midline LTAC soon D/w nursing D/w friends/family and he is doing well Will need Midline Attending Co-Sign Attending Co-Sign The patient was seen and interviewed as well as examined at the bedside. The chart was reviewed. The case was discussed. Agree with the plan of care. MARC LEMUS APRN May 10, 2019 12:05 CHARLOTTE MCADAMS MD May 10, 2019 17:50
[2019-05-11] MEDS: CEFTAZIDIME 2 GM IVP SCH ×5 (00:31→23:59)
[2019-05-11 03:14] VITALS: BP 110/75
[2019-05-11] MEDS: IPRATRPIUM/ALBUTEROL 0.5/2.5MG 3 ML NEBU. NEB SCH ×4 (06:51→21:01)
[2019-05-11 07:00] VITALS: BP 124/76
--- NOTE | 2019-05-11 08:11 | PDOC ---
PULMONARY PROGRESS NOTES Subjective appears comfortable, no sob, cough, pain Vitals Vital Signs Date Time Temp Pulse Resp B/P (MAP) Pulse Ox O2 Delivery O2 Flow Rate FiO2 05/11/19 07:00 97.8 84 16 124/76 (92) 97 Room Air 97.8 05/10/19 08:00 96.0 General: Alert, No acute distress Lungs: Clear Cardiovascular: S1, S2 Abdomen: Soft, Non-tender Neuro Exam: Alert Extremities: No Edema Skin: Warm Medications Active Scripts Medications Dose Route/Sig Max Daily Dose Days Date Category No Active Prescriptions or Reported Medications Rx Impression . IMPRESSION: 1. Multiple right upper lobe nodules, largest of them is 2.2 cm, -s/p bronchoscopy, 04/30. AF stain neg. bacterial culture neg. s/p CT guided biospy 05/06 Small focus of interstitial chronic inflammation and non-caseating granuloma. AFB and fungal stains neg, no malignant cells identified Plan . await transfer to [facility] PER ID SO FAR ALL CULTURES NEGATIVE fu ct of chest in 4-6 weeks fu w pulm after ct discussed w LAVELL Jackson MD May 11, 2019 08:11
[2019-05-11] MEDS: LACTOBACILLUS RHAMNOSUS GG 1 CAPSULE. PO SCH ×2 (08:20→21:06)
[2019-05-11] MEDS: ENOXAPARIN 40 MG/0.4 ML SYRINGE. SQ SCH (08:21)
[2019-05-11 11:00] VITALS: BP 116/81
--- NOTE | 2019-05-11 11:02 | PDOC ---
PROGRESS NOTES Chief Complaint Chief Complaint pulmonary nodules clustered in the right upper lobe one of which is cavitary. s/p LEft ant lung biopsy 05/06 Cavitary lesion identified in the right upper lobe of the lung measuring 2.2 cm is unchanged. Nodular airspace opacities identified in the right upper lobe of the lung have increased in number and size compared to prior exam. There is interval increase in confluence of focal airspace opacity or mass severe protein-caloric malnutrition polycystic kidney disease clinical picture is much more indicative of infectious process rather than neoplasm or Tiffanie's. History of Present Illness History of Present Illness NO complaints Waiting for PICC sunday then LTAC has accepted and insurance has approved AUG LTAc done - i did sunday PULM CONSULT following, s/p bronch 04/30, AFB neg 04/30 PLAN: PIcc sunday then LTAC sunday ff up biopsy results AUG on chart Vitals Vitals Vital Signs Date Time Temp Pulse Resp B/P (MAP) Pulse Ox O2 Delivery O2 Flow Rate FiO2 05/11/19 08:01 Room Air 05/11/19 07:00 97.8 84 16 124/76 (92) 97 97.8 05/10/19 08:00 96.0 Physical Exam Physical Exam GENERAL: Propped up in bed, alert, NAD HEENT: Pupils equal, oral cavity pink, mosist. No lesions NECK: Supple, no JVP, no lymphadenopathy. LUNGS: Diminished aeration right lung hendrickson, nonlabored HEART: S1, S2 regular. ABDOMEN: Soft and nontender EXTREMITIES: No edema, cyanosis. SKIN: without rash NEUROLOGIC: Alert, appropriate PIV General: Alert, Oriented X3, Cooperative, No acute distress Heart: Regular rate, Normal S1 Lungs: Clear Abdomen: Normal bowel sounds, Soft, No tenderness, No hepatosplenomegaly Extremities: No cyanosis Review of Systems Review of Systems neg 14 pt reviewed Assessment and Plan Assessmemt and Plan Problems Medical Problems: (1) Dizziness Status: Acute (2) Head pain Status: Acute Comment Review of Relevant I have reviewed the following items analilia (where applicable) has been applied. Labs Microbiology 05/06/19 AFB Specimen Processing Tissue - Final, Resulted 05/06/19 Acid Fast Bacilli Culture, Resulted Pending 05/06/19 Gram Stain - Final, Resulted 05/06/19 Fungal Culture, Resulted Pending 05/06/19 Fungal Culture Result 1, Resulted Pending 04/30/19 AFB Specimen Processing Tissue - Final, Resulted 04/30/19 Acid Fast Bacilli Culture, Resulted Pending 04/30/19 Gram Stain - Final, Resulted 04/30/19 Fungal Culture - Preliminary, Resulted 04/30/19 Fungal Culture Result 1 - Preliminary, Resulted 04/28/19 Blood Culture - Final, Complete NO GROWTH AFTER 5 DAYS Medications Current Medications Prochlorperazine Edisylate (Compazine) 10 mg 1X ONCE IV Last administered on 04/28/19at 17:00; Start 04/28/19 at 17:00; Stop 04/28/19 at 17:01; Status DC Diphenhydramine HCl (Benadryl) 25 mg 1X ONCE IVP Last administered on 04/28/19at 17:24; Start 04/28/19 at 17:00; Stop 04/28/19 at 17:01; Status DC Sodium Chloride 1,000 ml @ 1,000 mls/hr 1X ONCE IV Last administered on 04/28/19at 17:23; Start 04/28/19 at 17:00; Stop 04/28/19 at 17:59; Status DC Potassium Chloride (Klor-Con) 20 meq 1X ONCE PO Last administered on 04/28/19at 18:47; Start 04/28/19 at 18:00; Stop 04/28/19 at 18:01; Status DC Ketorolac Tromethamine (Toradol 30mg Vial) 30 mg 1X ONCE IVP Last administered on 04/28/19at 18:46; Start 04/28/19 at 18:00; Stop 04/28/19 at 18:01; Status DC Azithromycin 250 ml @ 250 mls/hr 1X ONCE IV Last administered on 04/28/19at 18:47; Start 04/28/19 at 18:30; Stop 04/28/19 at 19:29; Status DC Ceftriaxone Sodium (Rocephin) 1 gm 1X ONCE IVP Last administered on 04/28/19at 18:47; Start 04/28/19 at 18:30; Stop 04/28/19 at 18:31; Status DC Iohexol (Omnipaque 350 Mg/ml) 90 ml 1X ONCE IV Last administered on 04/28/19at 19:30; Start 04/28/19 at 18:45; Stop 04/28/19 at 18:46; Status DC Info (CONTRAST GIVEN -- Rx MONITORING) 1 each PRN DAILY PRN MC SEE COMMENTS; Start 04/28/19 at 18:45; Stop 04/29/19 at 09:29; Status DC Ondansetron HCl (Zofran) 4 mg PRN Q8HRS PRN IV NAUSEA/VOMITING; Start 04/28/19 at 19:30; Stop 04/29/19 at 13:28; Status DC Fentanyl Citrate (Fentanyl 2ml Vial) 50 mcg PRN Q1HR PRN IV PAIN; Start 04/28/19 at 19:30; Stop 04/29/19 at 19:29; Status DC Acetaminophen (Tylenol) 650 mg PRN Q4HRS PRN PO FEVER; Start 04/28/19 at 19:30; Stop 04/29/19 at 19:29; Status DC Magnesium Sulfate 100 ml @ 25 mls/hr 1X ONCE IV Last administered on 04/29/19at 08:59; Start 04/29/19 at 09:00; Stop 04/29/19 at 12:59; Status DC Potassium Chloride (Klor-Con) 40 meq 1X ONCE PO Last administered on 9at 08:56; Start 04/29/19 at 09:00; Stop 04/29/19 at 09:01; Status DC Iohexol (Omnipaque 300 Mg/ml) 75 ml 1X ONCE IV Last administered on 04/29/19at 09:30; Start 04/29/19 at 09:30; Stop 04/29/19 at 09:31; Status DC Iohexol (Omnipaque 240 Mg/ml) 30 ml 1X ONCE PO ; Start 04/29/19 at 09:30; Stop 04/29/19 at 09:31; Status DC Info (CONTRAST GIVEN -- Rx MONITORING) 1 each PRN DAILY PRN MC SEE COMMENTS; Start 04/29/19 at 09:30; Stop 05/01/19 at 09:29; Status DC Albuterol Sulfate (Ventolin Neb Soln) 2.5 mg PRN 1X PRN NEB SHORTNESS OF BREATH Last administered on 04/30/19at 08:59; Start 04/29/19 at 11:45; Stop 04/30/19 at 11:44; Status DC Lidocaine HCl (Lidocaine 2% Viscous) 100 ml PRN 1X PRN MM MOUTH PAIN Last administered on 04/30/19at 09:00; Start 04/29/19 at 11:45; Stop 04/30/19 at 11:44; Status DC Lidocaine HCl (Lidocaine 1% 20ml Vial) 20 ml PRN 1X PRN INJ SEE COMMENTS Last administered on 04/30/19at 09:00; Start 04/29/19 at 11:45; Stop 04/30/19 at 11:44; Status DC Epinephrine HCl (Adrenalin) 1 mg PRN 1X PRN INJ SEE COMMENTS; Start 04/29/19 at 11:45; Stop 04/30/19 at 11:44; Status DC Lidocaine HCl 50 ml PRN 1X PRN MM SEE COMMENTS Last administered on 04/30/19at 09:00; Start 04/29/19 at 11:45; Stop 04/30/19 at 11:44; Status DC Ringer's Solution 1,000 ml @ 50 mls/hr Q20H IV Last administered on 04/30/19at 08:00; Start 04/30/19 at 07:00; Stop 04/30/19 at 18:59; Status DC Sodium Chloride (Normal Saline Flush) 3 ml QSHIFT PRN IV AFTER MEDS AND BLOOD DRAWS; Start 04/29/19 at 13:30 Sodium Chloride 1,000 ml @ 100 mls/hr Q10H IV Last administered on 05/07/19at 06:12; Start 04/29/19 at 13:20; Stop 05/07/19 at 11:42; Status DC Ondansetron HCl (Zofran) 4 mg PRN Q4HRS PRN IV NAUSEA/VOMITING; Start 04/29/19 at 13:30 Zolpidem Tartrate (Ambien) 5 mg PRN QHS PRN PO INSOMNIA; Start 04/29/19 at 13:30 Acetaminophen (Tylenol) 650 mg PRN Q4HRS PRN PO TEMP OVER 100.4F OR MILD PAIN Last administered on 05/06/19at 20:55; Start 04/29/19 at 13:30 Al Hydroxide/Mg Hydroxide (Mylanta Plus Xs) 30 ml PRN DAILY PRN PO HEARTBURN / GAS; Start 04/29/19 at 13:30 Clonidine HCl (Catapres) 0.1 mg PRN Q6HRS PRN PO SBP>160 OR DBP>90; Start 04/29/19 at 13:30 Docusate Sodium (Colace) 100 mg PRN BID PRN PO HARD STOOLS; Start 04/29/19 at 13:30 Albuterol/ Ipratropium (Duoneb) 3 ml Q4H NEB Last administered on 04/29/19at 19:59; Start 04/29/19 at 13:30; Stop 04/29/19 at 20:06; Status DC Guaifenesin (Robitussin) 200 mg PRN Q4HRS PRN PO COUGH; Start 04/29/19 at 13:30 Lorazepam (Ativan) 0.5 mg PRN Q4HRS PRN PO ANXIETY / AGITATION; Start 04/29/19 at 13:30 Enoxaparin Sodium (Lovenox 40mg Syringe) 40 mg DAILY SQ Last administered on 1 07/12/18at 08:21; Start 04/30/19 at 09:00 Albuterol/ Ipratropium (Duoneb) 3 ml QID NEB Last administered on 05/11/19at 06:51; Start 04/30/19 at 09:00 Epinephrine HCl (Adrenalin) 1 mg STK-MED ONCE .ROUTE ; Start 04/30/19 at 07:15; Stop 04/30/19 at 07:15; Status DC Lidocaine HCl (Lidocaine 1% 20ml Vial) 20 ml STK-MED ONCE .ROUTE ; Start 04/30/19 at 07:15; Stop 04/30/19 at 07:15; Status DC Lidocaine HCl (Lidocaine 2% Viscous) 100 ml STK-MED ONCE .ROUTE ; Start 04/30/19 at 07:15; Stop 04/30/19 at 07:15; Status DC Lidocaine HCl 50 ml STK-MED ONCE .ROUTE ; Start 04/30/19 at 07:15; Stop 04/30/19 at 07:15; Status DC Propofol (Diprivan) 400 mg STK-MED ONCE IV ; Start 04/30/19 at 12:00; Stop 04/30/19 at 13:32; Status DC Azithromycin 500 mg/Sodium Chloride 250 ml @ 250 mls/hr Q24H IV Last administered on 05/02/19at 14:56; Start 04/30/19 at 16:00; Stop 05/03/19 at 13:56; Status DC Ceftriaxone Sodium (Rocephin) 1 gm Q24H IVP Last administered on 05/06/19at 16:22; Start 04/30/19 at 16:00; Stop 05/07/19 at 12:40; Status DC Lactobacillus Rhamnosus (Culturelle) 1 cap BID PO Last administered on 05/11/19at 08:20; Start 05/01/19 at 10:00 Midazolam HCl (Versed) 2 mg STK-MED ONCE .ROUTE ; Start 05/06/19 at 12:57; Stop 05/06/19 at 12:57; Status DC Fentanyl Citrate (Fentanyl 2ml Vial) 100 mcg STK-MED ONCE .ROUTE ; Start 05/06/19 at 12:57; Stop 05/06/19 at 12:57; Status DC Lidocaine HCl (Buffered Lidocaine 1%) 3 ml STK-MED ONCE .ROUTE ; Start 05/06/19 at 12:58; Stop 05/06/19 at 12:58; Status DC Lidocaine HCl (Buffered Lidocaine 1%) 6 ml 1X ONCE IJ Last administered on 05/06/19at 13:30; Start 05/06/19 at 13:30; Stop 05/06/19 at 13:34; Status DC Midazolam HCl (Versed) 1 mg 1X ONCE IV Last administered on 05/06/19at 13:14; Start 05/06/19 at 13:30; Stop 05/06/19 at 13:34; Status DC Fentanyl Citrate (Fentanyl 2ml Vial) 50 mcg 1X ONCE IV Last administered on 05/06/19at 13:34; Start 05/06/19 at 13:30; Stop 05/06/19 at 13:34; Status DC Acetaminophen/ Hydrocodone Bitart (Lortab 5/325) 1 tab PRN Q4HRS PRN PO PAIN MODERATE TO SEVERE; Start 05/07/19 at 09:15 Non-Formulary Medication 1 ea Q6HRS IV Last administered on 05/08/19at 06:17; Start 05/07/19 at 10:00; Stop 05/08/19 at 10:18; Status DC Ceftazidime (Fortaz) 2 gm Q6HRS IVP Last administered on 05/11/19at 05:56; Start 05/08/19 at 12:00 Ceftazidime (Fortaz) 2 gm STK-MED ONCE IVP ; Start 05/07/19 at 12:00; Stop 05/08/19 at 10:19; Status DC Ceftazidime (Fortaz) 2 gm STK-MED ONCE IVP ; Start 05/07/19 at 12:00; Stop 05/08/19 at 10:19; Status DC Ceftazidime (Fortaz) 2 gm STK-MED ONCE IVP ; Start 05/08/19 at 06:00; Stop 05/08/19 at 10:20; Status DC Ceftazidime (Fortaz) 2 gm STK-MED ONCE IVP ; Start 05/08/19 at 06:00; Stop 05/08/19 at 10:20; Status DC Active Scripts Active No Active Prescriptions or Reported Medications Vitals/I & O Vital Sign - Last 24 Hours 05/10/19 05/10/19 05/10/19 05/10/19 15:00 15:04 19:15 19:30 Temp 97.6 98.1 97.6 98.1 Pulse 76 92 Resp 18 B/P (MAP) 125/86 (99) 115/74 (88) Pulse Ox 98 99 96 O2 Delivery Room Air Room Air Room Air Room Air 05/10/19 05/10/19 05/11/19 05/11/19 20:11 23:10 03:14 06:51 Temp 97.7 98.1 97.7 98.1 Pulse 96 94 Resp 18 18 B/P (MAP) 109/77 (88) 110/75 (87) Pulse Ox 96 96 97 96 O2 Delivery Room Air Room Air Room Air Room Air 05/11/19 05/11/19 07:00 08:01 Temp 97.8 97.8 Pulse 84 Resp 16 B/P (MAP) 124/76 (92) Pulse Ox 97 O2 Delivery Room Air Room Air Intake and Output 05/10/19 05/10/19 05/11/19 15:00 23:00 07:00 Intake Total 540 ml Balance 540 ml FRANCISCO GERBER MD May 11, 2019 11:02
[2019-05-11 15:00] VITALS: BP 118/76
[2019-05-11 19:15] VITALS: BP 146/92
[2019-05-11 23:07] VITALS: BP 115/70
[2019-05-12 03:06] VITALS: BP 110/74
[2019-05-12 04:37] LABS: BASO % 1 % (0-3); EOS # 0.4 x10^3/uL (0.0-0.7); EOS % 8 % (0-3); HEMATOCRIT 42.3 % (39.0-53.0); HEMOGLOBIN 14.3 g/dL (13.0-17.5); LYMPH # 1.3 x10^3/uL (1.0-4.8); LYMPH % 24 % (24-48); MEAN CORPUSCULAR HEMOGLOBIN 28 pg (25-35); MEAN CORPUSCULAR HGB CONC 34 g/dL (31-37); MEAN CORPUSCULAR VOLUME 82 fL (79-100); MONO # 0.5 x10^3/uL (0.0-1.1); MONO % 8 % (0-9); NEUT # 3.2 x10^3/uL (1.8-7.7); NEUT % 59 % (31-73); PLATELET COUNT 216 x10^3/uL (140-400); RED BLOOD COUNT 5.15 x10^6/uL (4.30-5.70); RED CELL DISTRIBUTION WIDTH 13.3 % (11.5-14.5); WHITE BLOOD COUNT 5.4 x10^3/uL (4.0-11.0)
[2019-05-12 05:00] LABS: ALBUMIN 2.9 g/dL (3.4-5.0); ALBUMIN/GLOBULIN RATIO 0.7 (1.0-1.7); CALCIUM 8.6 mg/dL (8.5-10.1); CREATININE 0.8 mg/dL (0.7-1.3); GFR 111.3; POTASSIUM 4.1 mmol/L (3.5-5.1); TOTAL BILIRUBIN 0.3 mg/dL (0.2-1.0); TOTAL PROTEIN 7.3 g/dL (6.4-8.2)
[2019-05-12] MEDS: CEFTAZIDIME 2 GM IVP SCH ×3 (05:58→17:44)
[2019-05-12 07:00] VITALS: BP 111/77
[2019-05-12] MEDS: ENOXAPARIN 40 MG/0.4 ML SYRINGE. SQ SCH (07:28)
--- NOTE | 2019-05-12 07:29 | NUR ---
Held for Picc placement
[2019-05-12] MEDS: IPRATRPIUM/ALBUTEROL 0.5/2.5MG 3 ML NEBU. NEB SCH ×3 (08:12→15:12)
[2019-05-12 08:16] VITALS: BP 111/77
[2019-05-12] MEDS: LACTOBACILLUS RHAMNOSUS GG 1 CAPSULE. PO SCH (08:20)
--- NOTE | 2019-05-12 08:37 | PDOC ---
PROGRESS NOTES Chief Complaint Chief Complaint pulmonary nodules clustered in the right upper lobe one of which is cavitary. s/p LEft ant lung biopsy 05/06 Cavitary lesion identified in the right upper lobe of the lung measuring 2.2 cm is unchanged.pulmonary nodules clustered in the right upper lobe one of which is cavitary. //favored to be infectious melioidosis vs TB severe protein-caloric malnutrition possible polycystic kidney disease clinical picture is much more indicative of infectious process rather than neoplasm or Tiffanie's. History of Present Illness History of Present Illness Mr Belcher is a 34-year-old male from [facility] who does not speak Slovenian. It was difficult to obtain much history from the patient and I was able to get hold of his emergency management director who can speak a little bit Slovenian. According to him, the patient was brought into the hospital as he was complaining of dizziness. He does not complain of much cough, fever or night sweats. He does not know whether he had a PPD done when he arrived in [place] 3 years ago. There are no obvious TB exposures. The patient underwent chest x-ray, which was abnormal with infiltrate in the right upper lobe. As a result, he underwent CTA chest. He had numerous nodules in the right upper lobe, largest of them is in the right lung apex, which is cavitary in about 2.2 cm in size. The patient was started on antibiotic Rocephin along with Zithromax. He underwent bronchoscopy 04/30/19 with acid fast staining, being seen by pulmonology and ID. He states he has been told he has kidney, liver, and lung disease previously. LFTs up a bit, transitioning to ceftazidime. PICC placed, plan for LTAC for 3-4 weeks IV antibiotics and transition to PO antibiotics for presumptive melioidosis. He is eating well, has his transport assistant present in room with him. Vitals Vitals Vital Signs Date Time Temp Pulse Resp B/P (MAP) Pulse Ox O2 Delivery O2 Flow Rate FiO2 05/12/19 08:16 97.9 86 16 111/77 (88) 97 97.9 05/12/19 08:13 Room Air Physical Exam Physical Exam GENERAL: Propped up in bed, alert, NAD HEENT: Pupils equal, oral cavity pink, mosist. No lesions NECK: Supple, no JVP, no lymphadenopathy. LUNGS: Diminished aeration right lung hendrickson, nonlabored HEART: S1, S2 regular. ABDOMEN: Soft and nontender EXTREMITIES: No edema, cyanosis. SKIN: without rash NEUROLOGIC: Alert, appropriate PIV General: Alert, Oriented X3, Cooperative, No acute distress Heart: Regular rate, Normal S1 Lungs: Clear Abdomen: Normal bowel sounds, Soft, No tenderness, No hepatosplenomegaly Extremities: No cyanosis Labs LABS Laboratory Tests Test 05/12/19 04:15 White Blood Count 5.4 x10^3/uL (4.0-11.0) Red Blood Count 5.15 x10^6/uL (4.30-5.70) Hemoglobin 14.3 g/dL (13.0-17.5) Hematocrit 42.3 % (39.0-53.0) Mean Corpuscular Volume 82 fL (79-100) Mean Corpuscular Hemoglobin 28 pg (25-35) Mean Corpuscular Hemoglobin Concent 34 g/dL (31-37) Red Cell Distribution Width 13.3 % (11.5-14.5) Platelet Count 216 x10^3/uL (140-400) Neutrophils (%) (Auto) 59 % (31-73) Lymphocytes (%) (Auto) 24 % (24-48) Monocytes (%) (Auto) 8 % (0-9) Eosinophils (%) (Auto) 8 % (0-3) Basophils (%) (Auto) 1 % (0-3) Neutrophils # (Auto) 3.2 x10^3/uL (1.8-7.7) Lymphocytes # (Auto) 1.3 x10^3/uL (1.0-4.8) Monocytes # (Auto) 0.5 x10^3/uL (0.0-1.1) Eosinophils # (Auto) 0.4 x10^3/uL (0.0-0.7) Basophils # (Auto) 0.0 x10^3/uL (0.0-0.2) Sodium Level 140 mmol/L (136-145) Potassium Level 4.1 mmol/L (3.5-5.1) Chloride Level 106 mmol/L (98-107) Carbon Dioxide Level 26 mmol/L (21-32) Anion Gap 8 (6-14) Blood Urea Nitrogen 17 mg/dL (8-26) Creatinine 0.8 mg/dL (0.7-1.3) Estimated GFR (Cockcroft-Gault) 111.3 BUN/Creatinine Ratio 21 (6-20) Glucose Level 97 mg/dL (70-99) Calcium Level 8.6 mg/dL (8.5-10.1) Total Bilirubin 0.3 mg/dL (0.2-1.0) Aspartate Amino Transf (AST/SGOT) 66 U/L (15-37) Alanine Aminotransferase (ALT/SGPT) 85 U/L (16-63) Alkaline Phosphatase 98 U/L (46-116) Total Protein 7.3 g/dL (6.4-8.2) Albumin 2.9 g/dL (3.4-5.0) Albumin/Globulin Ratio 0.7 (1.0-1.7) Assessment and Plan Assessmemt and Plan Problems Medical Problems: (1) Dizziness Status: Acute (2) Head pain Status: Acute Comment Review of Relevant I have reviewed the following items analilia (where applicable) has been applied. Labs Laboratory Tests Test 05/12/19 04:15 White Blood Count 5.4 x10^3/uL (4.0-11.0) Red Blood Count 5.15 x10^6/uL (4.30-5.70) Hemoglobin 14.3 g/dL (13.0-17.5) Hematocrit 42.3 % (39.0-53.0) Mean Corpuscular Volume 82 fL (79-100) Mean Corpuscular Hemoglobin 28 pg (25-35) Mean Corpuscular Hemoglobin Concent 34 g/dL (31-37) Red Cell Distribution Width 13.3 % (11.5-14.5) Platelet Count 216 x10^3/uL (140-400) Neutrophils (%) (Auto) 59 % (31-73) Lymphocytes (%) (Auto) 24 % (24-48) Monocytes (%) (Auto) 8 % (0-9) Eosinophils (%) (Auto) 8 % (0-3) Basophils (%) (Auto) 1 % (0-3) Neutrophils # (Auto) 3.2 x10^3/uL (1.8-7.7) Lymphocytes # (Auto) 1.3 x10^3/uL (1.0-4.8) Monocytes # (Auto) 0.5 x10^3/uL (0.0-1.1) Eosinophils # (Auto) 0.4 x10^3/uL (0.0-0.7) Basophils # (Auto) 0.0 x10^3/uL (0.0-0.2) Sodium Level 140 mmol/L (136-145) Potassium Level 4.1 mmol/L (3.5-5.1) Chloride Level 106 mmol/L (98-107) Carbon Dioxide Level 26 mmol/L (21-32) Anion Gap 8 (6-14) Blood Urea Nitrogen 17 mg/dL (8-26) Creatinine 0.8 mg/dL (0.7-1.3) Estimated GFR (Cockcroft-Gault) 111.3 BUN/Creatinine Ratio 21 (6-20) Glucose Level 97 mg/dL (70-99) Calcium Level 8.6 mg/dL (8.5-10.1) Total Bilirubin 0.3 mg/dL (0.2-1.0) Aspartate Amino Transf (AST/SGOT) 66 U/L (15-37) Alanine Aminotransferase (ALT/SGPT) 85 U/L (16-63) Alkaline Phosphatase 98 U/L (46-116) Total Protein 7.3 g/dL (6.4-8.2) Albumin 2.9 g/dL (3.4-5.0) Albumin/Globulin Ratio 0.7 (1.0-1.7) Laboratory Tests Test 05/12/19 04:15 White Blood Count 5.4 x10^3/uL (4.0-11.0) Red Blood Count 5.15 x10^6/uL (4.30-5.70) Hemoglobin 14.3 g/dL (13.0-17.5) Hematocrit 42.3 % (39.0-53.0) Mean Corpuscular Volume 82 fL (79-100) Mean Corpuscular Hemoglobin 28 pg (25-35) Mean Corpuscular Hemoglobin Concent 34 g/dL (31-37) Red Cell Distribution Width 13.3 % (11.5-14.5) Platelet Count 216 x10^3/uL (140-400) Neutrophils (%) (Auto) 59 % (31-73) Lymphocytes (%) (Auto) 24 % (24-48) Monocytes (%) (Auto) 8 % (0-9) Eosinophils (%) (Auto) 8 % (0-3) Basophils (%) (Auto) 1 % (0-3) Neutrophils # (Auto) 3.2 x10^3/uL (1.8-7.7) Lymphocytes # (Auto) 1.3 x10^3/uL (1.0-4.8) Monocytes # (Auto) 0.5 x10^3/uL (0.0-1.1) Eosinophils # (Auto) 0.4 x10^3/uL (0.0-0.7) Basophils # (Auto) 0.0 x10^3/uL (0.0-0.2) Sodium Level 140 mmol/L (136-145) Potassium Level 4.1 mmol/L (3.5-5.1) Chloride Level 106 mmol/L (98-107) Carbon Dioxide Level 26 mmol/L (21-32) Anion Gap 8 (6-14) Blood Urea Nitrogen 17 mg/dL (8-26) Creatinine 0.8 mg/dL (0.7-1.3) Estimated GFR (Cockcroft-Gault) 111.3 BUN/Creatinine Ratio 21 (6-20) Glucose Level 97 mg/dL (70-99) Calcium Level 8.6 mg/dL (8.5-10.1) Total Bilirubin 0.3 mg/dL (0.2-1.0) Aspartate Amino Transf (AST/SGOT) 66 U/L (15-37) Alanine Aminotransferase (ALT/SGPT) 85 U/L (16-63) Alkaline Phosphatase 98 U/L (46-116) Total Protein 7.3 g/dL (6.4-8.2) Albumin 2.9 g/dL (3.4-5.0) Albumin/Globulin Ratio 0.7 (1.0-1.7) Microbiology 05/06/19 AFB Specimen Processing Tissue - Final, Resulted 05/06/19 Acid Fast Bacilli Culture, Resulted Pending 05/06/19 Gram Stain - Final, Resulted 05/06/19 Fungal Culture, Resulted Pending 05/06/19 Fungal Culture Result 1, Resulted Pending 04/30/19 AFB Specimen Processing Tissue - Final, Resulted 04/30/19 Acid Fast Bacilli Culture, Resulted Pending 04/30/19 Gram Stain - Final, Resulted 04/30/19 Fungal Culture - Preliminary, Resulted 04/30/19 Fungal Culture Result 1 - Preliminary, Resulted 04/28/19 Blood Culture - Final, Complete NO GROWTH AFTER 5 DAYS Medications Current Medications Prochlorperazine Edisylate (Compazine) 10 mg 1X ONCE IV Last administered on 04/28/19at 17:00; Start 04/28/19 at 17:00; Stop 04/28/19 at 17:01; Status DC Diphenhydramine HCl (Benadryl) 25 mg 1X ONCE IVP Last administered on 1 06/28/18at 17:24; Start 04/28/19 at 17:00; Stop 04/28/19 at 17:01; Status DC Sodium Chloride 1,000 ml @ 1,000 mls/hr 1X ONCE IV Last administered on 04/28/19at 17:23; Start 04/28/19 at 17:00; Stop 04/28/19 at 17:59; Status DC Potassium Chloride (Klor-Con) 20 meq 1X ONCE PO Last administered on 04/28/19at 18:47; Start 04/28/19 at 18:00; Stop 04/28/19 at 18:01; Status DC Ketorolac Tromethamine (Toradol 30mg Vial) 30 mg 1X ONCE IVP Last administered on 04/28/19at 18:46; Start 04/28/19 at 18:00; Stop 04/28/19 at 18:01; Status DC Azithromycin 250 ml @ 250 mls/hr 1X ONCE IV Last administered on 04/28/19at 18:47; Start 04/28/19 at 18:30; Stop 04/28/19 at 19:29; Status DC Ceftriaxone Sodium (Rocephin) 1 gm 1X ONCE IVP Last administered on 04/28/19at 18:47; Start 04/28/19 at 18:30; Stop 04/28/19 at 18:31; Status DC Iohexol (Omnipaque 350 Mg/ml) 90 ml 1X ONCE IV Last administered on 04/28/19at 19:30; Start 04/28/19 at 18:45; Stop 04/28/19 at 18:46; Status DC Info (CONTRAST GIVEN -- Rx MONITORING) 1 each PRN DAILY PRN MC SEE COMMENTS; Start 04/28/19 at 18:45; Stop 04/29/19 at 09:29; Status DC Ondansetron HCl (Zofran) 4 mg PRN Q8HRS PRN IV NAUSEA/VOMITING; Start 04/28/19 at 19:30; Stop 04/29/19 at 13:28; Status DC Fentanyl Citrate (Fentanyl 2ml Vial) 50 mcg PRN Q1HR PRN IV PAIN; Start 04/28/19 at 19:30; Stop 04/29/19 at 19:29; Status DC Acetaminophen (Tylenol) 650 mg PRN Q4HRS PRN PO FEVER; Start 04/28/19 at 19:30; Stop 04/29/19 at 19:29; Status DC Magnesium Sulfate 100 ml @ 25 mls/hr 1X ONCE IV Last administered on 04/29/19at 08:59; Start 04/29/19 at 09:00; Stop 04/29/19 at 12:59; Status DC Potassium Chloride (Klor-Con) 40 meq 1X ONCE PO Last administered on 04/29/19at 08:56; Start 04/29/19 at 09:00; Stop 04/29/19 at 09:01; Status DC Iohexol (Omnipaque 300 Mg/ml) 75 ml 1X ONCE IV Last administered on 04/29/19at 09:30; Start 04/29/19 at 09:30; Stop 04/29/19 at 09:31; Status DC Iohexol (Omnipaque 240 Mg/ml) 30 ml 1X ONCE PO ; Start 04/29/19 at 09:30; Stop 04/29/19 at 09:31; Status DC Info (CONTRAST GIVEN -- Rx MONITORING) 1 each PRN DAILY PRN MC SEE COMMENTS; Start 04/29/19 at 09:30; Stop 05/01/19 at 09:29; Status DC Albuterol Sulfate (Ventolin Neb Soln) 2.5 mg PRN 1X PRN NEB SHORTNESS OF BREATH Last administered on 04/30/19at 08:59; Start 04/29/19 at 11:45; Stop 04/30/19 at 11:44; Status DC Lidocaine HCl (Lidocaine 2% Viscous) 100 ml PRN 1X PRN MM MOUTH PAIN Last administered on 04/30/19at 09:00; Start 04/29/19 at 11:45; Stop 04/30/19 at 11:44; Status DC Lidocaine HCl (Lidocaine 1% 20ml Vial) 20 ml PRN 1X PRN INJ SEE COMMENTS Last administered on 04/30/19at 09:00; Start 04/29/19 at 11:45; Stop 04/30/19 at 11:44; Status DC Epinephrine HCl (Adrenalin) 1 mg PRN 1X PRN INJ SEE COMMENTS; Start 04/29/19 at 11:45; Stop 04/30/19 at 11:44; Status DC Lidocaine HCl 50 ml PRN 1X PRN MM SEE COMMENTS Last administered on 04/30/19at 09:00; Start 04/29/19 at 11:45; Stop 04/30/19 at 11:44; Status DC Ringer's Solution 1,000 ml @ 50 mls/hr Q20H IV Last administered on 04/30/19at 08:00; Start 04/30/19 at 07:00; Stop 04/30/19 at 18:59; Status DC Sodium Chloride (Normal Saline Flush) 3 ml QSHIFT PRN IV AFTER MEDS AND BLOOD DRAWS; Start 04/29/19 at 13:30 Sodium Chloride 1,000 ml @ 100 mls/hr Q10H IV Last administered on 05/07/19at 06:12; Start 04/29/19 at 13:20; Stop 05/07/19 at 11:42; Status DC Ondansetron HCl (Zofran) 4 mg PRN Q4HRS PRN IV NAUSEA/VOMITING; Start 04/29/19 at 13:30 Zolpidem Tartrate (Ambien) 5 mg PRN QHS PRN PO INSOMNIA; Start 04/29/19 at 13:30 Acetaminophen (Tylenol) 650 mg PRN Q4HRS PRN PO TEMP OVER 100.4F OR MILD PAIN Last administered on 05/06/19at 20:55; Start 04/29/19 at 13:30 Al Hydroxide/Mg Hydroxide (Mylanta Plus Xs) 30 ml PRN DAILY PRN PO HEARTBURN / GAS; Start 04/29/19 at 13:30 Clonidine HCl (Catapres) 0.1 mg PRN Q6HRS PRN PO SBP>160 OR DBP>90; Start 04/29/19 at 13:30 Docusate Sodium (Colace) 100 mg PRN BID PRN PO HARD STOOLS; Start 04/29/19 at 13:30 Albuterol/ Ipratropium (Duoneb) 3 ml Q4H NEB Last administered on 04/29/19at 19:59; Start 04/29/19 at 13:30; Stop 04/29/19 at 20:06; Status DC Guaifenesin (Robitussin) 200 mg PRN Q4HRS PRN PO COUGH; Start 04/29/19 at 13:30 Lorazepam (Ativan) 0.5 mg PRN Q4HRS PRN PO ANXIETY / AGITATION; Start 04/29/19 at 13:30 Enoxaparin Sodium (Lovenox 40mg Syringe) 40 mg DAILY SQ Last administered on 05/11/19at 08:21; Start 04/30/19 at 09:00 Albuterol/ Ipratropium (Duoneb) 3 ml QID NEB Last administered on 05/12/19at 08:12; Start 04/30/19 at 09:00 Epinephrine HCl (Adrenalin) 1 mg STK-MED ONCE .ROUTE ; Start 04/30/19 at 07:15; Stop 04/30/19 at 07:15; Status DC Lidocaine HCl (Lidocaine 1% 20ml Vial) 20 ml STK-MED ONCE .ROUTE ; Start 04/30/19 at 07:15; Stop 04/30/19 at 07:15; Status DC Lidocaine HCl (Lidocaine 2% Viscous) 100 ml STK-MED ONCE .ROUTE ; Start 04/30/19 at 07:15; Stop 04/30/19 at 07:15; Status DC Lidocaine HCl 50 ml STK-MED ONCE .ROUTE ; Start 04/30/19 at 07:15; Stop 04/30/19 at 07:15; Status DC Propofol (Diprivan) 400 mg STK-MED ONCE IV ; Start 04/30/19 at 12:00; Stop 04/30/19 at 13:32; Status DC Azithromycin 500 mg/Sodium Chloride 250 ml @ 250 mls/hr Q24H IV Last administered on 05/02/19at 14:56; Start 04/30/19 at 16:00; Stop 05/03/19 at 13:56; Status DC Ceftriaxone Sodium (Rocephin) 1 gm Q24H IVP Last administered on 05/06/19at 16:22; Start 04/30/19 at 16:00; Stop 05/07/19 at 12:40; Status DC Lactobacillus Rhamnosus (Culturelle) 1 cap BID PO Last administered on 05/12/19at 08:20; Start 05/01/19 at 10:00 Midazolam HCl (Versed) 2 mg STK-MED ONCE .ROUTE ; Start 05/06/19 at 12:57; Stop 05/06/19 at 12:57; Status DC Fentanyl Citrate (Fentanyl 2ml Vial) 100 mcg STK-MED ONCE .ROUTE ; Start 05/06/19 at 12:57; Stop 05/06/19 at 12:57; Status DC Lidocaine HCl (Buffered Lidocaine 1%) 3 ml STK-MED ONCE .ROUTE ; Start 05/06/19 at 12:58; Stop 05/06/19 at 12:58; Status DC Lidocaine HCl (Buffered Lidocaine 1%) 6 ml 1X ONCE IJ Last administered on 05/06/19at 13:30; Start 05/06/19 at 13:30; Stop 05/06/19 at 13:34; Status DC Midazolam HCl (Versed) 1 mg 1X ONCE IV Last administered on 05/06/19at 13:14; Start 05/06/19 at 13:30; Stop 05/06/19 at 13:34; Status DC Fentanyl Citrate (Fentanyl 2ml Vial) 50 mcg 1X ONCE IV Last administered on 05/06/19at 13:34; Start 05/06/19 at 13:30; Stop 05/06/19 at 13:34; Status DC Acetaminophen/ Hydrocodone Bitart (Lortab 5/325) 1 tab PRN Q4HRS PRN PO PAIN MODERATE TO SEVERE; Start 05/07/19 at 09:15 Non-Formulary Medication 1 ea Q6HRS IV Last administered on 05/08/19at 06:17; Start 05/07/19 at 10:00; Stop 05/08/19 at 10:18; Status DC Ceftazidime (Fortaz) 2 gm Q6HRS IVP Last administered on 05/12/19at 05:58; Start 05/08/19 at 12:00 Ceftazidime (Fortaz) 2 gm STK-MED ONCE IVP ; Start 05/07/19 at 12:00; Stop 05/08/19 at 10:19; Status DC Ceftazidime (Fortaz) 2 gm STK-MED ONCE IVP ; Start 05/07/19 at 12:00; Stop 05/08/19 at 10:19; Status DC Ceftazidime (Fortaz) 2 gm STK-MED ONCE IVP ; Start 05/08/19 at 06:00; Stop 05/08/19 at 10:20; Status DC Ceftazidime (Fortaz) 2 gm STK-MED ONCE IVP ; Start 05/08/19 at 06:00; Stop 05/08/19 at 10:20; Status DC Active Scripts Active No Active Prescriptions or Reported Medications Vitals/I & O Vital Sign - Last 24 Hours 05/11/19 05/11/19 05/11/19 05/11/19 11:00 11:14 15:00 19:15 Temp 98.1 97.9 98.5 98.1 97.9 98.5 Pulse 78 79 83 Resp 16 18 18 B/P (MAP) 116/81 (93) 118/76 (90) 146/92 (110) Pulse Ox 97 97 98 99 O2 Delivery Room Air Room Air Room Air Room Air 05/11/19 05/11/19 05/11/19 05/12/19 20:30 21:02 23:07 03:06 Temp 98.2 98.3 98.2 98.3 Pulse 83 82 Resp 16 16 B/P (MAP) 115/70 (85) 110/74 (86) Pulse Ox 98 96 97 O2 Delivery Room Air Room Air Room Air Room Air 05/12/19 05/12/19 05/12/19 07:00 08:13 08:16 Temp 97.9 97.9 97.9 97.9 Pulse 86 86 Resp 16 16 B/P (MAP) 111/77 (88) 111/77 (88) Pulse Ox 86 100 97 O2 Delivery Room Air Room Air Intake and Output 05/11/19 05/11/19 05/12/19 15:00 23:00 07:00 Intake Total 300 ml 360 ml Balance 300 ml 360 ml MARTHA MARCOS MD May 12, 2019 08:37
--- NOTE | 2019-05-12 09:14 | PDOC ---
Infectious Disease Note Subjective Subjective Doing ok No fevers Has been eating and breathing well Vital Sign Vital Signs Vital Signs Date Time Temp Pulse Resp B/P (MAP) Pulse Ox O2 Delivery O2 Flow Rate FiO2 05/12/19 08:16 97.9 86 16 111/77 (88) 97 97.9 05/12/19 08:13 Room Air Physical Exam PHYSICAL EXAM GENERAL: Propped up in bed, alert, NAD - looks well HEENT: Pupils equal, oral cavity pink, mosist. No lesions NECK: Supple, no JVP, no lymphadenopathy. LUNGS: Diminished aeration right lung hendrickson, nonlabored HEART: S1, S2 regular. ABDOMEN: Soft and nontender EXTREMITIES: No edema, cyanosis. SKIN: without rash NEUROLOGIC: Alert, appropriate PIV Labs Lab Laboratory Tests Test 05/12/19 04:15 White Blood Count 5.4 x10^3/uL (4.0-11.0) Red Blood Count 5.15 x10^6/uL (4.30-5.70) Hemoglobin 14.3 g/dL (13.0-17.5) Hematocrit 42.3 % (39.0-53.0) Mean Corpuscular Volume 82 fL (79-100) Mean Corpuscular Hemoglobin 28 pg (25-35) Mean Corpuscular Hemoglobin Concent 34 g/dL (31-37) Red Cell Distribution Width 13.3 % (11.5-14.5) Platelet Count 216 x10^3/uL (140-400) Neutrophils (%) (Auto) 59 % (31-73) Lymphocytes (%) (Auto) 24 % (24-48) Monocytes (%) (Auto) 8 % (0-9) Eosinophils (%) (Auto) 8 % (0-3) Basophils (%) (Auto) 1 % (0-3) Neutrophils # (Auto) 3.2 x10^3/uL (1.8-7.7) Lymphocytes # (Auto) 1.3 x10^3/uL (1.0-4.8) Monocytes # (Auto) 0.5 x10^3/uL (0.0-1.1) Eosinophils # (Auto) 0.4 x10^3/uL (0.0-0.7) Basophils # (Auto) 0.0 x10^3/uL (0.0-0.2) Sodium Level 140 mmol/L (136-145) Potassium Level 4.1 mmol/L (3.5-5.1) Chloride Level 106 mmol/L (98-107) Carbon Dioxide Level 26 mmol/L (21-32) Anion Gap 8 (6-14) Blood Urea Nitrogen 17 mg/dL (8-26) Creatinine 0.8 mg/dL (0.7-1.3) Estimated GFR (Cockcroft-Gault) 111.3 BUN/Creatinine Ratio 21 (6-20) Glucose Level 97 mg/dL (70-99) Calcium Level 8.6 mg/dL (8.5-10.1) Total Bilirubin 0.3 mg/dL (0.2-1.0) Aspartate Amino Transf (AST/SGOT) 66 U/L (15-37) Alanine Aminotransferase (ALT/SGPT) 85 U/L (16-63) Alkaline Phosphatase 98 U/L (46-116) Total Protein 7.3 g/dL (6.4-8.2) Albumin 2.9 g/dL (3.4-5.0) Albumin/Globulin Ratio 0.7 (1.0-1.7) Micro Microbiology 05/06/19 AFB Specimen Processing Tissue - Final, Resulted 05/06/19 Acid Fast Bacilli Culture, Resulted Pending 05/06/19 Gram Stain - Final, Resulted 05/06/19 Fungal Culture, Resulted Pending 05/06/19 Fungal Culture Result 1, Resulted Pending 04/30/19 AFB Specimen Processing Tissue - Final, Resulted 04/30/19 Acid Fast Bacilli Culture, Resulted Pending 04/30/19 Gram Stain - Final, Resulted 04/30/19 Fungal Culture - Preliminary, Resulted 04/30/19 Fungal Culture Result 1 - Preliminary, Resulted 04/28/19 Blood Culture - Final, Complete NO GROWTH AFTER 5 DAYS Objective Assessment Multiple nodular cavitary lesion in the right upper lobe etiology, possibilities are tuberculosis versus melioidosis, especially [place] is [place]. -s/p bronchoscopy, 04/30. AF stain neg. bacterial culture neg. s/p CT guided biospy 05/06 Small focus of interstitial chronic inflammation and non-caseating granuloma. AFB and fungal stains neg, no malignant cells identified Mild transaminitis Weight loss. Neck and back problems, chronic. ? polycystic kidney disease on CT T spot positive Plan Plan of Care D/w family on phone as he did not want to use the blue phone PICC today Continue ceftazidime 2gm IV Q6hrs for 3-4 weeks Cont to monitor LFTS. Check lipase Off azithromycin Probiotics F/u cultures will need f/u ct chest per pulm team LTAC soon D/w nursing CHARLOTTE MCADAMS MD May 12, 2019 09:14
--- NOTE | 2019-05-12 09:44 | NUR ---
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
--- NOTE | 2019-05-12 10:04 | NUR ---
PICC Insertion Note Procedure: Following complete explanation of the PICC procedure including the indications, risks, and potential complications, informed consent was obtained. The possibility for infection was discussed along with signs, symptoms, and prevention. All the questions were answered. Written and verbal patient education was provided. Hand hygiene performed. Standardized central line checklist was utilized. The patient was placed in the supine position, the arm was prepped with chlorhexidine and patient draped with maximum sterile barrier. 2 mL 1% lidocaine was infiltrated into the skin to provide local anesthesia. A thorough assessment of right upper extremity completed. Using real-time ultrasound guidance and standardized micro puncture set, the basilic vein was punctured and a peel away sheath was placed using the modified Seldinger technique. A tip location device was used to ensure adequate catheter placement. The catheter was secured using a securement device and an antimicrobial patch was applied directly on the insertion site followed by a transparent dressing. All ports withdraw blood and flush without resistance. Patient tolerated the procedure without apparent complication(s). Single Lumen Power PICC placement successful and uncomplicated. Placement verified by EKG tip confirmation system and/or chest x-ray. Tip located in the CAJ/SVC. Complications: none Catheter trimmed at 37cm with 1cm visible at insertion site.
--- NOTE | 2019-05-12 10:15 | NUR ---
Patient arrived to ED from [facility] with left hip wound dehiscence. Plan for surgery 12-10 apx 1500. Patient arrived with daughter and clothes. No other belongings.
[2019-05-12 11:00] VITALS: BP 140/99
--- NOTE | 2019-05-12 12:19 | PDOC ---
PULMONARY PROGRESS NOTES Subjective appears comfortable, no sob, cough, pain Vitals Vital Signs Date Time Temp Pulse Resp B/P (MAP) Pulse Ox O2 Delivery O2 Flow Rate FiO2 05/12/19 11:18 Room Air 05/12/19 08:16 97.9 86 16 111/77 (88) 97 97.9 05/12/19 08:00 96.0 General: Alert, No acute distress Lungs: Clear Cardiovascular: S1, S2 Abdomen: Soft, Non-tender Neuro Exam: Alert Extremities: No Edema Skin: Warm Labs Laboratory Tests Test 05/12/19 04:15 White Blood Count 5.4 x10^3/uL (4.0-11.0) Red Blood Count 5.15 x10^6/uL (4.30-5.70) Hemoglobin 14.3 g/dL (13.0-17.5) Hematocrit 42.3 % (39.0-53.0) Mean Corpuscular Volume 82 fL (79-100) Mean Corpuscular Hemoglobin 28 pg (25-35) Mean Corpuscular Hemoglobin Concent 34 g/dL (31-37) Red Cell Distribution Width 13.3 % (11.5-14.5) Platelet Count 216 x10^3/uL (140-400) Neutrophils (%) (Auto) 59 % (31-73) Lymphocytes (%) (Auto) 24 % (24-48) Monocytes (%) (Auto) 8 % (0-9) Eosinophils (%) (Auto) 8 % (0-3) Basophils (%) (Auto) 1 % (0-3) Neutrophils # (Auto) 3.2 x10^3/uL (1.8-7.7) Lymphocytes # (Auto) 1.3 x10^3/uL (1.0-4.8) Monocytes # (Auto) 0.5 x10^3/uL (0.0-1.1) Eosinophils # (Auto) 0.4 x10^3/uL (0.0-0.7) Basophils # (Auto) 0.0 x10^3/uL (0.0-0.2) Sodium Level 140 mmol/L (136-145) Potassium Level 4.1 mmol/L (3.5-5.1) Chloride Level 106 mmol/L (98-107) Carbon Dioxide Level 26 mmol/L (21-32) Anion Gap 8 (6-14) Blood Urea Nitrogen 17 mg/dL (8-26) Creatinine 0.8 mg/dL (0.7-1.3) Estimated GFR (Cockcroft-Gault) 111.3 BUN/Creatinine Ratio 21 (6-20) Glucose Level 97 mg/dL (70-99) Calcium Level 8.6 mg/dL (8.5-10.1) Total Bilirubin 0.3 mg/dL (0.2-1.0) Aspartate Amino Transf (AST/SGOT) 66 U/L (15-37) Alanine Aminotransferase (ALT/SGPT) 85 U/L (16-63) Alkaline Phosphatase 98 U/L (46-116) Total Protein 7.3 g/dL (6.4-8.2) Albumin 2.9 g/dL (3.4-5.0) Albumin/Globulin Ratio 0.7 (1.0-1.7) Lipase 283 U/L (73-393) Laboratory Tests Test 05/12/19 04:15 White Blood Count 5.4 x10^3/uL (4.0-11.0) Red Blood Count 5.15 x10^6/uL (4.30-5.70) Hemoglobin 14.3 g/dL (13.0-17.5) Hematocrit 42.3 % (39.0-53.0) Mean Corpuscular Volume 82 fL (79-100) Mean Corpuscular Hemoglobin 28 pg (25-35) Mean Corpuscular Hemoglobin Concent 34 g/dL (31-37) Red Cell Distribution Width 13.3 % (11.5-14.5) Platelet Count 216 x10^3/uL (140-400) Neutrophils (%) (Auto) 59 % (31-73) Lymphocytes (%) (Auto) 24 % (24-48) Monocytes (%) (Auto) 8 % (0-9) Eosinophils (%) (Auto) 8 % (0-3) Basophils (%) (Auto) 1 % (0-3) Neutrophils # (Auto) 3.2 x10^3/uL (1.8-7.7) Lymphocytes # (Auto) 1.3 x10^3/uL (1.0-4.8) Monocytes # (Auto) 0.5 x10^3/uL (0.0-1.1) Eosinophils # (Auto) 0.4 x10^3/uL (0.0-0.7) Basophils # (Auto) 0.0 x10^3/uL (0.0-0.2) Sodium Level 140 mmol/L (136-145) Potassium Level 4.1 mmol/L (3.5-5.1) Chloride Level 106 mmol/L (98-107) Carbon Dioxide Level 26 mmol/L (21-32) Anion Gap 8 (6-14) Blood Urea Nitrogen 17 mg/dL (8-26) Creatinine 0.8 mg/dL (0.7-1.3) Estimated GFR (Cockcroft-Gault) 111.3 BUN/Creatinine Ratio 21 (6-20) Glucose Level 97 mg/dL (70-99) Calcium Level 8.6 mg/dL (8.5-10.1) Total Bilirubin 0.3 mg/dL (0.2-1.0) Aspartate Amino Transf (AST/SGOT) 66 U/L (15-37) Alanine Aminotransferase (ALT/SGPT) 85 U/L (16-63) Alkaline Phosphatase 98 U/L (46-116) Total Protein 7.3 g/dL (6.4-8.2) Albumin 2.9 g/dL (3.4-5.0) Albumin/Globulin Ratio 0.7 (1.0-1.7) Lipase 283 U/L (73-393) Medications Active Scripts Medications Dose Route/Sig Max Daily Dose Days Date Category No Active Prescriptions or Reported Medications Rx Impression . IMPRESSION: 1. Multiple right upper lobe nodules, largest of them is 2.2 cm, -s/p bronchoscopy, 04/30. AF stain neg. bacterial culture neg. s/p CT guided biospy 05/06 Small focus of interstitial chronic inflammation and non-caseating granuloma. AFB and fungal stains neg, no malignant cells identified Plan . 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
[2019-05-12 15:00] VITALS: BP 126/79
--- NOTE | 2019-05-12 16:09 | NUR ---
SS following up with discharge planning. SS received phone contact from [facility], ; fax [phone], stating that bed was available for pt. Discharge orders received. SS phoned and faxed discharge orders to [facility]. Pt will discharge today and go to [facility] between 1800 and 1830 via [employer] [facility]. Pt's RN notified.
--- NOTE | 2019-05-12 20:57 | PDOC3 ---
Discharge Summary Visit Information Date of Admission: Apr 28, 2019 Date of Discharge: May 12, 2019 Admitting Diagnosis: Cavitary lung mass Final Diagnosis Problems Medical Problems: (1) Dizziness Status: Acute (2) Head pain Status: Acute Brief Hospital Course Allergies Allergies Coded Allergies Type Severity Reaction Last Updated Verified No Known Drug Allergies 04/30/19 No Vital Signs Vital Signs Date Time Temp Pulse Resp B/P (MAP) Pulse Ox O2 Delivery O2 Flow Rate FiO2 05/12/19 15:12 Room Air 05/12/19 15:00 98.2 82 18 126/79 (95) 99 98.2 05/12/19 08:00 96.0 Lab Results Laboratory Tests Test 05/12/19 04:15 White Blood Count 5.4 x10^3/uL (4.0-11.0) Red Blood Count 5.15 x10^6/uL (4.30-5.70) Hemoglobin 14.3 g/dL (13.0-17.5) Hematocrit 42.3 % (39.0-53.0) Mean Corpuscular Volume 82 fL (79-100) Mean Corpuscular Hemoglobin 28 pg (25-35) Mean Corpuscular Hemoglobin Concent 34 g/dL (31-37) Red Cell Distribution Width 13.3 % (11.5-14.5) Platelet Count 216 x10^3/uL (140-400) Neutrophils (%) (Auto) 59 % (31-73) Lymphocytes (%) (Auto) 24 % (24-48) Monocytes (%) (Auto) 8 % (0-9) Eosinophils (%) (Auto) 8 % (0-3) Basophils (%) (Auto) 1 % (0-3) Neutrophils # (Auto) 3.2 x10^3/uL (1.8-7.7) Lymphocytes # (Auto) 1.3 x10^3/uL (1.0-4.8) Monocytes # (Auto) 0.5 x10^3/uL (0.0-1.1) Eosinophils # (Auto) 0.4 x10^3/uL (0.0-0.7) Basophils # (Auto) 0.0 x10^3/uL (0.0-0.2) Sodium Level 140 mmol/L (136-145) Potassium Level 4.1 mmol/L (3.5-5.1) Chloride Level 106 mmol/L (98-107) Carbon Dioxide Level 26 mmol/L (21-32) Anion Gap 8 (6-14) Blood Urea Nitrogen 17 mg/dL (8-26) Creatinine 0.8 mg/dL (0.7-1.3) Estimated GFR (Cockcroft-Gault) 111.3 BUN/Creatinine Ratio 21 (6-20) Glucose Level 97 mg/dL (70-99) Calcium Level 8.6 mg/dL (8.5-10.1) Total Bilirubin 0.3 mg/dL (0.2-1.0) Aspartate Amino Transf (AST/SGOT) 66 U/L (15-37) Alanine Aminotransferase (ALT/SGPT) 85 U/L (16-63) Alkaline Phosphatase 98 U/L (46-116) Total Protein 7.3 g/dL (6.4-8.2) Albumin 2.9 g/dL (3.4-5.0) Albumin/Globulin Ratio 0.7 (1.0-1.7) Lipase 283 U/L (73-393) Laboratory Tests Test 05/12/19 04:15 White Blood Count 5.4 x10^3/uL (4.0-11.0) Red Blood Count 5.15 x10^6/uL (4.30-5.70) Hemoglobin 14.3 g/dL (13.0-17.5) Hematocrit 42.3 % (39.0-53.0) Mean Corpuscular Volume 82 fL (79-100) Mean Corpuscular Hemoglobin 28 pg (25-35) Mean Corpuscular Hemoglobin Concent 34 g/dL (31-37) Red Cell Distribution Width 13.3 % (11.5-14.5) Platelet Count 216 x10^3/uL (140-400) Neutrophils (%) (Auto) 59 % (31-73) Lymphocytes (%) (Auto) 24 % (24-48) Monocytes (%) (Auto) 8 % (0-9) Eosinophils (%) (Auto) 8 % (0-3) Basophils (%) (Auto) 1 % (0-3) Neutrophils # (Auto) 3.2 x10^3/uL (1.8-7.7) Lymphocytes # (Auto) 1.3 x10^3/uL (1.0-4.8) Monocytes # (Auto) 0.5 x10^3/uL (0.0-1.1) Eosinophils # (Auto) 0.4 x10^3/uL (0.0-0.7) Basophils # (Auto) 0.0 x10^3/uL (0.0-0.2) Sodium Level 140 mmol/L (136-145) Potassium Level 4.1 mmol/L (3.5-5.1) Chloride Level 106 mmol/L (98-107) Carbon Dioxide Level 26 mmol/L (21-32) Anion Gap 8 (6-14) Blood Urea Nitrogen 17 mg/dL (8-26) Creatinine 0.8 mg/dL (0.7-1.3) Estimated GFR (Cockcroft-Gault) 111.3 BUN/Creatinine Ratio 21 (6-20) Glucose Level 97 mg/dL (70-99) Calcium Level 8.6 mg/dL (8.5-10.1) Total Bilirubin 0.3 mg/dL (0.2-1.0) Aspartate Amino Transf (AST/SGOT) 66 U/L (15-37) Alanine Aminotransferase (ALT/SGPT) 85 U/L (16-63) Alkaline Phosphatase 98 U/L (46-116) Total Protein 7.3 g/dL (6.4-8.2) Albumin 2.9 g/dL (3.4-5.0) Albumin/Globulin Ratio 0.7 (1.0-1.7) Lipase 283 U/L (73-393) Brief Hospital Course Mr Belcher is a 34-year-old male from [facility] who does not speak Wallisian. It was difficult to obtain much history from the patient and I was able to get hold of his automatic edger who can speak a little bit Wallisian. According to him, the patient was brought into the hospital as he was complaining of dizziness. He does not complain of much cough, fever or night sweats. He does not know whether he had a PPD done when he arrived in [place] 3 years ago. There are no obvious TB exposures. The patient underwent chest x-ray, which was abnormal with infiltrate in the right upper lobe. As a result, he underwent CTA chest. He had numerous nodules in the right upper lobe, largest of them is in the right lung apex, which is cavitary in about 2.2 cm in size. The patient was started on antibiotic Rocephin along with Zithromax. He underwent bronchoscopy 04/30/19 with acid fast staining, being seen by pulmonology and ID. He states he has been told he has kidney, liver, and lung disease previously. LFTs up a bit, transitioning to ceftazidime. PICC placed, plan for LTAC for 3-4 weeks IV antibiotics and transition to PO antibiotics for presumptive melioidosis. He is eating well, has his battery starter present in room with him. pulmonary nodules clustered in the right upper lobe one of which is cavitary. s/p LEft ant lung biopsy 05/06 Cavitary lesion identified in the right upper lobe of the lung measuring 2.2 cm is unchanged.pulmonary nodules clustered in the right upper lobe one of which is cavitary. 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 Greater than 30 minutes spent on d/c Discharge Information Condition at Discharge: Improved Follow Up: Weeks Disposition/Orders: D/C to Another Facility ([facility]) No Active Prescriptions or Reported Meds MARTHA MARCOS MD May 12, 2019 20:57
== END 2019-05-12 18:00 | DRG 867 ==
LOC: ER 16:00 → ED HOLD 18:57 → 6 SOUTH 22:27 → 4 NORTH 05-01 22:45
PROVIDERS: ADMIT Internal Medicine; ATTEND Internal Medicine
PROC: 0B9C8ZX Drainage of Right Upper Lung Lobe, Via Natural or Artificial Opening Endoscopic, Diagnostic (ICD-10-PCS; 2019-04-30)
PROC: 0BBC3ZX Excision of Right Upper Lung Lobe, Percutaneous Approach, Diagnostic (ICD-10-PCS; principal; 2019-05-06)
PROC: 05HY33Z Insertion of Infusion Device into Upper Vein, Percutaneous Approach (ICD-10-PCS; 2019-05-09)
DX: A24.9 Melioidosis, unspecified (principal); E43 Unspecified severe protein-calorie malnutrition; A15.0 Tuberculosis of lung; Q61.3 Polycystic kidney, unspecified; M31.30 Wegener's granulomatosis without renal involvement; M48.56XA Collapsed vertebra, not elsewhere classified, lumbar region, initial encounter for fracture; L92.9 Granulomatous disorder of the skin and subcutaneous tissue, unspecified; R91.8 Other nonspecific abnormal finding of lung field; I28.8 Other diseases of pulmonary vessels; G89.29 Other chronic pain; Z68.21 Body mass index [BMI] 21.0-21.9, adult; Y92.89 Other specified places as the place of occurrence of the external cause; Z82.49 Family history of ischemic heart disease and other diseases of the circulatory system
CPT/HCPCS: 31622; 32405; 36415; 36569; 70450; 71045; 71046; 71250; 71275; 72110; 72125; 74177; 77012; 80048; 80053; 83605; 83690; 83735; 84484; 85025; 85379; 85610; 85651; 86140; 86481; 87040; 87070; 87071; 87075; 87102; 87116; 87205; 88112; 88305; 88312; 93005; 94640; 94760; 96374; 96375; 99152; J0456; J0696; J0713; J0780; J1200; J1650; J1885; J2250; J2704; J3010; J3475; J7030; J7050; J7120; J7613; J7620; Q9967; 99285-25; G0378

== ENCOUNTER → 2019-06-25 | Outpatient (CLI) | payer BC ==
[2019-06-25 11:17] LABS: ALBUMIN 3.3 g/dL (3.4-5.0); CALCIUM 8.7 mg/dL (8.5-10.1); CREATININE 0.7 mg/dL (0.7-1.3); GFR 129.9; PHOSPHORUS 2.8 mg/dL (2.6-4.7); POTASSIUM 3.4 mmol/L (3.5-5.1)
== END | disposition home or self-care (01) ==
LOC: LAB 10:39
PROVIDERS: ATTEND Internal Medicine Nephrology
DX: Q61.3 Polycystic kidney, unspecified (principal)
CPT/HCPCS: 36415; 80069

== ENCOUNTER → 2019-07-24 | Outpatient (CLI) | payer BC ==
[2019-07-24 11:12] LABS: ALBUMIN 3.5 g/dL (3.4-5.0); CREATININE 0.8 mg/dL (0.7-1.3); GFR 111.3; POTASSIUM 3.7 mmol/L (3.5-5.1); URIC ACID 6.8 mg/dL (3.5-7.2)
[2019-07-24 11:20] LABS: HEMATOCRIT 47.5 % (39.0-53.0); HEMOGLOBIN 16.1 g/dL (13.0-17.5)
[2019-07-28 21:07] LABS: TOTAL SERUM CREATININE 0.76 mg/dL (0.76-1.27); TOTAL URINE CREATININE 93.7 mg/dL (Not Estab.); UR PROTEIN 13.6 mg/dL (Not Estab.)
== END | disposition home or self-care (01) ==
LOC: LAB 10:20
PROVIDERS: ATTEND Nurse Practitioner Adult Health
DX: A00-B99 Certain infectious and parasitic diseases (principal); Q61.3 Polycystic kidney, unspecified
CPT/HCPCS: 36415; 80069; 82306; 82575; 84156; 84550; 85014; 85018

== ENCOUNTER → 2019-10-30 | Outpatient (CLI) | payer BC ==
[2019-10-30 11:22] LABS: HEMATOCRIT 44.9 % (39.0-53.0); HEMOGLOBIN 15.4 g/dL (13.0-17.5)
[2019-10-30 11:27] LABS: ALBUMIN 3.1 g/dL (3.4-5.0); CALCIUM 8.7 mg/dL (8.5-10.1); CREATININE 0.9 mg/dL (0.7-1.3); GFR 97.2; PHOSPHORUS 2.7 mg/dL (2.6-4.7); POTASSIUM 3.9 mmol/L (3.5-5.1)
== END | disposition home or self-care (01) ==
LOC: LAB 10:48
PROVIDERS: ATTEND Nurse Practitioner Adult Health
DX: I10 Essential (primary) hypertension (principal); A00-B99 Certain infectious and parasitic diseases; Q61.3 Polycystic kidney, unspecified
CPT/HCPCS: 36415; 80069; 82306; 85014; 85018

== ENCOUNTER 2020-05-22 12:17 | Emergency (ER) | payer BC ==
[~2020-05-22] VITALS: Ht 160 cm; Wt 50.0 kg
--- NOTE | 2020-05-22 12:39 | PHYS DOC ---
Past Medical History Additional Past Medical Histor: MELIOIDOSIS Past Surgical History: No Surgical History Smoking Status: Never Smoker Alcohol Use: None Drug Use: None General Adult EDM: Chief Complaint: DIZZY/LIGHT HEADED HPI: HPI: Patient is a 35 year old male presents with chief complaint of room spinning dizziness. Patient was admitted last April and diagnosed with presumptive Melioidosis. Patient last night began having room spinning dizziness that is worse with moving his head. Patient describes some hearing loss as well as blurry vision as well. Patient had 1 episode nausea vomiting last night. Patient denies any pain. Patient denies any recent illnesses such as fever, chills, cough or shortness of breath. Symptoms are moderate at rest and severe with movement of his head. Review of Systems: Review of Systems: Constitutional: Denies fever or chills. [] Eyes: Complains of blurry vision HENT: Denies nasal congestion or sore throat. [] Complains of some hearing loss/ringing in his ears Respiratory: Denies cough or shortness of breath. [] Cardiovascular: Denies chest pain or edema. [] GI: Denies abdominal pain,, bloody stools or diarrhea. Patient had nausea vomiting last night and is a little nauseous right now [] : Denies dysuria. [] Musculoskeletal: Denies back pain or joint pain. [] Integument: Denies rash. [] Neurologic: Denies headache, focal weakness or sensory changes. [] Patient has had some dizziness Endocrine: Denies polyuria or polydipsia. [] Lymphatic: Denies swollen glands. [] Psychiatric: Denies depression or anxiety. [] Heart Score: Risk Factors: Risk Factors: DM, Current or recent (<one month) smoker, HTN, HLP, family history of CAD, obesity. Risk Scores: Score 0 - 3: 2.5% MACE over next 6 weeks - Discharge Home Score 4 - 6: 20.3% MACE over next 6 weeks - Admit for Clinical Observation Score 7 - 10: 72.7% MACE over next 6 weeks - Early Invasive Strategies Current Medications: Current Medications Ondansetron HCl (Zofran) 4 mg 1X ONCE IVP Last administered on 05/22/20at 13:13; Start 05/22/20 at 12:45; Stop 05/22/20 at 12:46; Status DC Sodium Chloride 1,000 ml @ 1,000 mls/hr 1X ONCE IV Last administered on 05/22/20at 13:13; Start 05/22/20 at 12:45; Stop 05/22/20 at 13:44; Status DC Meclizine HCl (Antivert) 25 mg 1X ONCE PO Last administered on 05/22/20at 13:13; Start 05/22/20 at 12:45; Stop 05/22/20 at 12:46; Status DC Active Scripts Active No Active Prescriptions or Reported Medications Allergies: Allergies: Allergies Coded Allergies Type Severity Reaction Last Updated Verified No Known Drug Allergies 04/30/19 No Physical Exam: PE: Constitutional: Well developed, well nourished, no acute distress, non-toxic appearance. [] HENT: Normocephalic, atraumatic, bilateral external ears normal, oropharynx moist, no oral exudates, nose normal. [] Eyes: PERRLA, EOMI, conjunctiva normal, no discharge. [] Neck: Normal range of motion, no tenderness, supple, no stridor. [] Cardiovascular:Heart rate regular rhythm, no murmur [] Lungs & Thorax: Bilateral breath sounds clear, no respiratory distress Abdomen: soft, no tenderness, no masses, no pulsatile masses. [] Skin: Warm, dry, no erythema, no rash. [] Back: No tenderness, no CVA tenderness. [] Extremities: No tenderness, no cyanosis, no clubbing, ROM intact, no edema. [] Neurologic: Alert and oriented X 3, normal motor function, normal sensory function, no focal deficits noted. [] Normal cerebellar exam Psychologic: Affect normal, judgement normal, mood normal. [] Current Patient Data: Labs: Laboratory Tests Test 05/22/20 12:50 White Blood Count 7.6 x10^3/uL Red Blood Count 5.69 x10^6/uL Hemoglobin 15.8 g/dL Hematocrit 46.1 % Mean Corpuscular Volume 81 fL Mean Corpuscular Hemoglobin 28 pg Mean Corpuscular Hemoglobin Concent 34 g/dL Red Cell Distribution Width 13.9 % Platelet Count 226 x10^3/uL Neutrophils (%) (Auto) 59 % Lymphocytes (%) (Auto) 28 % Monocytes (%) (Auto) 6 % Eosinophils (%) (Auto) 7 % Basophils (%) (Auto) 0 % Neutrophils # (Auto) 4.4 x10^3/uL Lymphocytes # (Auto) 2.1 x10^3/uL Monocytes # (Auto) 0.5 x10^3/uL Eosinophils # (Auto) 0.5 x10^3/uL Basophils # (Auto) 0.0 x10^3/uL Sodium Level 138 mmol/L Potassium Level 3.6 mmol/L Chloride Level 104 mmol/L Carbon Dioxide Level 24 mmol/L Anion Gap 10 Blood Urea Nitrogen 13 mg/dL Creatinine 0.9 mg/dL Estimated GFR (Cockcroft-Gault) 96.6 BUN/Creatinine Ratio 14 Glucose Level 89 mg/dL Calcium Level 8.7 mg/dL Total Bilirubin 0.6 mg/dL Aspartate Amino Transf (AST/SGOT) 17 U/L Alanine Aminotransferase (ALT/SGPT) 20 U/L Alkaline Phosphatase 92 U/L Total Protein 7.3 g/dL Albumin 3.1 g/dL Albumin/Globulin Ratio 0.7 Current Medications Medications (Trade) Dose Ordered Sig/Clif Route PRN Reason Start Time Stop Time Status Last Admin Dose Admin Ondansetron HCl (Zofran) 4 mg 1X ONCE IVP 05/22/20 12:45 05/22/20 12:46 DC 05/22/20 13:13 Sodium Chloride 1,000 ml @ 1,000 mls/hr 1X ONCE IV 05/22/20 12:45 05/22/20 13:44 DC 05/22/20 13:13 Meclizine HCl (Antivert) 25 mg 1X ONCE PO 05/22/20 12:45 05/22/20 12:46 DC 05/22/20 13:13 Vital Signs: Vital Signs Date Time Temp Pulse Resp B/P (MAP) Pulse Ox O2 Delivery O2 Flow Rate FiO2 05/22/20 12:45 97.9 64 16 158/99 (118) Room Air 97.9 EKG: EKG: [] EKG interpreted by me normal sinus rhythm with rate of 72 normal axis normal intervals normal ST segments Radiology/Procedures: Radiology/Procedures: [][facility] [address] [place] [address] IMAGING REPORT Signed PATIENT: EDA CARO ACCOUNT: [id number] : 1985 LOCATION: ER AGE: 35 SEX: M EXAM STATUS: PRE ER ORD. PHYSICIAN: HARJIT GARCIA MD REASON: DIZZINESS PROCEDURE: PORTABLE CHEST 1V XR CHEST 1V Clinical indications: Dizziness COMPARISON: May 06, 2019. Findings: Again seen is a cavitary lung mass within the lateral aspect of the right upper lobe which appears larger. Previously seen consolidative infiltrate more inferiorly within the right upper lobe has resolved. There is a new lung nodule within the left lung base. No pleural effusion or pneumothorax is seen. The heart size and mediastinum and pulmonary vasculature and both alexis are stable. IMPRESSION: Enlargement of cavitary lung mass within the lateral aspect of the right upper lobe. New small left lung base nodule. Electronically signed by: Crow Castrejon MD (05/22/2020 1:13 PM) [id number] DICTATED and SIGNED BY: CROW CASTREJON MD DATE: 05/22/20 [id number] [facility] [address] [place], [place] [id number] IMAGING REPORT Signed PATIENT: EDA CARO ACCOUNT: [id number] : 1985 LOCATION: ER AGE: 35 SEX: M EXAM STATUS: PRE ER ORD. PHYSICIAN: HARJIT GARCIA MD REASON: DIZZINESS PROCEDURE: CT HEAD WO CONTRAST CT scan of the head without contrast 05/22/2020 Clinical History: Dizziness. Technique: Unenhanced, contiguous, 5 mm axial sections were obtained through the head. One or more of the following individualized dose reduction techniques were utilized for this study: 1. Automated exposure control. 2. Adjustment of the mA and/or kV according to patient size. 3. Use of iterative reconstruction technique. Findings: Comparison study is dated 04/28/2019. The ventricles and sulci are within normal limits in size and configuration. No acute parenchymal abnormality is seen. No extra-axial fluid collection is noted. No skull fracture is seen. Impression: No acute intracranial abnormality is seen. Electronically signed by: Renzo Buchanan MD (05/22/2020 1:27 PM) [id number] DICTATED and SIGNED BY: RENZO BUCHANAN MD DATE: 05/22/20 [id number] Course & Med Decision Making: Course & Med Decision Making Pertinent Labs and Imaging studies reviewed. (See chart for details) [] 35-year-old male presents with dizziness. Patient has a normal neurologic exam and a reassuring work-up other than a cavitary lesion in his lungs that is increased from last year. Patient has no symptoms of pneumonia. Most likely patient has vertigo. Patient will be placed on meclizine and Zofran and give referral to pulmonary for the cavitary lesion follow-up. Dragon Disclaimer: Dragon Disclaimer: This electronic medical record was generated, in whole or in part, using a voice recognition dictation system. Departure Departure Impression: Primary Impression: Dizziness Additional Impression: Cavitary lesion of lung Disposition: 01 DC HOME SELF CARE/HOMELESS Condition: STABLE Referrals: UNKNOWN PCP NAME (PCP) GENEVIEVE CHAIREZ MD Patient Instructions: Dizziness Additional Instructions: EMERGENCY DEPARTMENT GENERAL DISCHARGE INSTRUCTIONS THANK YOU for coming to [facility] Emergency Department (ED) today and trusting us with your care. We trust that you had a positive experience in our Emergency Department. If you wish to speak to the department Management you can contact the chemistry department chair at . YOUR FOLLOW UP INSTRUCTIONS ARE FOLLOWS: Do you have a private doctor? If you do not have a private doctor, please ask for a resource list of physicians or clinics that may be able to assist you with follow up care. The Emergency Physician has interpreted your x-rays. The X-ray specialist will also review them. If there is a change in the findings you will be notified in 48 hours when at all possible. A lab test or lab culture may have been done, your results will be reviewed and you will be notified if you need a change in treatment. ADDITIONAL INSTRUCTIONS AND INFORMATION Your care today has been supervised by a physician who is specially trained in emergency care. Many problems require more than one evaluation for a complete diagnosis and treatment. We recommend that you schedule your follow up appointment as recommended to ensure complete treatment of your illness or injury. If you are unable to obtain follow up care and continue to have a problem, or if your condition worsens we recommend that you return to the ED. We are not able to safely determine your condition over the phone nor are we able to give sound medical advice over the phone. For these safety reasons, if you call for medical advice we will ask you to come to the ED for further evaluation If you have any questions regarding these discharge instructions please call the ED at . SAFETY INFORMATION In the interest of safety, wellness, and injury prevention; we encourage you to wear your seatbelt, if you smoke; quit smoking, and we encourage your family to use protective helmet for bicycling and other sporting events that present an increased risk for head injury. IF YOUR SYMPTOMS WORSEN OR NEW SYMPTOMS DEVELOP, OR YOU HAVE CONCERNS ABOUT YOUR CONDITION; OR IF YOUR CONDITION WORSENS WHILE YOU ARE WAITING FOR YOUR FOLLOW UP APPOINTMENT; EITHER CONTACT YOUR PRIMARY CARE DOCTOR, THE PHYSICIAN WHOSE NAME AND NUMBER YOU WERE GIVEN, OR RETURN TO THE ED IMMEDIATELY. Scripts Ondansetron Hcl (ZOFRAN) 4 Mg Tablet 1 TAB PO Q6HRS for nausea, #12 TAB Prov: HARJIT GARCIA MD 05/22/20 Meclizine Hcl (MECLIZINE HCL) 25 Mg Tablet 25 MG PO PRN TID PRN for dizziness, #30 dizziness Prov: HARJIT GARCIA MD 05/22/20 HARJIT GARCIA MD May 22, 2020 12:39
[2020-05-22] MEDS ORDERED: MECLIZINE HCL 12.5 MG TABLET. PO ONE (12:45)
[2020-05-22] MEDS ORDERED: IV NORMAL SALINE 1000ML BAG 1,000 ML IV ONE (12:45)
[2020-05-22] MEDS ORDERED: ONDANSETRON PF 4 MG/2 ML VIAL. IVP ONE (12:45)
--- NOTE | 2020-05-22 13:01 | EKG ---
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
[2020-05-22 13:07] LABS: BASO % 0 % (0-3); EOS # 0.5 x10^3/uL (0.0-0.7); EOS % 7 % (0-3); HEMATOCRIT 46.1 % (39.0-53.0); HEMOGLOBIN 15.8 g/dL (13.0-17.5); LYMPH # 2.1 x10^3/uL (1.0-4.8); LYMPH % 28 % (24-48); MEAN CORPUSCULAR HEMOGLOBIN 28 pg (25-35); MEAN CORPUSCULAR HGB CONC 34 g/dL (31-37); MEAN CORPUSCULAR VOLUME 81 fL (79-100); MONO # 0.5 x10^3/uL (0.0-1.1); MONO % 6 % (0-9); NEUT # 4.4 x10^3/uL (1.8-7.7); NEUT % 59 % (31-73); PLATELET COUNT 226 x10^3/uL (140-400); RED BLOOD COUNT 5.69 x10^6/uL (4.30-5.70); RED CELL DISTRIBUTION WIDTH 13.9 % (11.5-14.5); WHITE BLOOD COUNT 7.6 x10^3/uL (4.0-11.0)
--- NOTE | 2020-05-22 13:15 | RAD ---
XR CHEST 1V Clinical indications: Dizziness COMPARISON: May 06, 2019. Findings: Again seen is a cavitary lung mass within the lateral aspect of the right upper lobe which appears larger. Previously seen consolidative infiltrate more inferiorly within the right upper lobe has resolved. There is a new lung nodule within the left lung base. No pleural effusion or pneumothor ax is seen. The heart size and mediastinum and pulmonary vasculature and both alexis are stable. IMPRESSION: Enlargement of cavitary lung mass within the lateral aspect of the right upper lobe. New small left lung base nodule. Electronically signed by: Filiberto Castrejon MD (05/22/2020 1:13 PM) [id number]
[2020-05-22 13:18] LABS: CALCIUM 8.7 mg/dL (8.5-10.1); CREATININE 0.9 mg/dL (0.7-1.3); GFR 96.6; POTASSIUM 3.6 mmol/L (3.5-5.1)
[2020-05-22 13:24] LABS: ALBUMIN 3.1 g/dL (3.4-5.0); ALBUMIN/GLOBULIN RATIO 0.7 (1.0-1.7); TOTAL BILIRUBIN 0.6 mg/dL (0.2-1.0); TOTAL PROTEIN 7.3 g/dL (6.4-8.2)
--- NOTE | 2020-05-22 13:29 | RAD ---
CT scan of the head without contrast 05/22/2020 Clinical History: Dizziness. Technique: Unenhanced, contiguous, 5 mm axial sections were obtained through the head. One or more of the following individualized dose reduction techniques were utilized for this study: 1. Automated exposure control. 2. Adjustment of the mA and/or kV according to patient size. 3. Use of iterative reconstruction technique. Findings: Comparison study is dated 04/28/2019. The ventricles and sulci are within normal limits in size and configuration. No acute parenchymal abn ormality is seen. No extra-axial fluid collection is noted. No skull fracture is seen. Impression: No acute intracranial abnormality is seen. Electronically signed by: Renzo Buchanan MD (05/22/2020 1:27 PM) [id number]
[2020-05-22] MEDS ORDERED: ONDA4TAB7 PO (14:09)
[2020-05-22] MEDS ORDERED: MECL-75 PO (14:09)
[2020-05-22 14:41] VITALS: BP 122/77
== END 2020-05-22 14:45 | disposition home or self-care (01) ==
LOC: ER 12:17
DX: R42 Dizziness and giddiness (principal); R91.1 Solitary pulmonary nodule; R11.2 Nausea with vomiting, unspecified; H53.8 Other visual disturbances; H91.93 Unspecified hearing loss, bilateral
CPT/HCPCS: 36415; 70450; 71045; 80053; 85025; 93005; 96361; 96374; 99285; J2405; J7030; J8597

== ENCOUNTER → 2020-06-15 | Outpatient (CLI) | payer BC ==
[2020-05-22 14:41] VITALS: BP 122/77
[~2020-06-15] MED LIST: MECL-75 PO; ONDA4TAB7 PO
[2020-06-15 11:17] LABS: ALBUMIN 3.2 g/dL (3.4-5.0); CALCIUM 8.7 mg/dL (8.5-10.1); CREATININE 1.1 mg/dL (0.7-1.3); GFR 76.6; PHOSPHORUS 2.5 mg/dL (2.6-4.7); POTASSIUM 3.2 mmol/L (3.5-5.1)
== END ==
LOC: LAB 10:23
PROVIDERS: ATTEND Internal Medicine Nephrology
DX: E55.9 Vitamin D deficiency, unspecified (principal); A00-B99 Certain infectious and parasitic diseases; I10 Essential (primary) hypertension; Q61.3 Polycystic kidney, unspecified; Z68.21 Body mass index [BMI] 21.0-21.9, adult
CPT/HCPCS: 36415; 80069

== ENCOUNTER → 2020-06-28 | Outpatient (CLI) | payer BC ==
[2020-06-28 12:34] LABS: ALBUMIN 3.4 g/dL (3.4-5.0); CALCIUM 8.6 mg/dL (8.5-10.1); CREATININE 1.1 mg/dL (0.7-1.3); GFR 76.6; PHOSPHORUS 3.2 mg/dL (2.6-4.7)
[2020-06-28 12:40] LABS: POTASSIUM 3.6 mmol/L (3.5-5.1)
== END ==
LOC: LAB 11:36
PROVIDERS: ATTEND Nurse Practitioner Adult Health
DX: E87.6 Hypokalemia (principal); I10 Essential (primary) hypertension; E55.9 Vitamin D deficiency, unspecified; Q61.3 Polycystic kidney, unspecified
CPT/HCPCS: 36415; 80069

== ENCOUNTER → 2021-01-03 | Outpatient (CLI) | payer BC ==
[2021-01-03 09:42] LABS: HEMATOCRIT 45.9 % (39.0-53.0); HEMOGLOBIN 15.7 g/dL (13.0-17.5)
[2021-01-03 10:21] LABS: ALBUMIN 3.2 g/dL (3.4-5.0); CALCIUM 8.7 mg/dL (8.5-10.1); CREATININE 0.9 mg/dL (0.7-1.3); GFR 96.6; POTASSIUM 3.6 mmol/L (3.5-5.1)
== END ==
LOC: LAB 09:15
PROVIDERS: ATTEND Nurse Practitioner Adult Health
DX: I10 Essential (primary) hypertension (principal); E55.9 Vitamin D deficiency, unspecified; E87.6 Hypokalemia; Q61.3 Polycystic kidney, unspecified
CPT/HCPCS: 36415; 80069; 82306; 85014; 85018

== ENCOUNTER 2021-01-20 18:33 | Emergency (ER) | payer BC ==
[~2021-01-20] VITALS: Ht 160 cm; Wt 50.0 kg
--- NOTE | 2021-01-20 18:49 | PHYS DOC ---
Past Medical History Additional Past Medical Histor: MELIOIDOSIS Past Surgical History: No Surgical History Smoking Status: Never Smoker Alcohol Use: None Drug Use: None General Adult EDM: Chief Complaint: CHEST WALL PAIN HPI: HPI: Patient is a 35 year old male with persistent right upper lobe lung lesion pr esents for evaluation of left sided chest pain. Onset of chest discomfort started 1720 hrs. while at work. 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 Chest discomfort is located left chest angle of the ribs--inferior and lateral to the nipple. Patient states pain was sharp stabbing pain it was exacerbated with movement he denied any associated shortness of breath. Patient denied any substernal chest discomfort. Patient's discomfort lasted approximately 20 minutes then completely resolved. At the time of my exam patient has no complaints. Patient arrived via EMS. He was 100% on room air he is not tachycardic. EKG performed shows no acute ischemic changes. Patient is accompanied by his brother who speaks Portuguese and is used to translate for the patient. Review of Systems: Review of Systems: Review of systems: Constitutional symptoms- No fever, no chills. Eyes- No Discharge, No Visual Loss Respiratory symptoms- No shortness of breath, No wheezing, No Dyspnea on Exertion Cardiovascular Systems; Positive musculoskeletal chest pain, No Palpitations, No syncope Gastrointestinal symptoms: NO abdominal pain, no nausea, no vomiting or diarrhea. Genitourinary symptoms: No dysuria. Musculoskeletal symptoms: No back pain No extremity pain. Positive musculoskeletal chest pain NEUROLOGICAL Symptoms: No headache, no generalized weakness; No focal Weakness Skin: No rash. Heart Score: C/O Chest Pain: N/A Risk Factors: Risk Factors: DM, Current or recent (<one month) smoker, HTN, HLP, family history of CAD, obesity. Risk Scores: Score 0 - 3: 2.5% MACE over next 6 weeks - Discharge Home Score 4 - 6: 20.3% MACE over next 6 weeks - Admit for Clinical Observation Score 7 - 10: 72.7% MACE over next 6 weeks - Early Invasive Strategies Allergies: Allergies: Allergies Coded Allergies Type Severity Reaction Last Updated Verified No Known Drug Allergies 04/30/19 No Physical Exam: PE: Constitutional: Well developed, well nourished, no acute distress, non-toxic appearance. [] HENT: Normocephalic, atraumatic, bilateral external ears normal, oropharynx moist, no oral exudates, nose normal. [] Eyes: PERRLA, EOMI, conjunctiva normal, no discharge. [] Neck: Normal range of motion, no tenderness, supple, no stridor. [] Cardiovascular:Heart rate regular rhythm, no murmur [] Lungs & Thorax: Bilateral breath sounds clear to auscultation [] Abdomen: Bowel sounds normal, soft, no tenderness, no masses, no pulsatile masses. [] Skin: Warm, dry, no erythema, no rash. [] Back: No tenderness, no CVA tenderness. [] Extremities: No tenderness, no cyanosis, no clubbing, ROM intact, no edema. [] Neurologic: Alert and oriented X 3, normal motor function, normal sensory fu nction, no focal deficits noted. [] Psychologic: Affect normal, judgement normal, mood normal. [] EKG: EKG: [] Performed at 1844 Rate 68 Normal sinus rhythm No ST elevation No ST depression No acute PA Radiology/Procedures: Radiology/Procedures: [] Impression: Comparisons: 05/22/2020 FINDINGS: The cardiomediastinal silhouette and pulmonary vessels are within normal limits. Persistent rounded opacity at the right upper lung. No pleural effusion. IMPRESSION: Persistent right upper lobe consolidation. No acute cardiopulmonary process. Electronically signed by: Belinda Thornton MD (01/20/2021 6:58 PM) [facility] Course & Med Decision Making: Course & Med Decision Making Pertinent Labs and Imaging studies reviewed. (See chart for details) [] Patient was evaluated for chief complaint. Work-up consisted of laboratory analysis radiologic imaging and EKG. Results reviewed and discussed with the patient and brother. No acute abnormalities. Patient's discomfort completely resolved. At this time feel patient is stable for discharge he will need to continue taking his prescription medications follow-up with his primary care physician as needed. Dragon Disclaimer: Dragon Disclaimer: This electronic medical record was generated, in whole or in part, using a voice recognition dictation system. Departure Departure Impression: Primary Impression: Musculoskeletal chest pain Condition: STABLE Referrals: XOCHITL LAWSON MD (PCP) Patient Instructions: Chest Wall Pain, Musculoskeletal Pain ASIF MCKENZIE DO Jan 20, 2021 18:49
--- NOTE | 2021-01-20 19:00 | RAD ---
Exam: Chest one view INDICATION: Chest pain TECHNIQUE: Frontal view of the chest Comparisons: 05/22/2020 FINDINGS: The cardiomediastinal silhouette and pulmonary vessels are within normal limits. Persistent rounded opacity at the right upper lung. No pleural effusion. IMPRESSION: Persistent right upper lobe consolidation. No acute cardiopulmonary process. Electronically signed by: Belinda Thornton MD (01/20/2021 6:58 PM) [facility]
[2021-01-20 19:08] LABS: BASO % 0 % (0-3); EOS # 0.4 x10^3/uL (0.0-0.7); EOS % 7 % (0-3); HEMATOCRIT 43.5 % (39.0-53.0); HEMOGLOBIN 15.2 g/dL (13.0-17.5); LYMPH # 1.6 x10^3/uL (1.0-4.8); LYMPH % 25 % (24-48); MEAN CORPUSCULAR HEMOGLOBIN 28 pg (25-35); MEAN CORPUSCULAR HGB CONC 35 g/dL (31-37); MEAN CORPUSCULAR VOLUME 81 fL (79-100); MONO # 0.4 x10^3/uL (0.0-1.1); MONO % 7 % (0-9); NEUT # 4.1 x10^3/uL (1.8-7.7); NEUT % 62 % (31-73); PLATELET COUNT 203 x10^3/uL (140-400); RED BLOOD COUNT 5.39 x10^6/uL (4.30-5.70); RED CELL DISTRIBUTION WIDTH 13.2 % (11.5-14.5); WHITE BLOOD COUNT 6.6 x10^3/uL (4.0-11.0)
[2021-01-20 19:15] LABS: CALCIUM 8.5 mg/dL (8.5-10.1); CREATININE 0.9 mg/dL (0.7-1.3); GFR 96.6; POTASSIUM 3.8 mmol/L (3.5-5.1)
[2021-01-20 19:19] LABS: ALBUMIN 3.4 g/dL (3.4-5.0); ALBUMIN/GLOBULIN RATIO 0.9 (1.0-1.7); TOTAL BILIRUBIN 0.5 mg/dL (0.2-1.0); TOTAL PROTEIN 7.3 g/dL (6.4-8.2)
--- NOTE | 2021-01-20 19:46 | EKG ---
[facility] [address] [place] [address] Test Date: 2021-01-20 Test Time: 18:44:08 Pat Name: EDA CARO Department: Room: Gender: M [employer]: : 1985 Requested By: ASIF MCKENZIE Order Number: [id number] Reading MD: Measurements Intervals [place] Rate: 68 P: 58 [place]: 166 QRS: 13 QRSD: 96 T: 28 QT: 360 QTc: 383 Interpretive Statements SINUS RHYTHM NON SPECIFIC ST-T ABNORMALITY (ELEVATION) OTHERWISE NORMAL ECG RI6.02 No previous ECG available for comparison
[2021-01-20 19:57] VITALS: BP 148/96
== END 2021-01-20 20:08 | disposition home or self-care (01) ==
LOC: ER 18:33
DX: R07.89 Other chest pain (principal)
CPT/HCPCS: 36415; 71045; 80053; 83880; 84484; 85025; 93005; 99285

== ENCOUNTER → 2021-08-10 | Outpatient (CLI) | payer BC | LOC: LAB 10:05 | PROVIDERS: ATTEND Nurse Practitioner Adult Health | DX: Q61.3 Polycystic kidney, unspecified (principal); I10 Essential (primary) hypertension; E55.9 Vitamin D deficiency, unspecified; E87.6 Hypokalemia | CPT/HCPCS: 82306 ==